=== PATIENT | female | born 1945 | race Caucasian/White ===

== ENCOUNTER 2016-07-25 18:48 | Inpatient (IN) | payer OTHER ==
[~2016-07-25] VITALS: Ht 156.2 cm; Wt 44.5 kg
[~2016-07-25 18:48] MED LIST: ADVAIR DISKU1 INH; ALBUTEROL HFA60 DOSE IN; ATIVAN0.5 MG PO; CARVEDILOL3.125 MG PO; EPIPEN 2-PAK0.3 MG; FERROUS SULFAT324 MG PO; MULTIVITAMIN1 TAB PO; NAPROSYN375 MG PO; PRILOSEC20 MG PO; SLOW-MAG PO
--- NOTE | 2016-07-25 20:15 | DIAGNOSTIC IMAGING REPORT ---
PROCEDURE: XR CHEST 2 VIEW INDICATION: GENERLIZED WEAKNESS AND HYPOXIA, initial encounter TECHNIQUE: PA and lateral view. COMPARISON: None. FINDINGS: Hyperinflation with blunting of the left costophrenic angle. Small left basilar infiltrate. Left mid lung scar. Cardiovascular structures are normal. Bony thorax is unremarkable. IMPRESSION: 1. Small left basilar infiltrate 2. COPD with left mid lung scarring
--- NOTE | 2016-07-25 20:32 | ED CLINICAL REPORT ---
Clinical Report - Physicians/Mid Levels [facility] [address] [place] [address] 07/25/2016 18:49 Patient: ELSY FIELDS Arrived- By private vehicle. Historian- patient. HISTORY OF PRESENT ILLNESS Chief Complaint: COUGH. Generalized weakness. This started pastmonth and is still present and worsening. It was abrupt in onset and has been constant but is not gone now. The illness is described as moderate. The patient has had a cough. She has had sputum production (thick yellow). (patient also having generalized weakness. Patient was recently seen by their doctor and prescribed Levaquin for urinary tract infection. Patient has been taking antibiotic for past several days without improvement Of generalize weakness. Patient reports that the urine has improved in color however.). Additional history - No known contact with a sick individual. Similar symptoms previously: Twice. Recent medical care: The patient was seen recently in a clinic. REVIEW OF SYSTEMS No headache, vomiting, diarrhea, abdominal pain or pedal edema. No calf pain or skin rash. All systems otherwise negative, except as recorded above. PAST HISTORY See nurses notes. SOCIAL HISTORY Smoker- current status unknown. No alcohol use or drug use. No recent travel. Is a local resident. ADDITIONAL NOTES The nursing notes have been reviewed. PHYSICAL EXAM Vital Signs: 07/25/2016 19:03 BP: 146/70. HR: 94. RR: 20. O2 saturation: 87%. Temp: 97.5 F. Hypertensive. Oxygen saturation normal. Appearance: Alert. No acute distress. Eyes: Pupils equal, round and reactive to light. Eyes normal inspection. ENT: Ears normal. Nose normal. Pharynx normal. Uvula midline. Neck: Normal inspection. Neck supple. CVS: Normal heart rate and rhythm. Heart sounds normal. Pulses normal. Respiratory: No respiratory distress. No respiratory distress. Mild rhonchi present in the left lung base posteriorly. No wheezes or stridor. Abdomen: Soft and nontender. No organomegaly. Back: Normal inspection. Skin: Skin warm and dry. Normal skin color. No rash. Normal skin turgor. Extremities: Extremities exhibit normal ROM. No lower extremity edema. Neuro: Oriented X 3. No motor deficit. No sensory deficit. LABS, X-RAYS, AND EKG Chest X-ray: (Acute left lower lobe pneumonia). Views: PA and lateral. The X-rays were independently viewed by me and interpreted contemporaneously by me. A comparison with prior films reveals that the findings are new. Laboratory Tests: CBC w Diff: (JULIO C: 07/28/2016 07:35) ( [facility] 07/28/2016 08:36) Final results Test Result Flag Units (Reference) WHITE BLOOD COUNT 8.4 K/uL (4.5-11.5) RED BLOOD COUNT 3.34 L M/uL (4.00-5.20) HEMOGLOBIN 10.8 L gm/dL (12.0-16.0) HEMATOCRIT 33.2 L % (36.0-46.0) MEAN CELL VOLUME 100 fL (80-100) MEAN CORPUSCULAR HGB 32 pg (26-34) MEAN CORPUSCULAR HGB CONC 32 g/dL (31-37) RED CELL DISTRIBUTION WIDTH 13.2 % (11.6-14.8) PLATELET COUNT 493 H K/uL (150-400) THIS MAY BE INACCURATE DUE TO SOME PLATELET CLUMPS NOTED.CONSISTENT WITH PREVIOUS RESULTS. NEUTROPHIL % 73.5 % (50-75) LYMPH % 8.3 L % (25-40) MONO % 11.7 % (3-14) EOSINOPHIL % 6.1 H % (0-4) BASOPHIL % 0.4 % (0-2) CMP: (JULIO C: 07/28/2016 07:35) ( MsgRcvd 07/28/2016 08:15) Final results Test Result Flag Units (Reference) GLUCOSE 93 mg/dL (70-110) BUN 4 L mg/dL (7-18) CREATININE 0.5 L mg/dL (0.6-1.3) Estimated GFR >60 mL/min Estimated GFR- >60 mL/min Note: Persistent reduction over 3 months in eGFR<60 mL/min/1.73 m2 defines CKD. Patients with eGFR values>=60 mL/min/1.73 m2 may also have CKD if evidence ofpersistent proteinuria. Additional information may be foundat [email or web address]. SODIUM 136 mmol/L (136-145) POTASSIUM 3.9 mmol/L (3.5-5.1) CHLORIDE 104 mmol/L (98-107) CARBON DIOXIDE 25 mmol/L (21-32) CALCIUM 7.9 L mg/dL (8.5-10.1) TOTAL PROTEIN 5.6 L g/dL (6.4-8.2) ALBUMIN 2.5 L g/dL (3.3-5.0) BILIRUBIN, TOTAL 0.1 mg/dL (0.0-1.0) ALKALINE PHOSPHATASE 54 U/L (46-116) AST (SGOT) 15 U/L (15-37) ALT (SGPT) 21 U/L (12-78) MAGNESIUM 1.7 L mg/dL (1.8-2.4) CBC w Diff: (JULIO C: 07/26/2016 04:40) ( MsgRcvd 07/26/2016 05:10) Final results Test Result Flag Units (Reference) WHITE BLOOD COUNT 6.1 K/uL (4.5-11.5) RED BLOOD COUNT 3.28 L M/uL (4.00-5.20) HEMOGLOBIN 10.7 L gm/dL (12.0-16.0) HEMATOCRIT 32.4 L % (36.0-46.0) MEAN CELL VOLUME 99 fL (80-100) MEAN CORPUSCULAR HGB 33 pg (26-34) MEAN CORPUSCULAR HGB CONC 33 g/dL (31-37) RED CELL DISTRIBUTION WIDTH 12.8 % (11.6-14.8) PLATELET COUNT 401 H K/uL (150-400) NEUTROPHIL % 66.5 % (50-75) LYMPH % 13.5 L % (25-40) MONO % 16.2 H % (3-14) EOSINOPHIL % 3.2 % (0-4) BASOPHIL % 0.6 % (0-2) BMP: (JULIO C: 07/26/2016 04:40) ( MsgRcvd 07/26/2016 05:22) Final results Test Result Flag Units (Reference) GLUCOSE 89 mg/dL (70-110) BUN 4 L mg/dL (7-18) CREATININE 0.5 L mg/dL (0.6-1.3) Estimated GFR >60 mL/min Estimated GFR- >60 mL/min Note: Persistent reduction over 3 months in eGFR<60 mL/min/1.73 m2 defines CKD. Patients with eGFR values>=60 mL/min/1.73 m2 may also have CKD if evidence ofpersistent proteinuria. Additional information may be foundat [email or web address]. SODIUM 137 mmol/L (136-145) POTASSIUM 4.4 mmol/L (3.5-5.1) CHLORIDE 104 mmol/L (98-107) CARBON DIOXIDE 23 mmol/L (21-32) CALCIUM 8.1 L mg/dL (8.5-10.1) UA-Culture if indicated: (JULIO C: 07/25/2016 19:20) ( [facility] 07/25/2016 20:04) Final results Test Result Flag Units (Reference) URINE COLOR YELLOW URINE APPEARANCE CLEAR URINE GLUCOSE NEGATIVE (NEGATIVE) URINE BILIRUBIN NEGATIVE (NEGATIVE) URINE KETONE NEGATIVE (NEGATIVE) URINE SPECIFIC GRAVITY 1.010 (1.010-1.030) URINE PH 7.0 (5.0-8.0) URINE PROTEIN NEGATIVE (NEGATIVE) URINE UROBILINOGEN 0.2 EU/dL (0.2-1.0) URINE NITRITE NEGATIVE (NEGATIVE) URINE BLOOD 2+ (NEGATIVE) URINE LEUK ESTERASE NEGATIVE (NEGATIVE) URINE RBC 3-5 rbc/hpf (0-1) URINE WBC 0-1 wbc/hpf (0-1) URINE EPITHELIAL CELLS 0-1 EPI/hpf (0-5) URINE BACTERIA NONE SEEN (NONE SEEN) URINE COMMENT CULT NOT INDICATED URINE CULTURES ARE SET-UP BASED ON THE FOLLOWING CRITERIA:POSITIVE NITRITEPOSITIVE LEUKOCYTE ESTERASEGREATER THAN 10 WHITE BLOOD CELLSMODERATE (2+) OR GREATER BACTERIA CBC w Diff: (JULIO C: 07/25/2016 19:20) ( [facility] 07/25/2016 19:56) Final results Test Result Flag Units (Reference) WHITE BLOOD COUNT 7.2 K/uL (4.5-11.5) RED BLOOD COUNT 3.68 L M/uL (4.00-5.20) HEMOGLOBIN 12.0 gm/dL (12.0-16.0) HEMATOCRIT 35.7 L % (36.0-46.0) MEAN CELL VOLUME 97 fL (80-100) MEAN CORPUSCULAR HGB 33 pg (26-34) MEAN CORPUSCULAR HGB CONC 34 g/dL (31-37) RED CELL DISTRIBUTION WIDTH 12.7 % (11.6-14.8) PLATELET COUNT 459 H K/uL (150-400) NEUTROPHIL % 71.1 % (50-75) LYMPH % 10.1 L % (25-40) MONO % 16.0 H % (3-14) EOSINOPHIL % 1.8 % (0-4) BASOPHIL % 1.0 % (0-2) PT with INR: (JULIO C: 07/25/2016 19:20) ( [facility] 07/25/2016 19:55) Final results Test Result Flag Units (Reference) INR 1.0 (0.8-1.2) Low Intensity Therapy: INR 1.5-2.0 PT range 18.5-23.1Mod.Intensity Therapy: INR 2.0-3.0 PT range 23.1-31.5High Intensity Therapy: INR 2.5-3.5 PT range 27.4-35.5High Intensity Therapy 2: INR 3.0-4.0 PT range 31.5-39.3 Lactate, Serum: (JULIO C: 07/25/2016 19:40) ( [facility] 07/25/2016 20:27) Final results Test Result Flag Units (Reference) LACTIC ACID 0.9 mmol/L (0.4-2.0) CMP: (JULIO C: 07/25/2016 19:20) ( [facility] 07/25/2016 20:07) Final results Test Result Flag Units (Reference) GLUCOSE 136 H mg/dL (70-110) BUN 11 mg/dL (7-18) CREATININE 0.7 mg/dL (0.6-1.3) Estimated GFR >60 mL/min Estimated GFR- >60 mL/min Note: Persistent reduction over 3 months in eGFR<60 mL/min/1.73 m2 defines CKD. Patients with eGFR values>=60 mL/min/1.73 m2 may also have CKD if evidence ofpersistent proteinuria. Additional information may be foundat [email or web address]. SODIUM 130 L mmol/L (136-145) POTASSIUM 4.4 mmol/L (3.5-5.1) CHLORIDE 95 L mmol/L (98-107) CARBON DIOXIDE 25 mmol/L (21-32) CALCIUM 8.5 mg/dL (8.5-10.1) TOTAL PROTEIN 7.0 g/dL (6.4-8.2) ALBUMIN 3.1 L g/dL (3.3-5.0) BILIRUBIN, TOTAL 0.3 mg/dL (0.0-1.0) ALKALINE PHOSPHATASE 71 U/L (46-116) AST (SGOT) 23 U/L (15-37) ALT (SGPT) 33 U/L (12-78) CBC w Diff: (JULIO C: 07/27/2016 05:55) ( MsgRcvd 07/27/2016 06:24) Final results Test Result Flag Units (Reference) WHITE BLOOD COUNT 6.5 K/uL (4.5-11.5) RED BLOOD COUNT 3.24 L M/uL (4.00-5.20) HEMOGLOBIN 10.6 L gm/dL (12.0-16.0) HEMATOCRIT 31.9 L % (36.0-46.0) MEAN CELL VOLUME 98 fL (80-100) MEAN CORPUSCULAR HGB 33 pg (26-34) MEAN CORPUSCULAR HGB CONC 33 g/dL (31-37) RED CELL DISTRIBUTION WIDTH 12.9 % (11.6-14.8) PLATELET COUNT 480 H K/uL (150-400) NEUTROPHIL % 67.8 % (50-75) LYMPH % 10.3 L % (25-40) MONO % 15.7 H % (3-14) EOSINOPHIL % 5.8 H % (0-4) BASOPHIL % 0.4 % (0-2) BMP: (JULIO C: 07/27/2016 05:55) ( [facility] 07/27/2016 06:34) Final results Test Result Flag Units (Reference) GLUCOSE 91 mg/dL (70-110) BUN 4 L mg/dL (7-18) CREATININE 0.5 L mg/dL (0.6-1.3) Estimated GFR >60 mL/min Estimated GFR- >60 mL/min Note: Persistent reduction over 3 months in eGFR<60 mL/min/1.73 m2 defines CKD. Patients with eGFR values>=60 mL/min/1.73 m2 may also have CKD if evidence ofpersistent proteinuria. Additional information may be foundat [email or web address]. SODIUM 138 mmol/L (136-145) POTASSIUM 4.5 mmol/L (3.5-5.1) CHLORIDE 105 mmol/L (98-107) CARBON DIOXIDE 26 mmol/L (21-32) CALCIUM 8.0 L mg/dL (8.5-10.1) MAGNESIUM 1.6 L mg/dL (1.8-2.4) Rapid Influenza Screen: (JULIO C: 07/25/2016 20:35) ( [facility] 07/25/2016 21:59) Final results SPECIMEN DESCRIPTION: Nasopharyngeal Swab Test Result Flag Units (Reference) RAPID INFLUENZA SCREEN DATE: 07/25/16 INFLUENZA A: NEGATIVE SCREEN FOR INFLUENZA A INFLUENZA B: NEGATIVE SCREEN FOR INFLUENZA B Blood Culture: (JULIO C: 07/25/2016 20:35) ( [facility] 07/30/2016 20:42) Final results Is patient on antibiotics? Y If so, list antibiotic: LEVAQUIN Test Result Flag Units (Reference) CULTURE, BLOOD NO GROWTH Blood Culture: (JULIO C: 07/25/2016 19:20) ( [facility] 07/30/2016 20:19) Final results Is patient on antibiotics? Y If so, list antibiotic: LEVAQUIN Test Result Flag Units (Reference) CULTURE, BLOOD NO GROWTH . PROGRESS AND PROCEDURES Course of Care: the patient is a pleasant 71-year-old female with past medical history significant for urinary tract infection, cancer in remission, and COPD presented for evaluation of generalize weakness. Patient has been coughing for the past [facility] blood cell count for evaluation of any metabolicderangements as a result of a possible infectious etiology. Patient is resting in bed and in no acute distress. Patient and family is agreeable to workup. Patient will likely be admitted based on history. Patient is currently not undergoing any chemotherapy at this time. Patient has been in remission for approximately one year or more. Patient's evaluation was significant for pneumonia noted on chest x-ray. Because the patient has been on Levaquin and still had the pneumonia, patient will be treated as an inpatient. Patient will be receiving azithromycin andceftriaxone. Blood cultures are ordered prior to the administration of antibiotics. Spoke with the hospitalist who works at the patient and also recommended patient have a rapid viral swab taken for further evaluation of her pneumonia. Discussed with family and patient workup, diagnosis and plan of care. All questions answered. Vision and family are agreeable with the treatment and plan. Disposition: Admitted to Acute Care. (Electronically signed by Allen Loja Dr. 08/02/2016 21:45)
--- NOTE | 2016-07-25 20:32 | ED CLINICAL REPORT ---
Clinical Report - Physicians/Mid Levels [facility] [address] [place] [address] 07/25/2016 18:49 Patient: ELSY FIELDS Arrived- By private vehicle. Historian- patient. HISTORY OF PRESENT ILLNESS Chief Complaint: COUGH. Generalized weakness. This started pastmonth and is still present and worsening. It was abrupt in onset and has been constant but is not gone now. The illness is described as moderate. The patient has had a cough. She has had sputum production (thick yellow). (patient also having generalized weakness. Patient was recently seen by their doctor and prescribed Levaquin for urinary tract infection. Patient has been taking antibiotic for past several days without improvement Of generalize weakness. Patient reports that the urine has improved in color however.). Additional history - No known contact with a sick individual. Similar symptoms previously: Twice. Recent medical care: The patient was seen recently in a clinic. REVIEW OF SYSTEMS No headache, vomiting, diarrhea, abdominal pain or pedal edema. No calf pain or skin rash. All systems otherwise negative, except as recorded above. PAST HISTORY See nurses notes. SOCIAL HISTORY Smoker- current status unknown. No alcohol use or drug use. No recent travel. Is a local resident. ADDITIONAL NOTES The nursing notes have been reviewed. PHYSICAL EXAM Vital Signs: 07/25/2016 19:03 BP: 146/70. HR: 94. RR: 20. O2 saturation: 87%. Temp: 97.5 F. Hypertensive. Oxygen saturation normal. Appearance: Alert. No acute distress. Eyes: Pupils equal, round and reactive to light. Eyes normal inspection. ENT: Ears normal. Nose normal. Pharynx normal. Uvula midline. Neck: Normal inspection. Neck supple. CVS: Normal heart rate and rhythm. Heart sounds normal. Pulses normal. Respiratory: No respiratory distress. No respiratory distress. Mild rhonchi present in the left lung base posteriorly. No wheezes or stridor. Abdomen: Soft and nontender. No organomegaly. Back: Normal inspection. Skin: Skin warm and dry. Normal skin color. No rash. Normal skin turgor. Extremities: Extremities exhibit normal ROM. No lower extremity edema. Neuro: Oriented X 3. No motor deficit. No sensory deficit. LABS, X-RAYS, AND EKG Chest X-ray: (Acute left lower lobe pneumonia). Views: PA and lateral. The X-rays were independently viewed by me and interpreted contemporaneously by me. A comparison with prior films reveals that the findings are new. Laboratory Tests: CBC w Diff: (JULIO C: 07/28/2016 07:35) ( [facility] 07/28[facility] 08:36) Final results Test Result Flag Units (Reference) WHITE BLOOD COUNT 8.4 K/uL (4.5-11.5) RED BLOOD COUNT 3.34 L M/uL (4.00-5.20) HEMOGLOBIN 10.8 L gm/dL (12.0-16.0) HEMATOCRIT 33.2 L % (36.0-46.0) MEAN CELL VOLUME 100 fL (80-100) MEAN CORPUSCULAR HGB 32 pg (26-34) MEAN CORPUSCULAR HGB CONC 32 g/dL (31-37) RED CELL DISTRIBUTION WIDTH 13.2 % (11.6-14.8) PLATELET COUNT 493 H K/uL (150-400) THIS MAY BE INACCURATE DUE TO SOME PLATELET CLUMPS NOTED.CONSISTENT WITH PREVIOUS RESULTS. NEUTROPHIL % 73.5 % (50-75) LYMPH % 8.3 L % (25-40) MONO % 11.7 % (3-14) EOSINOPHIL % 6.1 H % (0-4) BASOPHIL % 0.4 % (0-2) CMP: (JULIO C: 07/28/2016 07:35) ( MsgRcvd 07/28/2016 08:15) Final results Test Result Flag Units (Reference) GLUCOSE 93 mg/dL (70-110) BUN 4 L mg/dL (7-18) CREATININE 0.5 L mg/dL (0.6-1.3) Estimated GFR >60 mL/min Estimated GFR- >60 mL/min Note: Persistent reduction over 3 months in eGFR<60 mL/min/1.73 m2 defines CKD. Patients with eGFR values>=60 mL/min/1.73 m2 may also have CKD if evidence ofpersistent proteinuria. Additional information may be foundat [email or web address]. SODIUM 136 mmol/L (136-145) POTASSIUM 3.9 mmol/L (3.5-5.1) CHLORIDE 104 mmol/L (98-107) CARBON DIOXIDE 25 mmol/L (21-32) CALCIUM 7.9 L mg/dL (8.5-10.1) TOTAL PROTEIN 5.6 L g/dL (6.4-8.2) ALBUMIN 2.5 L g/dL (3.3-5.0) BILIRUBIN, TOTAL 0.1 mg/dL (0.0-1.0) ALKALINE PHOSPHATASE 54 U/L (46-116) AST (SGOT) 15 U/L (15-37) ALT (SGPT) 21 U/L (12-78) MAGNESIUM 1.7 L mg/dL (1.8-2.4) CBC w Diff: (JULIO C: 07/26/2016 04:40) ( MsgRcvd 07/26/2016 05:10) Final results Test Result Flag Units (Reference) WHITE BLOOD COUNT 6.1 K/uL (4.5-11.5) RED BLOOD COUNT 3.28 L M/uL (4.00-5.20) HEMOGLOBIN 10.7 L gm/dL (12.0-16.0) HEMATOCRIT 32.4 L % (36.0-46.0) MEAN CELL VOLUME 99 fL (80-100) MEAN CORPUSCULAR HGB 33 pg (26-34) MEAN CORPUSCULAR HGB CONC 33 g/dL (31-37) RED CELL DISTRIBUTION WIDTH 12.8 % (11.6-14.8) PLATELET COUNT 401 H K/uL (150-400) NEUTROPHIL % 66.5 % (50-75) LYMPH % 13.5 L % (25-40) MONO % 16.2 H % (3-14) EOSINOPHIL % 3.2 % (0-4) BASOPHIL % 0.6 % (0-2) BMP: (JULIO C: 07/26/2016 04:40) ( MsgRcvd 07/26/2016 05:22) Final results Test Result Flag Units (Reference) GLUCOSE 89 mg/dL (70-110) BUN 4 L mg/dL (7-18) CREATININE 0.5 L mg/dL (0.6-1.3) Estimated GFR >60 mL/min Estimated GFR- >60 mL/min Note: Persistent reduction over 3 months in eGFR<60 mL/min/1.73 m2 defines CKD. Patients with eGFR values>=60 mL/min/1.73 m2 may also have CKD if evidence ofpersistent proteinuria. Additional information may be foundat [email or web address]. SODIUM 137 mmol/L (136-145) POTASSIUM 4.4 mmol/L (3.5-5.1) CHLORIDE 104 mmol/L (98-107) CARBON DIOXIDE 23 mmol/L (21-32) CALCIUM 8.1 L mg/dL (8.5-10.1) UA-Culture if indicated: (JULIO C: 07/25/2016 19:20) ( [facility] 07/25/2016 20:04) Final results Test Result Flag Units (Reference) URINE COLOR YELLOW URINE APPEARANCE CLEAR URINE GLUCOSE NEGATIVE (NEGATIVE) URINE BILIRUBIN NEGATIVE (NEGATIVE) URINE KETONE NEGATIVE (NEGATIVE) URINE SPECIFIC GRAVITY 1.010 (1.010-1.030) URINE PH 7.0 (5.0-8.0) URINE PROTEIN NEGATIVE (NEGATIVE) URINE UROBILINOGEN 0.2 EU/dL (0.2-1.0) URINE NITRITE NEGATIVE (NEGATIVE) URINE BLOOD 2+ (NEGATIVE) URINE LEUK ESTERASE NEGATIVE (NEGATIVE) URINE RBC 3-5 rbc/hpf (0-1) URINE WBC 0-1 wbc/hpf (0-1) URINE EPITHELIAL CELLS 0-1 EPI/hpf (0-5) URINE BACTERIA NONE SEEN (NONE SEEN) URINE COMMENT CULT NOT INDICATED URINE CULTURES ARE SET-UP BASED ON THE FOLLOWING CRITERIA:POSITIVE NITRITEPOSITIVE LEUKOCYTE ESTERASEGREATER THAN 10 WHITE BLOOD CELLSMODERATE (2+) OR GREATER BACTERIA CBC w Diff: (JULIO C: 07/25/2016 19:20) ( [facility] 07/25/2016 19:56) Final results Test Result Flag Units (Reference) WHITE BLOOD COUNT 7.2 K/uL (4.5-11.5) RED BLOOD COUNT 3.68 L M/uL (4.00-5.20) HEMOGLOBIN 12.0 gm/dL (12.0-16.0) HEMATOCRIT 35.7 L % (36.0-46.0) MEAN CELL VOLUME 97 fL (80-100) MEAN CORPUSCULAR HGB 33 pg (26-34) MEAN CORPUSCULAR HGB CONC 34 g/dL (31-37) RED CELL DISTRIBUTION WIDTH 12.7 % (11.6-14.8) PLATELET COUNT 459 H K/uL (150-400) NEUTROPHIL % 71.1 % (50-75) LYMPH % 10.1 L % (25-40) MONO % 16.0 H % (3-14) EOSINOPHIL % 1.8 % (0-4) BASOPHIL % 1.0 % (0-2) PT with INR: (JULIO C: 07/25/2016 19:20) ( [facility] 07/25/2016 19:55) Final results Test Result Flag Units (Reference) INR 1.0 (0.8-1.2) Low Intensity Therapy: INR 1.5-2.0 PT range 18.5-23.1Mod.Intensity Therapy: INR 2.0-3.0 PT range 23.1-31.5High Intensity Therapy: INR 2.5-3.5 PT range 27.4-35.5High Intensity Therapy 2: INR 3.0-4.0 PT range 31.5-39.3 Lactate, Serum: (JULIO C: 07/25/2016 19:40) ( [facility] 07/25/2016 20:27) Final results Test Result Flag Units (Reference) LACTIC ACID 0.9 mmol/L (0.4-2.0) CMP: (JULIO C: 07/25/2016 19:20) ( [facility] 07/25/2016 20:07) Final results Test Result Flag Units (Reference) GLUCOSE 136 H mg/dL (70-110) BUN 11 mg/dL (7-18) CREATININE 0.7 mg/dL (0.6-1.3) Estimated GFR >60 mL/min Estimated GFR- >60 mL/min Note: Persistent reduction over 3 months in eGFR<60 mL/min/1.73 m2 defines CKD. Patients with eGFR values>=60 mL/min/1.73 m2 may also have CKD if evidence ofpersistent proteinuria. Additional information may be foundat [email or web address]. SODIUM 130 L mmol/L (136-145) POTASSIUM 4.4 mmol/L (3.5-5.1) CHLORIDE 95 L mmol/L (98-107) CARBON DIOXIDE 25 mmol/L (21-32) CALCIUM 8.5 mg/dL (8.5-10.1) TOTAL PROTEIN 7.0 g/dL (6.4-8.2) ALBUMIN 3.1 L g/dL (3.3-5.0) BILIRUBIN, TOTAL 0.3 mg/dL (0.0-1.0) ALKALINE PHOSPHATASE 71 U/L (46-116) AST (SGOT) 23 U/L (15-37) ALT (SGPT) 33 U/L (12-78) CBC w Diff: (JULIO C: 07/27/2016 05:55) ( MsgRcvd 07/27/2016 06:24) Final results Test Result Flag Units (Reference) WHITE BLOOD COUNT 6.5 K/uL (4.5-11.5) RED BLOOD COUNT 3.24 L M/uL (4.00-5.20) HEMOGLOBIN 10.6 L gm/dL (12.0-16.0) HEMATOCRIT 31.9 L % (36.0-46.0) MEAN CELL VOLUME 98 fL (80-100) MEAN CORPUSCULAR HGB 33 pg (26-34) MEAN CORPUSCULAR HGB CONC 33 g/dL (31-37) RED CELL DISTRIBUTION WIDTH 12.9 % (11.6-14.8) PLATELET COUNT 480 H K/uL (150-400) NEUTROPHIL % 67.8 % (50-75) LYMPH % 10.3 L % (25-40) MONO % 15.7 H % (3-14) EOSINOPHIL % 5.8 H % (0-4) BASOPHIL % 0.4 % (0-2) BMP: (JULIO C: 07/27/2016 05:55) ( [facility] 07/27/2016 06:34) Final results Test Result Flag Units (Reference) GLUCOSE 91 mg/dL (70-110) BUN 4 L mg/dL (7-18) CREATININE 0.5 L mg/dL (0.6-1.3) Estimated GFR >60 mL/min Estimated GFR- >60 mL/min Note: Persistent reduction over 3 months in eGFR<60 mL/min/1.73 m2 defines CKD. Patients with eGFR values>=60 mL/min/1.73 m2 may also have CKD if evidence ofpersistent proteinuria. Additional information may be foundat [email or web address]. SODIUM 138 mmol/L (136-145) POTASSIUM 4.5 mmol/L (3.5-5.1) CHLORIDE 105 mmol/L (98-107) CARBON DIOXIDE 26 mmol/L (21-32) CALCIUM 8.0 L mg/dL (8.5-10.1) MAGNESIUM 1.6 L mg/dL (1.8-2.4) Rapid Influenza Screen: (JULIO C: 07/25/2016 20:35) ( [facility] 07/25/2016 21:59) Final results SPECIMEN DESCRIPTION: Nasopharyngeal Swab Test Result Flag Units (Reference) RAPID INFLUENZA SCREEN DATE: 07/25/16 INFLUENZA A: NEGATIVE SCREEN FOR INFLUENZA A INFLUENZA B: NEGATIVE SCREEN FOR INFLUENZA B Blood Culture: (JULIO C: 07/25/2016 20:35) ( [facility] [place] 07/30/2016 20:42) Final results Is patient on antibiotics? Y If so, list antibiotic: LEVAQUIN Test Result Flag Units (Reference) CULTURE, BLOOD NO GROWTH Blood Culture: (JULIO C: 07/25/2016 19:20) ( [facility] [place] 07/30/2016 20:19) Final results Is patient on antibiotics? Y If so, list antibiotic: LEVAQUIN Test Result Flag Units (Reference) CULTURE, BLOOD NO GROWTH . PROGRESS AND PROCEDURES Course of Care: the patient is a pleasant 71-year-old female with past medical history significant for urinary tract infection, cancer in remission, and COPD presented for evaluation of generalize weakness. Patient has been [facility] for the [facility] cell count for evaluation of any metabolicderangements as a result of a possible infectious etiology. Patient is resting in bed and in no acute distress. Patient and family is agreeable to workup. Patient will likely be admitted based on history. Patient is currently not undergoing any chemotherapy at this time. Patient has been in remission for approximately one year or more. Patient's evaluation was significant for pneumonia noted on chest x-ray. Because the patient has been on Levaquin and still had the pneumonia, patient will be treated as an inpatient. Patient will be receiving azithromycin andceftriaxone. Blood cultures are ordered prior to the administration of antibiotics. Spoke with the hospitalist who works at the patient and also recommended patient have a rapid viral swab taken for further evaluation of her pneumonia. Discussed with family and patient workup, diagnosis and plan of care. All questions answered. Vision and family are agreeable with the treatment and plan. Disposition: Admitted to Acute Care. (Electronically signed by Allen Loja Dr. 08/02/2016 21:45)
--- NOTE | 2016-07-25 20:32 | ED ORDER SUMMARY ---
..... Patient: ELSY FIELDS OrderSheet [facility] VisitID: [id number] [place] [address] 71y, F Registration Date/Time: 07/25/2016 ORDER SHEET Weight: 43.0 kg Allergies: No Known Drug Allergy, Bee Venom, CONTRAST DYE, Iodine GENERAL ORDERS: Chest 2V Urgent (19:35 07/25/2016 Dianna Natarajan) (Ack 19:40 LTapper) (20:13 LTapper) CBC w Diff Urgent (19:35 07/25/2016 Dianna Natarajan) (Ack 19:40 LTapper) (19:52 DBeyer R.N.) CMP Urgent (19:35 07/25/2016 Dianna Natarajan) (Ack 19:40 LTapper) (19:52 DBeyer R.N.) UA-Culture if indicated Urgent (19:35 07/25/2016 Dianna Natarajan) (Ack 19:40 LTapper) (19:52 DBeyer R.N.) PT with INR Urgent (19:35 07/25/2016 Dianna Natarajan) (Ack 19:40 LTapper) (19:52 DBeyer R.N.) Lactate, Serum Urgent (19:35 07/25/2016 Dianna Natarajan) (Ack 19:40 LTapper) (19:52 DBeyer R.N.) Pulse oximeter (19:35 07/25/2016 Dianna Natarajan) (19:52 DBeyer R.N.) Blood Culture (Yes) (levaquin) Urgent (20:14 07/25/2016 Dianna Natarajan) (Ack 20:17 LTapper) (20:33 DBeyer R.N.) FilMarray Respiratory Panel Urgent (20:19 07/25/2016 Dianna Natarajan) (Ack 20:21 LTapper) (20:33 DBeyer R.N.) MEDICATION ORDERS: IV FLUIDS: IV NS : initial bolus 500 mL (1000 mL/hr), then none - for X1 (NOW) (19:35 07/25/2016 Dianna Natarajan) (19:51 DBeyer R.NHeidy) Ceftriaxone IV 2 gm/50mL (NOW) (20:14 07/25/2016 Dianna Natarajan) (20:38 John R.N.) Azithromycin IV 500 mg/250 mL (NOW) (20:14 07/25/2016 Dianna Natarajan) (Ack 20:42 HSoule) (21:01 John R.N.) Zofran IV 4 mg (NOW) (21:16 07/25/2016 John Chodwhury verbal order read back to Dianna Natarajan) (21:17 DBeytammy R.N.) ORDER SHEET NOTES: [Electronically signed by Kavon Martinez R.N. (22:33 07/27/2016)] [Electronically signed by Allen Loja Dr. (21:45 08/02/2016)] [Electronically locked/signed by Kavon Martinez R.N. (22:33 07/27/2016)]
--- NOTE | 2016-07-25 20:32 | ED ORDER SUMMARY ---
..... Patient: ELSY FIELDS OrderSheet [facility] VisitID: [id number] [place] [address] 71y, F Registration Date/Time: 07/25/2016 ORDER SHEET Weight: 43.0 kg Allergies: No Known Drug Allergy, Bee Venom, CONTRAST DYE, Iodine GENERAL ORDERS: Chest 2V Urgent (19:35 07/25/2016 Dianna Natarajan) (Ack 19:40 LTapper) (20:13 LTapper) CBC w Diff Urgent (19:35 07/25/2016 Dianna Natarajan) (Ack 19:40 LTapper) (19:52 DBeyer R.N.) CMP Urgent (19:35 07/25/2016 Dianna Natarajan) (Ack 19:40 LTapper) (19:52 DBeyer R.N.) UA-Culture if indicated Urgent (19:35 07/25/2016 Dianna Natarajan) (Ack 19:40 LTapper) (19:52 DBeyer R.N.) PT with INR Urgent (19:35 07/25/2016 Dianna Natarajan) (Ack 19:40 LTapper) (19:52 DBeyer R.N.) Lactate, Serum Urgent (19:35 07/25/2016 Dianna Natarajan) (Ack 19:40 LTapper) (19:52 DBeyer R.N.) Pulse oximeter (19:35 07/25/2016 Dianna Natarajan) (19:52 DBeyer R.N.) Blood Culture (Yes) (levaquin) Urgent (20:14 07/25/2016 Dianna Natarajan) (Ack 20:17 LTapper) (20:33 DBeyer R.N.) FilMarray Respiratory Panel Urgent (20:19 07/25/2016 Dianna Natarajan) (Ack 20:21 LTapper) (20:33 DBeyer R.N.) MEDICATION ORDERS: IV FLUIDS: IV NS : initial bolus 500 mL (1000 mL/hr), then none - for X1 (NOW) (19:35 07/25/2016 Dianna Natarajan) (19:51 DBeyer R.NHeidy) Ceftriaxone IV 2 gm/50mL (NOW) (20:14 07/25/2016 Dianna Natarajan) (20:38 John R.N.) Azithromycin IV 500 mg/250 mL (NOW) (20:14 07/25/2016 Dianna Natarajan) (Ack 20:42 HSoule) (21:01 John R.N.) Zofran IV 4 mg (NOW) (21:16 07/25/2016 John Chowdhury verbal order read back to Dianna Natarajan) (21:17 DBeytammy R.N.) ORDER SHEET NOTES: [Electronically signed by Kavon Martinez R.N. (22:33 07/27/2016)] [Electronically signed by Allen Loja Dr. (21:45 08/02/2016)] [Electronically locked/signed by Kavon Martinez R.N. (22:33 07/27/2016)]
--- NOTE | 2016-07-25 20:32 | ED NURSING NOTES ---
Clinical Report - Nurses [facility] [address] [place] [address] 07/25/2016 18:49 Patient: ELSY FIELDS TRIAGE Triage time 19:04 Jul 25 2016. Acuity: LEVEL 3. Chief Complaint: DENTAL PAIN and BACK PAIN. --19:10 Kavon Martinez R.N. 19:03 07/25/16. BP: 146/70. HR: 94. RR: 20. O2 saturation: 87%. Temp: 97.5 F. Pain level now 01/03. --19:10 Kavon Martinez R.N. Weight: 43 kg. Height/Length: 61 inches. BMI: 17.9. --19:09 Kavon Martinez R.N. Medications Advair Diskus Inhalation. Albuterol Sulfate HFA Inhalation. Albuterol-Ipratropium Inhalation. Bactrim DS Oral 1 tablet, 2x a day (Started Today). Calcitonin ([place]) Nasal. Carvedilol Phosphate ER Oral 3.125 mg , bid. Epinephrine Injection, as needed. Ferrous Sulfate Oral. Magnesium Oral. --19:06 Kavon Martinez R.N. OxyCODONE HCl Oral (Tablet 5 mg) 1/2 tablet- 1 tablet, 3x a day as needed. TiZANidine HCl Oral (Tablet 2 mg) 1 tablet, 2x a day. Vitamins/Minerals Oral. --19:06 Kavon Martinez R.N. Amoxicillin Oral. --19:07 Kavon Martinez R.N. Levofloxacin Oral. --19:07 Kavon Martinez R.N. Allergies No Known Drug Allergy. --19:05 Kavon Martinez R.N. Bee Venom. CONTRAST DYE. Iodine. --19:06 Kavon Martinez R.N. History Arrived by private vehicle. Historian: patient. ( Pt reports kidney infection follow by abscessed tooth. Today reports increased pain dizziness and disorientation). SOCIAL HX: Heavy tobacco smoker- less than 1 pack per day. Alcohol use; consumes beer occasionally. --19:10 Kavon Martinez R.N. PROBLEMS: Pyelonephritis. Hypertension. UTI - Urinary Tract Infection. COPD - Chronic Obstructive Pulmonary Disease. Bronchitis. Hernia. 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 Myocardial Infarction. Asthma. --19:07 Kavon Martinez R.N. ADDITIONAL SURGERIES: Appendectomy. . Hysterectomy. Oophorectomy. Salpingectomy. Tonsillectomy & Adenoidectomy. Ureterostomy. --19:08 Kavon Martinez R.N. Interventions ID and allergy band on patient. To treatment room. --19:10 Kavon Martinez R.N. PHYSICAL ASSESSMENT 19:10 07/25/16. GENERAL / NEURO / PSYCH: Alert. Oriented X 4. Appears in no acute distress. HEENT: Pupils equal, round and reactive to light. RESPIRATORY: Respirations not labored. Decreased breath sounds. GI / : Abdomen soft. SKIN: Skin is warm and dry. --19:10 Kavon Martinez R.N. NURSING PROGRESS NOTES 19:11 07/25/16. Monitoring of patient in place. Patient gowned. Two patient identifiers checked. Side rails up x 1. --19:11 Kavon Martinez R.N. 19:36 07/25/2016 Site #1 started via IV wrist with an 20g angiocath, with aseptic technique and good blood return; one attempt. Blood drawn: rainbow set and cultures x1. Labeled in the presence of the patient and sent to the lab. --19:36 Kavon Martinez R.N. 19:51 07/25/2016 Started bag #1 500 mL IV Fluids IV NS (Saline); bolus of 500 mL wide open via site #1. Allergies verified and confirmed 5 rights. IV patency established. IV site checked: no pain, redness, or swelling. IV flushed thoroughly pre- and post-medication administration. --19:51 Kavon Martinez R.N. 20:15 07/25/2016 IV Fluids IV NS Discontinued: bag #1 completed. Total amount infused: 500 mL. IV patency established. IV site checked: no pain, redness, or swelling. IV flushed thoroughly. --21:15 Kavon Martinez R.N. 20:38 07/25/2016 Started 2 gm of Ceftriaxone IVPB in bag #1 50 mL; at 150 mL/hr over 20 minute(s) via site #1 via IV pump. Allergies verified and confirmed 5 rights. IV patency established. IV site checked: no pain, redness, or swelling. IV flushed thoroughly pre- and post-medication administration. --20:38 Kavon Martinez R.N. 20:41 07/25/16. BP: 100/51. HR: 84. O2 saturation: 100%. --20:42 Kavon Martinez R.N. ( Pt resting in bed, resting comfortable in bed. no complaints at this time.). --20:42 Kavon Martinez R.N. 20:58 07/25/2016 Ceftriaxone IVPB Discontinued: bag #1 completed. Total amount infused: 50 mL. IV patency established. IV site checked: no pain, redness, or swelling. IV flushed thoroughly. --20:58 Kavon Martinez R.N. 21:00 07/25/2016 Started 500 mg of Azithromycin IVPB in bag #1 250 mL; at 255 mL/hr via site #1 via IV pump. Allergies verified and confirmed 5 rights. IV patency established. IV site checked: no pain, redness, or swelling. IV flushed thoroughly pre- and post-medication administration. Completed per protocol. --21:01 Kavon Martinez R.N. 21:17 07/25/2016 Zofran (Ondansetron HCl) IVP 4 mg given over 2 minute(s) via site #1. Allergies verified and confirmed 5 rights. IV patency established. IV site checked: no pain, redness, or swelling. IV flushed thoroughly pre- and post-medication administration. IVP given by RN. --21:17 Kavon Martinez R.N. 22:06 07/25/2016 Azithromycin IVPB Discontinued: bag #1 completed. Total amount infused: 250 mL. IV patency established. IV site checked: no pain, redness, or swelling. IV flushed thoroughly. --22:06 Tori Santamaria 22:25 07/25/16. BP: 123/60. HR: 86. O2 saturation: 95%. --22:26 Kavon Martinez R.N. 23:21 07/25/16. BP: 107/56. HR: 95. --23:22 Kavon Martinez R.N. DISPOSITION / DISCHARGE ( unable to give report RN in pt room). --22:10 Kavon Martinez R.N. 22:33 07/25/16. Report was given to a nurse via a phone call. Report included patient's care, treatment, medications, reviewed medication reconcilliation, and condition (including any recent changes or anticipated changes). All questions were answered. Report was acknowledged. ( report called to hui AQUINO questions answered, will call when room is ready.). --22:33 Kavon Martinez R.N. 23:45 07/25/16. BP: 129/68. HR: 79. RR: 18. O2 saturation: 96%. Temp: 98 F. Pain level now 0/10. --23:46 Kavon Martinez R.N. Locked/Released at 07/27/2016 22:33 by Kavon Martinez R.N.
--- NOTE | 2016-07-25 22:22 | History & Physical Report ---
Admission Admit Date 07/25/16 History Chief Complaint Cough, Weakness History of Present Illness Patient is a 71 year old female with a past medical history of COPD, Essential Hypertension, Coronary Artery Disease, Lung Cancer, and Tobacco Use Disorder. She presents to the ER today complaining of "not feeling well". Pt states for the last several days she has been feeling quite ill. Pt states her symptoms started nearly a month ago with a cough and runny nose. Her symptoms seemed to resolve but over the last week, her cough has been worse. She states the cough is productive of clear colored sputum. She also reports mild shortness of breath over the last several days and feeling nauseated. Pt does endorse an intermittent tactile fever and chills. She denies any chest pain, vomiting, or diarrhea. Pt was seen recently by her PCP as an outpatient and has been taking Levaquin for the last several days, without any improvement in her symptoms. Pt has no other complaints or concerns at this time. Patient History 1. COPD (chronic obstructive pulmonary disease) 2. Tobacco use disorder 3. Essential hypertension 4. Coronary artery disease 5. Lung cancer Social History Pt reports chronic tobacco use. She denies consumption of alcohol or use of illicit drugs. Pts daughter is her live-in caregiver. Pt does not require any assitive devices at baseline. Family History Family history was reviewed; no changes noted. Medications and Allergies Medications Current Medications Sig/Marlene Start time Last Medication Dose Route Stop Time Status Admin Azithromycin 500 MG Q24H 07/26 2100 AC Sodium Chloride 250 ML IV 07/28 2199 Ceftriaxone Sodium/ 50 ML Q24H 07/26 2000 AC Dextrose IV Acetaminophen 650 MG Q6H PRN 07/25 2145 AC PO Albuterol/Ipratropium 3 ML Q6H PRN 07/25 2145 AC IN Docusate Sodium 250 MG BID PRN 07/25 2145 AC PO Morphine Sulfate 1 MG Q6H PRN 07/25 214 AC IV Naloxone HCl 0.4 MG PRN PRN 07/25 2145 AC IV Ondansetron HCl 4 MG Q6H PRN 07/25 214 AC IV Sodium Chloride 1,000 ML ASDIRECTED 07/25 2145 AC IV Zolpidem Tartrate 5 MG QHS PRN 07/25 214 AC PO Pts home medications have not yet been reconciled and she is unable to tell me which medications she takes. Allergies Coded Allergies: Bee Venom (Severe, ANAPHYLAXIS 03/28/15) Iodinated Diagnostic Agents (Severe, SHORTNESS OF BREATH 03/29/15) Review of Systems Other All systems reviewed and are negative. Please see HPI for more details. Physical Exam Vital Signs / I&Os TEMP: 99.0 HR: 75 BP: 131/84 RR: 18 SpO2: 93% on room air Other GENERAL: NAD; Pt laying comfortably in bed HEENT: AT/NC; PERRLA, EOMI; MM Moist CARDIAC: RRR, No M/R/G appreciated PULM: Decreased breath sounds over left base, No wheezes appreciated ABD: Soft, NT, ND, Positive BS in all quadrants; No hepatosplenomegaly appreciated EXT: No C/C/E in bilateral upper and lower extremity; No calve tenderness bilaterally SKIN: Warm, dry, pink, and intact NEURO: Alert and oriented x3; Following all commands PSYCH: Normal mood and affect LAB Results Laboratory Tests 07/25 192 Chemistry Plasma Sodium (136 - 145 mmol/L) 130 Plasma Potassium (3.5 - 5.1 mmol/L) 4.4 Plasma Chloride (98 - 107 mmol/L) 95 CO2 (Enzymatic) (21 - 32 mmol/L) 25 BUN (7 - 18 mg/dL) 11 Creatinine (0.6 - 1.3 mg/dL) 0.7 Est GFR ( Amer) (mL/min) >60 Est GFR (Non-Af Amer) (mL/min) >60 Glucose (70 - 110 mg/dL) 136 Lactic Acid (0.4 - 2.0 mmol/L) 0.9 Plasma Calcium (8.5 - 10.1 mg/dL) 8.5 Total Bilirubin (0.0 - 1.0 mg/dL) 0.3 AST (15 - 37 U/L) 23 ALT (12 - 78 U/L) 33 Alkaline Phosphatase (46 - 116 U/L) 71 Total Protein (6.4 - 8.2 g/dL) 7.0 Albumin (3.3 - 5.0 g/dL) 3.1 Coagulation INR (0.8 - 1.2) 1.0 Hematology WBC (4.5 - 11.5 K/uL) 7.2 RBC (4.00 - 5.20 M/uL) 3.68 Hgb (12.0 - 16.0 gm/dL) 12.0 Hct (36.0 - 46.0 %) 35.7 MCV (80 - 100 fL) 97 MCH (26 - 34 pg) 33 RDW (11.6 - 14.8 %) 12.7 Neut % (Auto) (50 - 75 %) 71.1 Lymph % (Auto) (25 - 40 %) 10.1 [place] % (Auto) (3 - 14 %) 16.0 Eos % (Auto) (0 - 4 %) 1.8 Baso % (Auto) (0 - 2 %) 1.0 Plt Count, EDTA (150 - 400 K/uL) 459 PUBS MCHC (31 - 37 g/dL) 34 Urines Urine Color YELLOW Urine Appearance CLEAR Urine pH (5.0 - 8.0) 7.0 Ur Specific [place] (1.010 - 1.030) 1.010 Urine Protein (NEGATIVE) NEGATIVE Urine Ketones (NEGATIVE) NEGATIVE Urine Blood (NEGATIVE) 2+ Urine Nitrite (NEGATIVE) NEGATIVE Urine Bilirubin (NEGATIVE) NEGATIVE Urine Urobilinogen (0.2 - 1.0 EU/dL) 0.2 Ur Leukocyte Esterase (NEGATIVE) NEGATIVE Urine RBC (0 - 1 rbc/hpf) 3-5 Urine WBC (0 - 1 wbc/hpf) 0-1 Ur Epithelial Cells (0 - 5 EPI/hpf) 0-1 Urine Bacteria (NONE SEEN) NONE SEEN Urine Glucose (NEGATIVE) NEGATIVE Urine Comment CULT NOT INDICATED Microbiology Date/Time Procedure - Status Source Growth 07/25 2035 Influenza Screen - COMP NASALPHAR 07/25 2035 Blood Culture - RECD BLOOD 07/25 1920 Blood Culture - RECD BLOOD Imaging XR CHEST 2 VIEW INDICATION: GENERLIZED WEAKNESS AND HYPOXIA, initial encounter TECHNIQUE: PA and lateral view. COMPARISON: None. FINDINGS: Hyperinflation with blunting of the left costophrenic angle. Small left basilar infiltrate. Left mid lung scar. Cardiovascular structures are normal. Bony thorax is unremarkable. IMPRESSION: 1. Small left basilar infiltrate 2. COPD with left mid lung scarring Assessment and Plan Problem List 1. Pneumonia Plan - Present on admission - Pt did not seem to respond to PO Levaquin as an outpatient - Start IV Rocephin and Azithromycin now - Blood cultures x2 taken in the ER - Will order a Repiratory Viral Panel now - Check urine Strep Pneumoniae Ag now - Check urine Legionella Ag now - Supplemental O2 to keep SpO2 greater than 92% - Breathing treatments PRN 2. Hyponatremia Plan - Start IV Normal Saline at 100 mL/hour - Recheck BMP in AM 3. COPD (chronic obstructive pulmonary disease) Plan - Not in acute exacerbation - Start Duo-Neb breathing treatments q 6 hours PRN while in hospital 4. Essential hypertension Plan - Pts home medications have not been reconciled, and pt is unaware of which medications she takes and the doses of those medications; Day team to restart pts home medications in AM if a list of medications can be obtained 5. Coronary artery disease Plan - Pts home medications have not been reconciled, and pt is unaware of which medications she takes and the doses of those medications; Day team to restart pts home medications in AM if a list of medications can be obtained 6. Tobacco use disorder Plan - Pt counseled to quit smoking E&M Codes Admission: Inpt-High/00340
[2016-07-26] VITALS (7 sets, daily range): BP systolic 122–159; BP diastolic 58–86
[2016-07-26] MEDS ORDERED: OXAYDO5 MG PO (00:41)
--- NOTE | 2016-07-26 20:46 | Progress Note ---
Subjective General pT. ADMITTED with pneumonia and COPD and major flare of lower back pain also nausea, anorexia. Underlying COPD and remote Hx of L lung Ca and bladder Ca. She is feeling much better. Breathing is better and nausea is better. Constitutional Weakness, Malaise. Respiratory Cough, SOB w/exertion, Pleuritic Pain. Cardiovascular Light-headedness. Denies: Palpitations, Orthopnea, PND, Edema. Gastrointestinal Nausea. Musculoskeletal Back Pain. Skin Denies: Rash, Lesions, Jaundice. Neurological Weakness, Incoordination, Confusion (these are all improving). Physical Exam Vital Signs / I&Os Vital Signs Date Time Temp Pulse Resp B/P Pulse O2 O2 Flow FiO2 Ox Delivery Rate 07/26 1630 Nasal 2.0 Cannula 07/26 1403 98.1 72 22 136/64 100 Nasal 2.0 Cannula 07/26 1003 97.9 81 24 138/68 100 Nasal 2.0 Cannula 07/26 0830 Nasal 2.0 Cannula 07/26 0800 2.0 07/26 0629 97.2 105 32 159/86 90 Room Air 0.0 07/26 0433 97.5 79 20 136/61 96 Room Air 07/26 0030 Room Air 07/26 0012 97.7 79 18 130/58 96 Room Air General Appearance Alert, Oriented X3, Cooperative, No acute distress, frail appearing, weak voice HEENT Normal exam Lungs Clear to auscultation, decreased breath sounds at bases [place]. L base, no wheezin. A few scatered rhonchi Cardiovascular Regular rate and rhythm, Normal S1 and S2, 1-2/6 SM LSB Abdomen Soft, No tenderness, No guarding, ureterostomy r mid abd. Neurological Normal exam, Normal gait, Normal tone, Sensation intact, Cranial nerves intact, No lateralizing signs, weak voice. Psych/Mental Status Mental status normal, Mood normal Assessment and Plan Problem List 1. Pneumonia Plan improving, continue cefriaxone and azithromycin 2. COPD (chronic obstructive pulmonary disease) Plan Improving. Continue nebulizers. 3. Essential hypertension Plan BP stable, will add usual oral meds. 4. Hyponatremia Plan Improving. Continue to monitor. Avoid diuretics at present time. 5. Lumbar compression fracture Plan continue oxycodone 5 mg tid for pain. E&M Codes Rounding: Inpt-Moderate/[id number]
[2016-07-27] VITALS (8 sets, daily range): BP systolic 119–142; BP diastolic 48–76
--- NOTE | 2016-07-27 13:34 | Progress Note ---
Subjective General 71 year old female with history of COPD, Essential Hypertension, Coronary Artery Disease, Lung Cancer, and Tobacco Use Disorder. Admitted with cough, sob and nausea x several days. Pt was seen recently by her PCP as an outpatient and tyreated with Levaquin without any improvement. Now feeling somewhat improved though still very weak. Tolerating po and tolerating up in chair. Denies nausea. Still coughing and a bit sob. On O2. Physical Exam Vital Signs / I&Os Vital Signs Date Time Temp Pulse Resp B/P Pulse O2 O2 Flow FiO2 Ox Delivery Rate 07/27 1028 98.1 71 18 125/63 100 Nasal 2.0 Cannula 07/27 0953 Nasal 2.0 Cannula 07/27 0900 65 07/27 0632 98.4 18 18 142/65 98 Nasal 2.0 Cannula 07/27 0357 97.9 68 16 139/69 100 Nasal 2.0 Cannula 07/27 0107 97.9 72 22 134/64 99 Nasal 2.0 Cannula 07/26 2350 Nasal 2.0 Cannula 07/26 2059 2.0 07/268 98.1 76 20 146/68 100 Nasal 2.0 Cannula 07/26 1630 Nasal 2.0 Cannula 07/26 1403 98.1 72 22 136/64 100 Nasal 2.0 Cannula I&O 07/26 0800 07/26 1600 07/27 0000 Intake Total 076 191 7345 Output Total 800 400 700 Balance -397 536 988 General Appearance Alert, Oriented X3, Cooperative Lungs Bilateral rhonchi. Cardiovascular Regular rate and rhythm Abdomen Normal bowel sounds, Soft, No tenderness Extremities No edema Skin No Rashes LAB Results Laboratory Tests 07/27 0555 Chemistry Plasma Sodium (136 - 145 mmol/L) 138 Plasma Potassium (3.5 - 5.1 mmol/L) 4.5 Plasma Chloride (98 - 107 mmol/L) 105 CO2 (Enzymatic) (21 - 32 mmol/L) 26 BUN (7 - 18 mg/dL) 4 Creatinine (0.6 - 1.3 mg/dL) 0.5 Est GFR ( Amer) (mL/min) >60 Est GFR (Non-Af Amer) (mL/min) >60 Glucose (70 - 110 mg/dL) 91 Plasma Calcium (8.5 - 10.1 mg/dL) 8.0 Plasma Magnesium (1.8 - 2.4 mg/dL) 1.6 Hematology WBC (4.5 - 11.5 K/uL) 6.5 RBC (4.00 - 5.20 M/uL) 3.24 Hgb (12.0 - 16.0 gm/dL) 10.6 Hct (36.0 - 46.0 %) 31.9 MCV (80 - 100 fL) 98 MCH (26 - 34 pg) 33 RDW (11.6 - 14.8 %) 12.9 Neut % (Auto) (50 - 75 %) 67.8 Lymph % (Auto) (25 - 40 %) 10.3 [place] % (Auto) (3 - 14 %) 15.7 Eos % (Auto) (0 - 4 %) 5.8 Baso % (Auto) (0 - 2 %) 0.4 Plt Count, EDTA (150 - 400 K/uL) 480 PUBS MCHC (31 - 37 g/dL) 33 Assessment and Plan Problem List 1. Hypomagnesemia Status Acute Onset Date 03/29/15 Plan Will supplement IV magnesium 2. COPD (chronic obstructive pulmonary disease) Plan Improving on treatment. 3. Pneumonia Plan Improving on antibiotics.
[2016-07-28 02:03] VITALS: BP 117/61
[2016-07-28 06:23] VITALS: BP 140/69
[2016-07-28 10:31] VITALS: BP 150/81
[2016-07-28] MEDS ORDERED: CEFTIN500 MG PO (13:40)
[2016-07-28] MEDS ORDERED: NICODERM C14 MG/24 H TOP (13:41)
--- NOTE | 2016-07-28 13:43 | Provider's Discharge Care Plan ---
Problem, Goal, Plan Problem List 1. Tobacco use disorder Goals: Improve disease control, Improve function, Improved health/wellness, Prevent disease progress Instructions: Follow up as directed, Take meds as directed, Stop smoking 2. COPD (chronic obstructive pulmonary disease) Goals: Improve disease control, Improve function, Improved health/wellness, Prevent disease progress Instructions: Follow up as directed, Take meds as directed, Stop smoking 3. Pneumonia Goals: Improve disease control, Improve function, Improved health/wellness, Prevent disease progress Instructions: Follow up as directed, Take meds as directed, Stop smoking
--- NOTE | 2016-07-28 13:47 | Discharge Summary ---
Discharge Summary Report Admit Date 07/26/16 Discharge Date 07/28/16 Admission Diagnosis 1. Pneumonia 2. Exacerbation of COPD 3. Hypertension 4. Coronary disease 5. Hyponatremia 6. Tobacco use disorder/nicotine dependence-smoking Discharge Diagnosis 1. Pneumonia 2. Exacerbation of COPD 3. Hypertension 4. Coronary disease 5. Hyponatremia 6. Tobacco use disorder/nicotine dependence-smoking 7. Anemia 8. Hypomagnesemia Brief History Please see admission history and physical and ER visit note regarding indications for admission. Hospital Course The following problems and their management were noted during the patient's hospitalization: 1. Pneumonia The patient was admitted with findings of pneumonia. Admission chest showed small left basilar infiltrate. The patient was treated with IV followed by by mouth antimicrobials and discharged on cefuroxime 500 mg by mouth twice a day. Follow-up with PCP in 3-5 days per discharge instructions. Patient afebrile with normal white count the day of discharge. 2. Exacerbation of COPD Patient presented with findings of exacerbation of COPD. Symptoms are much improved at the time of discharge. She was discharged combination therapy of Advair Diskus 250/50, albuterol HFA 2 inhalations every 4 hours when necessary shortness of breath. She required no supplemental oxygen. She will follow-up with PCP in 3-5 days. 3. Hypertension Well-controlled. Patient discharged on Coreg 3.125 mg by mouth twice a day. Low-salt diet. Outpatient follow up with PCP as noted above 4. Coronary disease Stable. No further evaluation. Outpatient follow-up with PCP. 5. Hyponatremia The patient with history of hyponatremia. This was normal at the time of discharge. Outpatient follow-up with PCP. 6. Tobacco use disorder/nicotine dependence-smoking Patient has a history of tobacco use disorder/nicotine dependence-smoking. She underwent smoking cessation education. NicoDerm patch on discharge. Patient increasing falls smoking abstinence program post discharge 7. Anemia Patient with findings of mild anemia. This was stable to slightly improved. H& H on discharge was 10.8/33.2. Outpatient follow-up with PCP for reevaluation in 3-5 days. 8. Hypomagnesemia The patient had findings of hypomagnesemia. She was treated with Slow-Mag one tablet by mouth twice a day at discharge. Outpatient follow up with PCP. General Appearance Alert, Oriented X3, Cooperative, No acute distress Lungs Decreased air movement bilaterally. Scattered rhonchi Cardiovascular Regular Rate, Normal S1, Normal S2 Abdomen Normal bowel sounds, Soft, No tenderness Neurological Strength at 5/5 X4 ext, Cranial nerves 3-12 NL Psych/Mental Status Mental status NL, Mood NL Lab/Imaging Laboratory Tests 07/28 0735 Chemistry Plasma Sodium (136 - 145 mmol/L) 136 Plasma Potassium (3.5 - 5.1 mmol/L) 3.9 Plasma Chloride (98 - 107 mmol/L) 104 CO2 (Enzymatic) (21 - 32 mmol/L) 25 BUN (7 - 18 mg/dL) 4 Creatinine (0.6 - 1.3 mg/dL) 0.5 Est GFR ( Amer) (mL/min) >60 Est GFR (Non-Af Amer) (mL/min) >60 Glucose (70 - 110 mg/dL) 93 Plasma Calcium (8.5 - 10.1 mg/dL) 7.9 Plasma Magnesium (1.8 - 2.4 mg/dL) 1.7 Total Bilirubin (0.0 - 1.0 mg/dL) 0.1 AST (15 - 37 U/L) 15 ALT (12 - 78 U/L) 21 Alkaline Phosphatase (46 - 116 U/L) 54 Total Protein (6.4 - 8.2 g/dL) 5.6 Albumin (3.3 - 5.0 g/dL) 2.5 Hematology WBC (4.5 - 11.5 K/uL) 8.4 RBC (4.00 - 5.20 M/uL) 3.34 Hgb (12.0 - 16.0 gm/dL) 10.8 Hct (36.0 - 46.0 %) 33.2 MCV (80 - 100 fL) 100 MCH (26 - 34 pg) 32 RDW (11.6 - 14.8 %) 13.2 Neut % (Auto) (50 - 75 %) 73.5 Lymph % (Auto) (25 - 40 %) 8.3 [place] % (Auto) (3 - 14 %) 11.7 Eos % (Auto) (0 - 4 %) 6.1 Baso % (Auto) (0 - 2 %) 0.4 Plt Count, EDTA (150 - 400 K/uL) 493 PUBS MCHC (31 - 37 g/dL) 32 Discharge Instructions/Meds For other recommendations regarding discharge diet, activity, followup, and discharge medications please see the patient's discharge instructions. Discharge condition: Fair, improved Greater than 30 min. was spent in the patient's discharge preparation including discharge interview and physical examination, progress note, discharge instructions, and discharge summary The patient was interviewed and examined on the day of discharge. E&M Codes Discharge: Inpt >30 min spent/[id number]
--- NOTE | 2016-08-02 21:45 | ED MAR SUMMARY ---
..... Medication Administration Record [facility] [address] [place] [address] Patient: ELSY FIELDS Visit ID: [id number] 71y, F Weight: 43.0 kg Height/Length: 61 in BMI: 17.9 ALLERGIES: Bee Venom, CONTRAST DYE, Iodine, No Known Drug Allergy Start 19:51 07/25/2016 Kavon Martinez R.NHeidy, Stop 20:15 07/25/2016 Kavon Martinez R.N. Medication Administered: IV NS (SALINE), Dose: IV Fluids, Bolus: 500 mL wide open, Dispensed: 500 mL bag, Site: #1 wrist. Medication Ordered: IV NS : initial bolus 500 mL (1000 mL/hr), then none - for X1 (NOW). Start 20:38 07/25/2016 Kavon Martinez R.N., Stop 20:58 07/25/2016 Kavon Martinez R.N. Medication Administered: CEFTRIAXONE [IVPB], Dose: 2 gm IVPB over 20 minute(s), Rate: 150 mL/hr, Dispensed: 50 mL bag, Site: #1 wrist. Medication Ordered: Ceftriaxone IV 2 gm/50mL (NOW). Start 21:00 07/25/2016 Kavon Martinez R.N., Stop 22:06 07/25/2016 Tori Santamaria, Medication Administered: AZITHROMYCIN [IVPB], Dose: 500 mg IVPB, Rate: 255 mL/hr, Dispensed: 250 mL bag, Site: #1 wrist. Medication Ordered: Azithromycin IV 500 mg/250 mL (NOW). Given 21:17 07/25/2016 Kavon Martinez R.NeHidy Medication Administered: ZOFRAN [IVP] (ONDANSETRON HCL), Dose: 4 mg IVP over 2 minute(s), Site: #1 wrist. Medication Ordered: Zofran IV 4 mg (NOW).
--- NOTE | 2016-08-02 21:45 | ED MAR SUMMARY ---
..... Medication Administration Record [facility] [address] [place] [address] Patient: ELSY FIELDS Visit ID: [id number] 71y, F Weight: 43.0 kg Height/Length: 61 in BMI: 17.9 ALLERGIES: Bee Venom, CONTRAST DYE, Iodine, No Known Drug Allergy Start 19:51 07/25/2016 Kavon Martinez R.NHeidy, Stop 20:15 07/25/2016 Kavon Martinez R.N. Medication Administered: IV NS (SALINE), Dose: IV Fluids, Bolus: 500 mL wide open, Dispensed: 500 mL bag, Site: #1 wrist. Medication Ordered: IV NS : initial bolus 500 mL (1000 mL/hr), then none - for X1 (NOW). Start 20:38 07/25/2016 Kavon Martinez R.N., Stop 20:58 07/25/2016 Kavon Martinez R.N. Medication Administered: CEFTRIAXONE [IVPB], Dose: 2 gm IVPB over 20 minute(s), Rate: 150 mL/hr, Dispensed: 50 mL bag, Site: #1 wrist. Medication Ordered: Ceftriaxone IV 2 gm/50mL (NOW). Start 21:00 07/25/2016 Kavon Martinez R.N., Stop 22:06 07/25/2016 Tori Santamaria, Medication Administered: AZITHROMYCIN [IVPB], Dose: 500 mg IVPB, Rate: 255 mL/hr, Dispensed: 250 mL bag, Site: #1 wrist. Medication Ordered: Azithromycin IV 500 mg/250 mL (NOW). Given 21:17 07/25/2016 Kavon Martinez R.NHeidy Medication Administered: ZOFRAN [IVP] (ONDANSETRON HCL), Dose: 4 mg IVP over 2 minute(s), Site: #1 wrist. Medication Ordered: Zofran IV 4 mg (NOW).
--- NOTE | 2016-08-02 21:45 | ED MED RECONCILIATION SUMMARY ---
Patient: ELSY FIELDS Medication Reconciliation Report [facility] VisitID: [id number] [address] [place] [address] 71y, F Registration Date/Time: 07/25/2016 Weight: 43.0 kg Height/Length: 61 in. BMI: 17.9 ALLERGIES: Bee Venom, CONTRAST DYE, Iodine, No Known Drug Allergy The patient's Home Medications are listed below: THE FOLLOWING MEDICATIONS NEED TO BE RECONCILED: Advair Diskus Inhalation Albuterol Sulfate HFA Inhalation Albuterol-Ipratropium Inhalation Amoxicillin Oral Bactrim DS Oral 1 tablet, 2x a day, Started Today Calcitonin ([place]) Nasal Carvedilol Phosphate ER Oral 3.125 mg , bid Epinephrine Injection Ferrous Sulfate Oral Levofloxacin Oral Magnesium Oral OxyCODONE HCl Oral (5 mg) 1/2 tablet- 1 tablet, 3x a day TiZANidine HCl Oral (2 mg) 1 tablet, 2x a day Vitamins/Minerals Oral The source(s) of the original Home Medication information: Not obtained. The following Medications were given to the patient in the Emergency Department: IV NS IV Fluids bolus 500 mL wide open, administered: 07/25/2016 7:51:00 PM Ceftriaxone [IVPB] IVPB bolus 0, then 2 gm 150 mL/hr, administered: 07/25/2016 8:38:00 PM Azithromycin [IVPB] IVPB bolus 0, then 500 mg 255 mL/hr, administered: 07/25/2016 9:00:00 PM Zofran [IVP] IVP 4 mg, administered: 07/25/2016 9:17:00 PM The following Medications were prescribed to the patient: None.
--- NOTE | 2016-08-02 21:45 | ED MED RECONCILIATION SUMMARY ---
Patient: ELSY FIELDS Medication Reconciliation Report [facility] VisitID: [id number] [address] [place] [address] 71y, F Registration Date/Time: 07/25/2016 Weight: 43.0 kg Height/Length: 61 in. BMI: 17.9 ALLERGIES: Bee Venom, CONTRAST DYE, Iodine, No Known Drug Allergy The patient's Home Medications are listed below: THE FOLLOWING MEDICATIONS NEED TO BE RECONCILED: Advair Diskus Inhalation Albuterol Sulfate HFA Inhalation Albuterol-Ipratropium Inhalation Amoxicillin Oral Bactrim DS Oral 1 tablet, 2x a day, Started Today Calcitonin ([place]) Nasal Carvedilol Phosphate ER Oral 3.125 mg , bid Epinephrine Injection Ferrous Sulfate Oral Levofloxacin Oral Magnesium Oral OxyCODONE HCl Oral (5 mg) 1/2 tablet- 1 tablet, 3x a day TiZANidine HCl Oral (2 mg) 1 tablet, 2x a day Vitamins/Minerals Oral The source(s) of the original Home Medication information: Not obtained. The following Medications were given to the patient in the Emergency Department: IV NS IV Fluids bolus 500 mL wide open, administered: 07/25/2016 7:51:00 PM Ceftriaxone [IVPB] IVPB bolus 0, then 2 gm 150 mL/hr, administered: 07/25/2016 8:38:00 PM Azithromycin [IVPB] IVPB bolus 0, then 500 mg 255 mL/hr, administered: 07/25/2016 9:00:00 PM Zofran [IVP] IVP 4 mg, administered: 07/25/2016 9:17:00 PM The following Medications were prescribed to the patient: None.
== END 2016-07-28 16:10 | disposition home or self-care (01) | DRG 190 ==
LOC: ED SRH 18:48 → TRANS SRH 20:34 → ACUTE2 SRH 21:37
PROVIDERS: ADMIT Student in an Organized Health Care Education/Training Program
DX: J44.0 Chronic obstructive pulmonary disease with (acute) lower respiratory infection (principal); J18.9 Pneumonia, unspecified organism; E87.1 Hypo-osmolality and hyponatremia; N39.0 Urinary tract infection, site not specified; J44.1 Chronic obstructive pulmonary disease with (acute) exacerbation; E83.42 Hypomagnesemia; D64.9 Anemia, unspecified; I10 Essential (primary) hypertension; F17.210 Nicotine dependence, cigarettes, uncomplicated

== ENCOUNTER 2016-09-19 11:27 | Emergency (ER) | payer OTHER ==
[~2016-09-19 11:27] MED LIST changes: +CEFTIN500 MG PO; +NICODERM C14 MG/24 H TOP; +OXAYDO5 MG PO
--- NOTE | 2016-09-19 13:01 | ED ORDER SUMMARY ---
..... Patient: ELSY FIELDS OrderSheet [facility] VisitID: [id number] [address] [place] [address] 71y, F Registration Date/Time: 09/19/2016 ORDER SHEET Weight: 43.5 kg (stated) Allergies: Bee Venom, CONTRAST DYE, Iodine, No Known Drug Allergy GENERAL ORDERS: UA-Culture if indicated Urgent (11:51 09/19/2016 Christopher OLEARY) (Ack 11:53 Hawk) (11:53 DMazacariasarka R.N.) CBC w Diff Urgent (12:00 09/19/2016 Christopher OLEARY) (Ack 12:02 Hawk) (12:58 DMaziarka R.N.) CMP Urgent (12:00 09/19/2016 Christopher OLEARY) (Ack 12:02 Hawk) (13:17 DMaziarka R.N.) MEDICATION ORDERS: IV FLUIDS: IV NS : initial bolus 500 mL (1000 mL/hr), then 150 mL/hr for 4h (NOW); Routine (12:52 09/19/2016 Christopher OLEARY) (Ack 12:58 DMaziarka R.N.) (13:19 DMaziarka R.N.) Rocephin IV 2 gm/50mL (NOW) (12:52 09/19/2016 Christopher OLEARY) (Ack 12:58 Ebenezerziarka R.N.) (13:20 DMaziarka R.N.) ORDER SHEET NOTES: [Electronically signed by Bernard Tineo MD (13:48 09/19/2016)] [Electronically signed by Chantelle Heard R.N. (15:28 09/19/2016)] [Electronically locked/signed by Chantelle Heard R.N. (15:28 09/19/2016)]
--- NOTE | 2016-09-19 13:01 | ED CLINICAL REPORT ---
Clinical Report - Physicians/Mid Levels [facility] [address] [place] [address] 09/19/2016 11:28 Patient: ELSY FIELDS Time Seen: 11:51 Sep 19 2016. Arrived- By private vehicle. Historian- patient. CPT: ER phys charges level 4 (#[id number]). HISTORY OF PRESENT ILLNESS Chief Complaint: DYSURIA. RIGHT FLANK PAIN. 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 and still present (worse). The symptoms are described as moderate. Modifying factors. Not worsened by anything. Not relieved by anything. The patient has had abdominal pain. She has had moderate, constant right-sided flank pain. No vaginal discharge, pain with urination, urinary frequency or urgency of urination. The patient has had hematuria. Similar symptoms previously: As bad. Diagnosis: (pyelonephritis). Recent medical care: Not recently seen/assessed. REVIEW OF SYSTEMS No nausea, vomiting, diarrhea, headache or fever. No chills, sore throat, cough, difficulty breathing or chest pain. No skin rash, enlarged lymph nodes or joint pain. All systems otherwise negative, except as recorded above. PAST HISTORY See nurses notes. ( Pyelonephritis. Hypertension. UTI - Urinary Tract Infection. COPD - Chronic Obstructive Pulmonary Disease. Bronchitis. Hernia. 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 Myocardial Infarction. Asthma. --11:42 Chantelle Heard RDamaris. ADDITIONAL SURGERIES: Appendectomy. . Hysterectomy. Oophorectomy. Salpingectomy. Tonsillectomy & Adenoidectomy. Ureterostomy.). Medications: Advair Diskus Inhalation. Albuterol Sulfate HFA Inhalation. Albuterol-Ipratropium Inhalation. Calcitonin ([place]) Nasal. Carvedilol Phosphate ER Oral 3.125 mg , bid. Epinephrine Injection, as needed. Ferrous Sulfate Oral. OxyCODONE HCl Oral (Tablet 5 mg) 1/2 tablet- 1 tablet, 3x a day as needed. TiZANidine HCl Oral (Tablet 2 mg) 1 tablet, 2x a day. Vitamins/Minerals Oral. Allergies: Bee Venom. CONTRAST DYE. Iodine. No Known Drug Allergy. SOCIAL HISTORY Heavy tobacco smoker (cigarette)- less than 1 pack per day. Heavy alcohol use. No drug use. ADDITIONAL NOTES The nursing notes have been reviewed. PHYSICAL EXAM Vital Signs: 09/19/2016 11:44 BP: 142/75. HR: 78. RR: 16. O2 saturation: 93%. Temp: 98.2 F. Appearance: Alert. No acute distress. HEENT: Normal external inspection. ENT: Pharynx normal. Neck: Neck supple. CVS: Heart sounds normal. Respiratory: No respiratory distress. Breath sounds normal. Chest nontender. Abdomen: Soft and nontender. Bowel sounds normal. (ureterostomy site intact. no palpation tenderness.). Back: Moderate CVA tenderness on the right. Skin: Skin warm. Normal skin color. Extremities: Extremities nontender. No lower extremity edema. Neuro: Oriented X 3. Mood/affect normal. No motor deficit. No sensory deficit. LABS, X-RAYS, AND EKG Laboratory Tests: UA-Culture if indicated: (JULIO C: 09/19/2016 11:53) ( [place] 09/19/2016 12:40) Final results Test Result Flag Units (Reference) URINE COLOR YELLOW URINE APPEARANCE CLEAR URINE GLUCOSE NEGATIVE (NEGATIVE) URINE BILIRUBIN NEGATIVE (NEGATIVE) URINE KETONE NEGATIVE (NEGATIVE) URINE SPECIFIC GRAVITY 1.010 (1.010-1.030) URINE PH 7.0 (5.0-8.0) URINE PROTEIN TRACE (NEGATIVE) URINE UROBILINOGEN 0.2 EU/dL (0.2-1.0) URINE NITRITE NEGATIVE (NEGATIVE) URINE BLOOD 3+ (NEGATIVE) URINE LEUK ESTERASE POSITIVE (NEGATIVE) URINE RBC 50-75 rbc/hpf (0-1) URINE WBC 25-50 wbc/hpf (0-1) URINE EPITHELIAL CELLS 0-1 EPI/hpf (0-5) URINE BACTERIA MODERATE (2+ TO 3+) (NONE SEEN) URINE COMMENT CULTURE INDICATED URINE CULTURES ARE SET-UP BASED ON THE FOLLOWING CRITERIA:POSITIVE NITRITEPOSITIVE LEUKOCYTE ESTERASEGREATER THAN 10 WHITE BLOOD CELLSMODERATE (2+) OR GREATER BACTERIA CBC w Diff: (JULIO C: 09/19/2016 12:14) ( Mscvd 09/19/2016 12:24) Final results Test Result Flag Units (Reference) WHITE BLOOD COUNT 7.9 K/uL (4.5-11.5) RED BLOOD COUNT 4.19 M/uL (4.00-5.20) HEMOGLOBIN 13.5 gm/dL (12.0-16.0) HEMATOCRIT 39.5 % (36.0-46.0) MEAN CELL VOLUME 94 fL (80-100) MEAN CORPUSCULAR HGB 32 pg (26-34) MEAN CORPUSCULAR HGB CONC 34 g/dL (31-37) RED CELL DISTRIBUTION WIDTH 13.7 % (11.6-14.8) PLATELET COUNT 437 H K/uL (150-400) NEUTROPHIL % 74.0 % (50-75) LYMPH % 9.5 L % (25-40) MONO % 8.6 % (3-14) EOSINOPHIL % 7.9 H % (0-4) BASOPHIL % 0 % (0-2) CMP: (JULIO C: 09/19/2016 12:14) ( MsgRcvd 09/19/2016 12:47) Final results Test Result Flag Units (Reference) GLUCOSE 124 H mg/dL (70-110) BUN 10 mg/dL (7-18) CREATININE 0.8 mg/dL (0.6-1.3) Estimated GFR >60 mL/min Estimated GFR- >60 mL/min Note: Persistent reduction over 3 months in eGFR<60 mL/min/1.73 m2 defines CKD. Patients with eGFR values>=60 mL/min/1.73 m2 may also have CKD if evidence ofpersistent proteinuria. Additional information may be foundat www.kidney.org. SODIUM 134 L mmol/L (136-145) POTASSIUM 4.9 mmol/L (3.5-5.1) CHLORIDE 98 mmol/L (98-107) CARBON DIOXIDE 28 mmol/L (21-32) CALCIUM 9.6 mg/dL (8.5-10.1) TOTAL PROTEIN 7.3 g/dL (6.4-8.2) ALBUMIN 4.1 g/dL (3.3-5.0) BILIRUBIN, TOTAL 0.6 mg/dL (0.0-1.0) ALKALINE PHOSPHATASE 75 U/L (46-116) AST (SGOT) 23 U/L (15-37) ALT (SGPT) 25 U/L (12-78) . PROGRESS AND PROCEDURES Course of Care: IV NS Rocephin 2g IV Patient is stable. Patient/family counseled. Disposition: Discharged. Condition: stable. CLINICAL IMPRESSION Early right sided pyelonephritis. INSTRUCTIONS Drink plenty of fluids. Warnings: Further evaluation is necessary. GENERAL WARNINGS: Return or contact your physician immediately if your condition worsens or changes unexpectedly, if not improving as expected, or if other problems arise. Your Current Medications: CONTINUE TAKING THE FOLLOWING MEDICATIONS: Advair Diskus Inhalation. Albuterol Sulfate HFA Inhalation. Albuterol-Ipratropium Inhalation. Calcitonin ([place]) Nasal. Carvedilol Phosphate ER Oral : 3.125 mg bid. Epinephrine Injection : prn. Ferrous Sulfate Oral. OxyCODONE HCl Oral : Tablet 5 mg, 1/2 tablet- 1 tablet 3x a day, prn. TiZANidine HCl Oral : Tablet 2 mg, 1 tablet 2x a day. Vitamins/Minerals Oral. Prescription Medications: Ceftin 500 mg: take 1 tab orally every 12 hours for 10 days. No refills. Substitution is permissible. Follow-up: Follow up with your doctor in one week. Call for an appointment. Understanding of the discharge instructions verbalized by patient. Discharge instructions reviewed (Daughter). (Electronically signed by Bernard Tineo MD 09/19/2016 13:48)
--- NOTE | 2016-09-19 13:01 | ED NURSING NOTES ---
Clinical Report - Nurses [facility] [address] [place] [address] 09/19/2016 11:28 Patient: ELSY FIELDS TRIAGE Triage time 11:38. Acuity: LEVEL 3. Chief Complaint: BLOOD IN URINE. Alert. --11:43 Chantelle Heard R.N. 11:44 09/19/16. BP: 142/75. HR: 78. RR: 16. O2 saturation: 93%. Temp: 98.2 F. Pain level now 0/10. --11:46 Chantelle Heard R.N. Weight: 43.5 kg stated. Height/Length: 61 inches Per Patient. BMI: 18.1. --11:42 Chantelle Heard R.N. Medications Advair Diskus Inhalation. Albuterol Sulfate HFA Inhalation. Albuterol-Ipratropium Inhalation. Calcitonin ([place]) Nasal. Carvedilol Phosphate ER Oral 3.125 mg , bid. Epinephrine Injection, as needed. Ferrous Sulfate Oral. OxyCODONE HCl Oral (Tablet 5 mg) 1/2 tablet- 1 tablet, 3x a day as needed. TiZANidine HCl Oral (Tablet 2 mg) 1 tablet, 2x a day. Vitamins/Minerals Oral. --11:42 Chantelle Heard R.N. Allergies Bee Venom. --11:42 Chantelle Heard R.N. CONTRAST DYE. Iodine. No Known Drug Allergy. --11:42 Chantelle Heard R.N. History Arrived by private vehicle, and accompanied by family. Primary physician (Donaldo). This started yesterday. ( Pt has a urostomy tube). 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 SOCIAL HX: Current every day heavy tobacco smoker (cigarette)- less than 1 pack per day (patch). Alcohol use; consumes beer occasionally. No drug use. --11:43 Chantelle Heard R.N. SOCIAL HX: Heavy alcohol use; consumes liquor. --11:54 Chantelle Heard R.N. PROBLEMS: Pyelonephritis. Hypertension. UTI - Urinary Tract Infection. COPD - Chronic Obstructive Pulmonary Disease. Bronchitis. Hernia. 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 Myocardial Infarction. Asthma. --11:42 Chantelle Heard R.N. ADDITIONAL SURGERIES: Appendectomy. . Hysterectomy. Oophorectomy. Salpingectomy. Tonsillectomy & Adenoidectomy. Ureterostomy. --11:42 Chantelle Heard R.N. PHYSICAL ASSESSMENT Ambulatory to room. Patient gowned. GENERAL / NEURO / PSYCH: Alert. Oriented X 4. RESPIRATORY: Respirations not labored. --11:47 Chantelle Heard R.N. NURSING PROGRESS NOTES Patient gowned. Patient identifiers checked. Call light placed in reach. Patient ready for evaluation- chart flagged and ED physician notified. --11:47 Chantelle Heard R.N. Checked patient name and birthdate: patient confirmed. Blood samples drawn from the right antecubital space with syringe and 23g butterfly by tech per protocol ; labeled in presence of the patient and sent to lab: rainbow set: cardiac enzymes (1st set). --12:21 Zechariah Mortensen 13:18 09/19/2016 Site #1 started via IV in the right with an 18g angiocath using 1% intra-dermal lidocaine; one attempt. Saline lock flushed with saline. --13:18 Chantelle Heard R.N. 13:19 09/19/2016 Started bag #1 1000 mL IV Fluids IV NS (Saline); at 500 mL/hr over 1 hour(s) via site #1 via IV pump. Allergies verified and confirmed 5 rights. --13:19 Chantelle Heard R.N. 13:20 09/19/2016 Started 2 gm of Rocephin (CefTRIAXone Sodium) IVPB in bag #1 50 mL; at 100 mL/hr over 30 minute(s) via site #1 via IV pump. --13:20 Chantelle Heard R.N. The patient is resting quietly. --13:21 Chantelle Heard R.N. 13:41 09/19/2016 Site #1 removed upon discharge. Bandage applied. --13:41 Chantelle Heard R.N. DISPOSITION / DISCHARGE Departure time: 13:40. Condition at departure: unchanged. No learning barriers present. Discharge instructions provided and reviewed with the patient and family. Patient and family verbalized understanding. Written instructions provided in [place]. The patient was discharged home and accompanied by family. She left the Emergency Department ambulatory and via private vehicle. Family member driving. --13:40 Chantelle Heard R.N. 13:39 09/19/16. BP: 150/80. HR: 72. RR: 20. O2 saturation: 97%. Pain level now 0/10. --13:40 Chantelle Heard R.N. Locked/Released at 09/19/2016 15:28 by Chantelle Heard R.N.
--- NOTE | 2016-09-19 13:01 | ED NURSING NOTES ---
Clinical Report - Nurses [facility] [address] [place] [address] 09/19/2016 11:28 Patient: ELSY FIELDS TRIAGE Triage time 11:38. Acuity: LEVEL 3. Chief Complaint: BLOOD IN URINE. Alert. --11:43 Chantelle Heard R.N. 11:44 09/19/16. BP: 142/75. HR: 78. RR: 16. O2 saturation: 93%. Temp: 98.2 F. Pain level now 0/10. --11:46 Chantelle Heard R.N. Weight: 43.5 kg stated. Height/Length: 61 inches Per Patient. BMI: 18.1. --11:42 Chantelle Heard R.N. Medications Advair Diskus Inhalation. Albuterol Sulfate HFA Inhalation. Albuterol-Ipratropium Inhalation. Calcitonin ([place]) Nasal. Carvedilol Phosphate ER Oral 3.125 mg , bid. Epinephrine Injection, as needed. Ferrous Sulfate Oral. OxyCODONE HCl Oral (Tablet 5 mg) 1/2 tablet- 1 tablet, 3x a day as needed. TiZANidine HCl Oral (Tablet 2 mg) 1 tablet, 2x a day. Vitamins/Minerals Oral. --11:42 Chantelle Heard R.N. Allergies Bee Venom. --11:42 Chantelle Heard R.N. CONTRAST DYE. Iodine. No Known Drug Allergy. --11:42 Chantelle Heard R.N. History Arrived by private vehicle, and accompanied by family. Primary physician (Donaldo). This started yesterday. ( Pt has a urostomy tube). 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 SOCIAL HX: Current every day heavy tobacco smoker (cigarette)- less than 1 pack per day (patch). Alcohol use; consumes beer occasionally. No drug use. --11:43 Chantelle Heard R.N. SOCIAL HX: Heavy alcohol use; consumes liquor. --11:54 Chantelle Heard R.N. PROBLEMS: Pyelonephritis. Hypertension. UTI - Urinary Tract Infection. COPD - Chronic Obstructive Pulmonary Disease. Bronchitis. Hernia. 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 Myocardial Infarction. Asthma. --11:42 Chantelle Heard R.N. ADDITIONAL SURGERIES: Appendectomy. . Hysterectomy. Oophorectomy. Salpingectomy. Tonsillectomy & Adenoidectomy. Ureterostomy. --11:42 Chantelle Heard R.N. PHYSICAL ASSESSMENT Ambulatory to room. Patient gowned. GENERAL / NEURO / PSYCH: Alert. Oriented X 4. RESPIRATORY: Respirations not labored. --11:47 Chantelle Heard R.N. NURSING PROGRESS NOTES Patient gowned. Patient identifiers checked. Call light placed in reach. Patient ready for evaluation- chart flagged and ED physician notified. --11:47 Chantelle Heard R.N. Checked patient name and birthdate: patient confirmed. Blood samples drawn from the right antecubital space with syringe and 23g butterfly by tech per protocol ; labeled in presence of the patient and sent to lab: rainbow set: cardiac enzymes (1st set). --12:21 Zechariah Mortensen 13:18 09/19/2016 Site #1 started via IV in the right with an 18g angiocath using 1% intra-dermal lidocaine; one attempt. Saline lock flushed with saline. --13:18 Chantelle Heard R.N. 13:19 09/19/2016 Started bag #1 1000 mL IV Fluids IV NS (Saline); at 500 mL/hr over 1 hour(s) via site #1 via IV pump. Allergies verified and confirmed 5 rights. --13:19 Chantelle Heard R.N. 13:20 09/19/2016 Started 2 gm of Rocephin (CefTRIAXone Sodium) IVPB in bag #1 50 mL; at 100 mL/hr over 30 minute(s) via site #1 via IV pump. --13:20 Chantelle Heard R.N. The patient is resting quietly. --13:21 Chantelle Heard R.N. 13:41 09/19/2016 Site #1 removed upon discharge. Bandage applied. --13:41 Chantelle Heard R.N. DISPOSITION / DISCHARGE Departure time: 13:40. Condition at departure: unchanged. No learning barriers present. Discharge instructions provided and reviewed with the patient and family. Patient and family verbalized understanding. Written instructions provided in Nauruan. The patient was discharged home and accompanied by family. She left the Emergency Department ambulatory and via private vehicle. Family member driving. --13:40 Chantelle Heard R.N. 13:39 09/19/16. BP: 150/80. HR: 72. RR: 20. O2 saturation: 97%. Pain level now 0/10. --13:40 Chantelle Heard R.N. Locked/Released at 09/19/2016 15:28 by Chantelle Heard R.N.
--- NOTE | 2016-09-19 13:01 | ED CLINICAL REPORT ---
Clinical Report - Physicians/Mid Levels [facility] [address] [place] [address] 09/19/2016 11:28 Patient: ELSY FIELDS Time Seen: 11:51 Sep 19 2016. Arrived- By private vehicle. Historian- patient. CPT: ER phys charges level 4 (#[id number]). HISTORY OF PRESENT ILLNESS Chief Complaint: DYSURIA. RIGHT FLANK PAIN. 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 and still present (worse). The symptoms are described as moderate. Modifying factors. Not worsened by anything. Not relieved by anything. The patient has had abdominal pain. She has had moderate, constant right-sided flank pain. No vaginal discharge, pain with urination, urinary frequency or urgency of urination. The patient has had hematuria. Similar symptoms previously: As bad. Diagnosis: (pyelonephritis). Recent medical care: Not recently seen/assessed. REVIEW OF SYSTEMS No nausea, vomiting, diarrhea, headache or fever. No chills, sore throat, cough, difficulty breathing or chest pain. No skin rash, enlarged lymph nodes or joint pain. All systems otherwise negative, except as recorded above. PAST HISTORY See nurses notes. ( Pyelonephritis. Hypertension. UTI - Urinary Tract Infection. COPD - Chronic Obstructive Pulmonary Disease. Bronchitis. Hernia. 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 Myocardial Infarction. Asthma. --11:42 Chantelle Heard RDamaris. ADDITIONAL SURGERIES: Appendectomy. . Hysterectomy. Oophorectomy. Salpingectomy. Tonsillectomy & Adenoidectomy. Ureterostomy.). Medications: Advair Diskus Inhalation. Albuterol Sulfate HFA Inhalation. Albuterol-Ipratropium Inhalation. Calcitonin ([place]) Nasal. Carvedilol Phosphate ER Oral 3.125 mg , bid. Epinephrine Injection, as needed. Ferrous Sulfate Oral. OxyCODONE HCl Oral (Tablet 5 mg) 1/2 tablet- 1 tablet, 3x a day as needed. TiZANidine HCl Oral (Tablet 2 mg) 1 tablet, 2x a day. Vitamins/Minerals Oral. Allergies: Bee Venom. CONTRAST DYE. Iodine. No Known Drug Allergy. SOCIAL HISTORY Heavy tobacco smoker (cigarette)- less than 1 pack per day. Heavy alcohol use. No drug use. ADDITIONAL NOTES The nursing notes have been reviewed. PHYSICAL EXAM Vital Signs: 09/19/2016 11:44 BP: 142/75. HR: 78. RR: 16. O2 saturation: 93%. Temp: 98.2 F. Appearance: Alert. No acute distress. HEENT: Normal external inspection. ENT: Pharynx normal. Neck: Neck supple. CVS: Heart sounds normal. Respiratory: No respiratory distress. Breath sounds normal. Chest nontender. Abdomen: Soft and nontender. Bowel sounds normal. (ureterostomy site intact. no palpation tenderness.). Back: Moderate CVA tenderness on the right. Skin: Skin warm. Normal skin color. Extremities: Extremities nontender. No lower extremity edema. Neuro: Oriented X 3. Mood/affect normal. No motor deficit. No sensory deficit. LABS, X-RAYS, AND EKG Laboratory Tests: UA-Culture if indicated: (JULIO C: 09/19/2016 11:53) ( [facility] 09/19/2016 12:40) Final results Test Result Flag Units (Reference) URINE COLOR YELLOW URINE APPEARANCE CLEAR URINE GLUCOSE NEGATIVE (NEGATIVE) URINE BILIRUBIN NEGATIVE (NEGATIVE) URINE KETONE NEGATIVE (NEGATIVE) URINE SPECIFIC GRAVITY 1.010 (1.010-1.030) URINE PH 7.0 (5.0-8.0) URINE PROTEIN TRACE (NEGATIVE) URINE UROBILINOGEN 0.2 EU/dL (0.2-1.0) URINE NITRITE NEGATIVE (NEGATIVE) URINE BLOOD 3+ (NEGATIVE) URINE LEUK ESTERASE POSITIVE (NEGATIVE) URINE RBC 50-75 rbc/hpf (0-1) URINE WBC 25-50 wbc/hpf (0-1) URINE EPITHELIAL CELLS 0-1 EPI/hpf (0-5) URINE BACTERIA MODERATE (2+ TO 3+) (NONE SEEN) URINE COMMENT CULTURE INDICATED URINE CULTURES ARE SET-UP BASED ON THE FOLLOWING CRITERIA:POSITIVE NITRITEPOSITIVE LEUKOCYTE ESTERASEGREATER THAN 10 WHITE BLOOD CELLSMODERATE (2+) OR GREATER BACTERIA CBC w Diff: (JULIO C: 09/19/2016 12:14) ( [facility] 09/19/2016 12:24) Final results Test Result Flag Units (Reference) WHITE BLOOD COUNT 7.9 K/uL (4.5-11.5) RED BLOOD COUNT 4.19 M/uL (4.00-5.20) HEMOGLOBIN 13.5 gm/dL (12.0-16.0) HEMATOCRIT 39.5 % (36.0-46.0) MEAN CELL VOLUME 94 fL (80-100) MEAN CORPUSCULAR HGB 32 pg (26-34) MEAN CORPUSCULAR HGB CONC 34 g/dL (31-37) RED CELL DISTRIBUTION WIDTH 13.7 % (11.6-14.8) PLATELET COUNT 437 H K/uL (150-400) NEUTROPHIL % 74.0 % (50-75) LYMPH % 9.5 L % (25-40) MONO % 8.6 % (3-14) EOSINOPHIL % 7.9 H % (0-4) BASOPHIL % 0 % (0-2) CMP: (JULIO C: 09/19/2016 12:14) ( MsgRcvd 09/19/2016 12:47) Final results Test Result Flag Units (Reference) GLUCOSE 124 H mg/dL (70-110) BUN 10 mg/dL (7-18) CREATININE 0.8 mg/dL (0.6-1.3) Estimated GFR >60 mL/min Estimated GFR- >60 mL/min Note: Persistent reduction over 3 months in eGFR<60 mL/min/1.73 m2 defines CKD. Patients with eGFR values>=60 mL/min/1.73 m2 may also have CKD if evidence ofpersistent proteinuria. Additional information may be foundat www.kidney.org. SODIUM 134 L mmol/L (136-145) POTASSIUM 4.9 mmol/L (3.5-5.1) CHLORIDE 98 mmol/L (98-107) CARBON DIOXIDE 28 mmol/L (21-32) CALCIUM 9.6 mg/dL (8.5-10.1) TOTAL PROTEIN 7.3 g/dL (6.4-8.2) ALBUMIN 4.1 g/dL (3.3-5.0) BILIRUBIN, TOTAL 0.6 mg/dL (0.0-1.0) ALKALINE PHOSPHATASE 75 U/L (46-116) AST (SGOT) 23 U/L (15-37) ALT (SGPT) 25 U/L (12-78) . PROGRESS AND PROCEDURES Course of Care: IV NS Rocephin 2g IV Patient is stable. Patient/family counseled. Disposition: Discharged. Condition: stable. CLINICAL IMPRESSION Early right sided pyelonephritis. INSTRUCTIONS Drink plenty of fluids. Warnings: Further evaluation is necessary. GENERAL WARNINGS: Return or contact your physician immediately if your condition worsens or changes unexpectedly, if not improving as expected, or if other problems arise. Your Current Medications: CONTINUE TAKING THE FOLLOWING MEDICATIONS: Advair Diskus Inhalation. Albuterol Sulfate HFA Inhalation. Albuterol-Ipratropium Inhalation. Calcitonin ([place]) Nasal. Carvedilol Phosphate ER Oral : 3.125 mg bid. Epinephrine Injection : prn. Ferrous Sulfate Oral. OxyCODONE HCl Oral : Tablet 5 mg, 1/2 tablet- 1 tablet 3x a day, prn. TiZANidine HCl Oral : Tablet 2 mg, 1 tablet 2x a day. Vitamins/Minerals Oral. Prescription Medications: Ceftin 500 mg: take 1 tab orally every 12 hours for 10 days. No refills. Substitution is permissible. Follow-up: Follow up with your doctor in one week. Call for an appointment. Understanding of the discharge instructions verbalized by patient. Discharge instructions reviewed (Daughter). (Electronically signed by Bernard Tineo MD 09/19/2016 13:48)
--- NOTE | 2016-09-19 13:01 | ED ORDER SUMMARY ---
..... Patient: ELSY FIELDS OrderSheet [facility] VisitID: [id number] [address] [place] [address] 71y, F Registration Date/Time: 09/19/2016 ORDER SHEET Weight: 43.5 kg (stated) Allergies: Bee Venom, CONTRAST DYE, Iodine, No Known Drug Allergy GENERAL ORDERS: UA-Culture if indicated Urgent (11:51 09/19/2016 Christopher OLEARY) (Ack 11:53 Hawk) (11:53 DMazacariasarka R.N.) CBC w Diff Urgent (12:00 09/19/2016 Christopher OLEARY) (Ack 12:02 Hawk) (12:58 DMaziarka R.N.) CMP Urgent (12:00 09/19/2016 Christopher OLEARY) (Ack 12:02 Hawk) (13:17 DMaziarka R.N.) MEDICATION ORDERS: IV FLUIDS: IV NS : initial bolus 500 mL (1000 mL/hr), then 150 mL/hr for 4h (NOW); Routine (12:52 09/19/2016 Christopher OLEARY) (Ack 12:58 DMaziarka R.N.) (13:19 DMaziarka R.N.) Rocephin IV 2 gm/50mL (NOW) (12:52 09/19/2016 Christopher OLEARY) (Ack 12:58 Ebenezerziarka R.N.) (13:20 DMaziarka R.N.) ORDER SHEET NOTES: [Electronically signed by Bernard Tineo MD (13:48 09/19/2016)] [Electronically signed by Chantelle Heard R.N. (15:28 09/19/2016)] [Electronically locked/signed by Chantelle Heard R.N. (15:28 09/19/2016)]
--- NOTE | 2016-09-19 15:29 | ED DISCHARGE INSTRUCTIONS ---
Patient: ELSY FIELDS General Instructions [facility] VisitID: [id number] [address] [place] [address] 71y, F Registration Date/Time: 09/19/2016 Early right sided pyelonephritis. INSTRUCTIONS Drink plenty of fluids. Warnings: Further evaluation is necessary. GENERAL WARNINGS: Return or contact your physician immediately if your condition worsens or changes unexpectedly, if not improving as expected, or if other problems arise. Your Current Medications: CONTINUE TAKING THE FOLLOWING MEDICATIONS: Advair Diskus Inhalation. Albuterol Sulfate HFA Inhalation. Albuterol-Ipratropium Inhalation. Calcitonin ([place]) Nasal. Carvedilol Phosphate ER Oral : 3.125 mg bid. Epinephrine Injection : prn. Ferrous Sulfate Oral. OxyCODONE HCl Oral : Tablet 5 mg, 1/2 tablet- 1 tablet 3x a day, prn. TiZANidine HCl Oral : Tablet 2 mg, 1 tablet 2x a day. Vitamins/Minerals Oral. Prescription Medications: Ceftin 500 mg: take 1 tab orally every 12 hours for 10 days. No refills. Substitution is permissible. Follow-up: Follow up with your doctor in one week. Call for an appointment. Understanding of the discharge instructions verbalized by patient. Discharge instructions reviewed (Daughter). (Electronically signed by Bernard Tineo MD 09/19/2016 13:48)
--- NOTE | 2016-09-19 15:29 | ED DISCHARGE INSTRUCTIONS ---
Patient: ELSY FIELDS General Instructions [facility] VisitID: [id number] [address] [place] [address] 71y, F Registration Date/Time: 09/19/2016 Early right sided pyelonephritis. INSTRUCTIONS Drink plenty of fluids. Warnings: Further evaluation is necessary. GENERAL WARNINGS: Return or contact your physician immediately if your condition worsens or changes unexpectedly, if not improving as expected, or if other problems arise. Your Current Medications: CONTINUE TAKING THE FOLLOWING MEDICATIONS: Advair Diskus Inhalation. Albuterol Sulfate HFA Inhalation. Albuterol-Ipratropium Inhalation. Calcitonin ([place]) Nasal. Carvedilol Phosphate ER Oral : 3.125 mg bid. Epinephrine Injection : prn. Ferrous Sulfate Oral. OxyCODONE HCl Oral : Tablet 5 mg, 1/2 tablet- 1 tablet 3x a day, prn. TiZANidine HCl Oral : Tablet 2 mg, 1 tablet 2x a day. Vitamins/Minerals Oral. Prescription Medications: Ceftin 500 mg: take 1 tab orally every 12 hours for 10 days. No refills. Substitution is permissible. Follow-up: Follow up with your doctor in one week. Call for an appointment. Understanding of the discharge instructions verbalized by patient. Discharge instructions reviewed (Daughter). (Electronically signed by Bernard Tineo MD 09/19/2016 13:48)
--- NOTE | 2016-09-19 15:29 | ED MED RECONCILIATION SUMMARY ---
Patient: ELSY FIELDS Medication Reconciliation Report [facility] VisitID: [id number] [address] [place] [address] 71y, F Registration Date/Time: 09/19/2016 Weight: 43.5 kg Height/Length: 61 in. BMI: 18.1 ALLERGIES: Bee Venom, CONTRAST DYE, Iodine, No Known Drug Allergy The patient's Home Medications are listed below: CONTINUE TAKING THE FOLLOWING MEDICATIONS: Advair Diskus Inhalation Albuterol Sulfate HFA Inhalation Albuterol-Ipratropium Inhalation Calcitonin ([place]) Nasal Carvedilol Phosphate ER Oral 3.125 mg , bid Epinephrine Injection Ferrous Sulfate Oral OxyCODONE HCl Oral (5 mg) 1/2 tablet- 1 tablet, 3x a day TiZANidine HCl Oral (2 mg) 1 tablet, 2x a day Vitamins/Minerals Oral The source(s) of the original Home Medication information: Not obtained. The following Medications were given to the patient in the Emergency Department: IV NS IV Fluids bolus 0, then 500 mL/hr, administered: 09/19/2016 1:19:00 PM Rocephin [IVPB] IVPB bolus 0, then 2 gm 100 mL/hr, administered: 09/19/2016 1:20:00 PM The following Medications were prescribed to the patient: Ceftin 500 mg: take 1 tab orally every 12 hours for 10 days. No refills. Substitution is permissible. -- Bernard Tineo MD
--- NOTE | 2016-09-19 15:29 | ED MED RECONCILIATION SUMMARY ---
Patient: ELSY FIELDS Medication Reconciliation Report [facility] VisitID: [id number] [address] [place] [address] 71y, F Registration Date/Time: 09/19/2016 Weight: 43.5 kg Height/Length: 61 in. BMI: 18.1 ALLERGIES: Bee Venom, CONTRAST DYE, Iodine, No Known Drug Allergy The patient's Home Medications are listed below: CONTINUE TAKING THE FOLLOWING MEDICATIONS: Advair Diskus Inhalation Albuterol Sulfate HFA Inhalation Albuterol-Ipratropium Inhalation Calcitonin ([place]) Nasal Carvedilol Phosphate ER Oral 3.125 mg , bid Epinephrine Injection Ferrous Sulfate Oral OxyCODONE HCl Oral (5 mg) 1/2 tablet- 1 tablet, 3x a day TiZANidine HCl Oral (2 mg) 1 tablet, 2x a day Vitamins/Minerals Oral The source(s) of the original Home Medication information: Not obtained. The following Medications were given to the patient in the Emergency Department: IV NS IV Fluids bolus 0, then 500 mL/hr, administered: 09/19/2016 1:19:00 PM Rocephin [IVPB] IVPB bolus 0, then 2 gm 100 mL/hr, administered: 09/19/2016 1:20:00 PM The following Medications were prescribed to the patient: Ceftin 500 mg: take 1 tab orally every 12 hours for 10 days. No refills. Substitution is permissible. -- Bernard Tineo MD
--- NOTE | 2016-09-19 15:29 | ED MAR SUMMARY ---
..... Medication Administration Record [facility] [address] [place] [address] Patient: ELSY FIELDS Visit ID: [id number] 71y, F Weight: 43.5 kg Height/Length: 61 in BMI: 18.1 ALLERGIES: Bee Venom, CONTRAST DYE, Iodine, No Known Drug Allergy Start 13:19 09/19/2016 Chantelle Heard R.N. Medication Administered: IV NS (SALINE), Dose: IV Fluids over 1 hour(s), Rate: 500 mL/hr, Dispensed: 1000 mL bag, Site: #1 right. Medication Ordered: IV NS : initial bolus 500 mL (1000 mL/hr), then 150 mL/hr for 4h (NOW); Routine. Start 13:20 09/19/2016 Chantelle Heard R.N. Medication Administered: ROCEPHIN [IVPB] (CEFTRIAXONE SODIUM), Dose: 2 gm IVPB over 30 minute(s), Rate: 100 mL/hr, Dispensed: 50 mL bag, Site: #1 right. Medication Ordered: Rocephin IV 2 gm/50mL (NOW).
--- NOTE | 2016-09-19 15:29 | ED MAR SUMMARY ---
..... Medication Administration Record [facility] [address] [place] [address] Patient: ELSY FIELDS Visit ID: [id number] 71y, F Weight: 43.5 kg Height/Length: 61 in BMI: 18.1 ALLERGIES: Bee Venom, CONTRAST DYE, Iodine, No Known Drug Allergy Start 13:19 09/19/2016 Chantelle Heard R.N. Medication Administered: IV NS (SALINE), Dose: IV Fluids over 1 hour(s), Rate: 500 mL/hr, Dispensed: 1000 mL bag, Site: #1 right. Medication Ordered: IV NS : initial bolus 500 mL (1000 mL/hr), then 150 mL/hr for 4h (NOW); Routine. Start 13:20 09/19/2016 Chantelle Heard R.N. Medication Administered: ROCEPHIN [IVPB] (CEFTRIAXONE SODIUM), Dose: 2 gm IVPB over 30 minute(s), Rate: 100 mL/hr, Dispensed: 50 mL bag, Site: #1 right. Medication Ordered: Rocephin IV 2 gm/50mL (NOW).
== END 2016-09-19 13:40 | disposition home or self-care (01) ==
LOC: ED SRH 11:27
DX: N12 Tubulo-interstitial nephritis, not specified as acute or chronic (principal); I10 Essential (primary) hypertension; J44.9 Chronic obstructive pulmonary disease, unspecified; F17.210 Nicotine dependence, cigarettes, uncomplicated; Z88.3 Allergy status to other anti-infective agents; Z85.118 Personal history of other malignant neoplasm of bronchus and lung
CPT/HCPCS: 90004; 90070; 90100; 90469; 95059

== ENCOUNTER 2016-10-26 13:12 | Inpatient (IN) | payer OTHER ==
[~2016-10-26] VITALS: Ht 154.9 cm; Wt 41.5 kg
--- NOTE | 2016-10-26 14:10 | DIAGNOSTIC IMAGING REPORT ---
PROCEDURE: XR CHEST 2 VIEW INDICATION: FEVER TECHNIQUE: PA and lateral views. COMPARISON: Compared to chest x-ray and 07/25/2016. FINDINGS: Allowing for overlying wires and electrodes, lungs are clear (although hyperexpanded). Interval resolution of left basilar pneumonia. Heart and mediastinum are normal. Thorax is normal. IMPRESSION: 1. Chronic obstructive pulmonary disease. 2. Otherwise negative chest.
--- NOTE | 2016-10-26 14:12 | DIAGNOSTIC IMAGING REPORT ---
PROCEDURE: XR ABDOMEN 1 VIEW UPRIGHT INDICATION: ABDOMINAL PAIN TECHNIQUE: AP upright view. COMPARISON: None. FINDINGS: There are moderately distended central bowel loops with fluid levels. There is a right lower quadrant ostomy and there are surgical clips overlying the lower pelvis. No evidence of free air. Soft tissues are normal. Mild dextroscoliosis and moderate degenerative changes of the lumbar spine. IMPRESSION: 1. Moderately distended central bowel loops consistent with small bowel obstruction. 2. Postoperative changes of right lower quadrant ostomy.
--- NOTE | 2016-10-26 16:00 | ED CLINICAL REPORT ---
Clinical Report - Physicians/Mid Levels [facility] [address] [place] [address] 10/26/2016 13:12 Patient: ELSY FIELDS Time Seen: 14:01 Oct 26 2016. Arrived- By private vehicle. Historian- patient and family. HISTORY OF PRESENT ILLNESS Chief Complaint: weakness. (patient reports feeling weakness over the last few weeks, recently with bladder infection, and status post was seen at urgent care clinic, as she had oral thrush. Patient reports over last 5 days, increase in her cough and shortness of breath, had a breathing treatment prior to arrival. Reports decrease in output from her stool. Patient otherwise denies any nausea or vomiting. Reports a lump in her abdomen has been present, possible hernia. Patient lives alone, here with HER-2 daughters. She has had primarily abdominal pain, nausea and vomiting, and only small output of stool. Pt uses her advair/ spiriva/ duoneb regularly at home.). REVIEW OF SYSTEMS No sore throat or sinus drainage. She has had a cough and chills. All systems otherwise negative, except as recorded above. PAST HISTORY CA in remission for 4-5 years, no chemo/ radiation. Problems: Pyelonephritis. Hypertension. UTI - Urinary Tract Infection. COPD - Chronic Obstructive Pulmonary Disease. Bronchitis. Hernia. 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 Myocardial Infarction. Asthma. Additional Surgeries: Appendectomy. . Hysterectomy. Oophorectomy. Salpingectomy. Tonsillectomy & Adenoidectomy. Ureterostomy. Medications: Advair Diskus Inhalation. Albuterol Sulfate HFA Inhalation. Albuterol-Ipratropium Inhalation. Calcitonin ([place]) Nasal. Carvedilol Phosphate ER Oral 3.125 mg , bid. Epinephrine Injection, as needed. Ferrous Sulfate Oral. OxyCODONE HCl Oral (Tablet 5 mg) 1/2 tablet- 1 tablet, 3x a day as needed. TiZANidine HCl Oral (Tablet 2 mg) 1 tablet, 2x a day. Vitamins/Minerals Oral. Allergies: Bee Venom. CONTRAST DYE. Iodine. SOCIAL HISTORY Smoker- current status unknown (continues to smoke a few cigs every now and again). ADDITIONAL NOTES The nursing notes have been reviewed. PHYSICAL EXAM Vital Signs: 10/26/2016 13:37 BP: 131/78. HR: 84. RR: 22. O2 saturation: 94%. Temp: 98.4 F. Pain level now: 11/03. Appearance: Alert. No apparent distress. Does not appear to be anxious. Eyes: Eyes normal inspection. ENT: Ears normal. CVS: Normal heart rate and rhythm. Heart sounds normal. Respiratory: No respiratory distress. Wheezing present. No decreased air movement. Abdomen: Tenderness. (Right urostomy, medial to such small reducible hernia. slight surrounding tenderness. No rash.). Back: Normal inspection. No CVA tenderness. Skin: Skin warm. Normal skin color. Neuro: Oriented X 3. LABS, X-RAYS, AND EKG EKG: EKG time: (1413). No acute process. No acute ischemia. Rate: 83. Normal QRS complex. Normal axis. no change from mar 28, 2015. Chest X-ray: (IMPRESSION: 1. Chronic obstructive pulmonary disease. 2. Otherwise negative chest. Electronically Final signed by:Ebenezer Bell MD 10/26/2016 2:07:17 PM). KUB: (IMPRESSION: 1. Moderately distended central bowel loops consistent with small bowel obstruction. 2. Postoperative changes of right lower quadrant ostomy. Electronically Final signed by:Ebenezer Bell MD 10/26/2016 2:09:18 PM). Laboratory Tests: UA-Culture if indicated: (JULIO C: 10/26/2016 14:40) ( MsgRcvd 10/26/2016 15:43) Final results Test Result Flag Units (Reference) URINE COLOR YELLOW URINE APPEARANCE SL CLOUDY URINE GLUCOSE NEGATIVE (NEGATIVE) URINE BILIRUBIN NEGATIVE (NEGATIVE) URINE KETONE NEGATIVE (NEGATIVE) URINE SPECIFIC GRAVITY <= 1.005 L (1.010-1.030) URINE PH 6.0 (5.0-8.0) URINE PROTEIN NEGATIVE (NEGATIVE) URINE UROBILINOGEN 0.2 EU/dL (0.2-1.0) URINE NITRITE NEGATIVE (NEGATIVE) URINE BLOOD TRACE-INTACT (NEGATIVE) URINE LEUK ESTERASE TRACE (NEGATIVE) URINE RBC 1-3 rbc/hpf (0-1) URINE WBC 10-15 wbc/hpf (0-1) URINE EPITHELIAL CELLS NONE SEEN EPI/hpf (0-5) URINE BACTERIA MODERATE (2+ TO 3+) (NONE SEEN) URINE COMMENT CULTURE INDICATED RARE HYALINE CASTURINE CULTURES ARE SET-UP BASED ON THE FOLLOWING CRITERIA:POSITIVE NITRITEPOSITIVE LEUKOCYTE ESTERASEGREATER THAN 10 WHITE BLOOD CELLSMODERATE (2+) OR GREATER BACTERIA CBC w Diff: (JULIO C: 10/26/2016 14:35) ( [facility] [place] 10/26/2016 14:44) Final results Test Result Flag Units (Reference) WHITE BLOOD COUNT 9.8 K/uL (4.5-11.5) RED BLOOD COUNT 4.24 M/uL (4.00-5.20) HEMOGLOBIN 13.4 gm/dL (12.0-16.0) HEMATOCRIT 39.8 % (36.0-46.0) MEAN CELL VOLUME 94 fL (80-100) MEAN CORPUSCULAR HGB 32 pg (26-34) MEAN CORPUSCULAR HGB CONC 34 g/dL (31-37) RED CELL DISTRIBUTION WIDTH 14.1 % (11.6-14.8) PLATELET COUNT 361 K/uL (150-400) NEUTROPHIL % 81.3 H % (50-75) LYMPH % 8.2 L % (25-40) MONO % 9.4 % (3-14) EOSINOPHIL % 0.8 % (0-4) BASOPHIL % 0.3 % (0-2) PT with INR: (JULIO C: 10/26/2016 14:35) ( [facility] [place] 10/26/2016 15:39) Final results Test Result Flag Units (Reference) INR 0.9 (0.8-1.2) Low Intensity Therapy: INR 1.5-2.0 PT range 18.5-23.1Mod.Intensity Therapy: INR 2.0-3.0 PT range 23.1-31.5High Intensity Therapy: INR 2.5-3.5 PT range 27.4-35.5High Intensity Therapy 2: INR 3.0-4.0 PT range 31.5-39.3 APTT 45 H SECONDS (24-34) CHEM 13 PANEL: (JULIO C: 10/26/2016 14:35) ( MsgRcvd 10/26/2016 15:52) Final results Test Result Flag Units (Reference) GLUCOSE 105 mg/dL (70-110) BUN 16 mg/dL (7-18) CREATININE 0.8 mg/dL (0.6-1.3) Estimated GFR >60 mL/min Estimated GFR- >60 mL/min Note: Persistent reduction over 3 months in eGFR<60 mL/min/1.73 m2 defines CKD. Patients with eGFR values>=60 mL/min/1.73 m2 may also have CKD if evidence ofpersistent proteinuria. Additional information may be foundat www.[email or web address].org. SODIUM 133 L mmol/L (136-145) POTASSIUM 4.9 mmol/L (3.5-5.1) CHLORIDE 98 mmol/L (98-107) CARBON DIOXIDE 25 mmol/L (21-32) CALCIUM 9.0 mg/dL (8.5-10.1) TOTAL PROTEIN 7.1 g/dL (6.4-8.2) ALBUMIN 3.5 g/dL (3.3-5.0) BILIRUBIN, TOTAL 0.3 mg/dL (0.0-1.0) ALKALINE PHOSPHATASE 67 U/L (46-116) AST (SGOT) 22 U/L (15-37) ALT (SGPT) 21 U/L (12-78) CPK 29 U/L (24-260) MAGNESIUM 1.9 mg/dL (1.8-2.4) TROPONIN I <0.05 L ng/mL (0.00-1.5) TROPONIN REFERENCE RANGE:<0.1 NEGATIVE0.1-1.5 INDETERMINANT>1.5 POSITIVE . PROGRESS AND PROCEDURES Course of Care: patient wasn't wheezing, otherwise no respiratory distress, no fevers, no signs of leukocytosis, chest x-ray unremarkable, no obvious signs of pneumonia, and a negative pro-calcitonin, . Patient is with signs of small bowel obstruction, discussed the case with Dr. Stone, who would prefer to have the case also discussed with Specialist, surgeon Dr. Angelo, will admit. Discussed with DR. Williamson, requesting ct /abd, and NG tube. Will initiate such for patient. Admit to hospital. NG in place. Patient is stable. Symptoms better. Discussed case with health care provider (Jarvis). Patient/family counseled. Disposition: Admitted. CLINICAL IMPRESSION Essential hypertension. SBO COPD exacerbation. (Electronically signed by Swapna Tavarez P.A.-C 10/26/2016 18:59)
--- NOTE | 2016-10-26 16:00 | ED NURSING NOTES ---
Clinical Report - Nurses [facility] [address] [place] [address] 10/26/2016 13:12 Patient: ELSY FIELDS TRIAGE Triage time 13:27 Oct 26 2016. Acuity: LEVEL 3. Chief Complaint: ABDOMINAL PAIN, NAUSEA and VOMITING and (This morning normal stool after laxative but has been constipated "like pellets", body aches, lower abd pain all over). SEPSIS SCREEN: Sepsis Screen. Negative (no infection suspected/documented). [place]PER COMA SCORE: [place] Coma Scale: 15- eyes open spontaneously (4); best verbal response- oriented x 4 (5); best motor response- obeys commands (6). --13:34 Doretha Padron R.N. 13:37 10/26/16. BP: 131/78 (regular adult cuff) taken on the left arm, while sitting. HR: 84. RR: 22 (regular). O2 saturation: 94% on room air. Temp: 98.4 F (oral). Pain level now: 4/10. Additional comments: Lumbar back and abd. --13:39 Doretha Padron R.N. Weight: 39.9 kg stated. Height/Length: 61 inches Per Patient. BMI: 16.6. --13:34 Doretha Padron R.N. Medications Advair Diskus Inhalation. Albuterol Sulfate HFA Inhalation. Albuterol-Ipratropium Inhalation. Calcitonin ([place]) Nasal. Carvedilol Phosphate ER Oral 3.125 mg , bid. Epinephrine Injection, as needed. Ferrous Sulfate Oral. OxyCODONE HCl Oral (Tablet 5 mg) 1/2 tablet- 1 tablet, 3x a day as needed. TiZANidine HCl Oral (Tablet 2 mg) 1 tablet, 2x a day. Vitamins/Minerals Oral. --13:30 Doretha Padron R.N. Allergies Bee Venom. CONTRAST DYE. Iodine. --13:30 Doretha Padron R.N. History Arrived by private vehicle. Historian: patient and family. Accompanied by family. Primary physician (ALEJANDRA BOURGEOIS). Onset. (1 week ago). ( Has been on a lot of ABX for kidney infections, has had thrush and has been on medication for the thrush for several days. SOB as well, hx COPD). She has had nausea, vomiting and abdominal pain. Last oral intake by patient was breakfast (ensure). 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 PAST MEDICAL HX: The patient is post-menopausal. SOCIAL HX: Light tobacco smoker- less than 1/2 a pack per day. No alcohol use or drug use. No recent travel. No infectious disease exposure. No known contact with a sick individual. ABUSE ASSESSMENT: No report of abuse. --13:34 Doretha Padron R.N. PROBLEMS: Pyelonephritis. Hypertension. UTI - Urinary Tract Infection. COPD - Chronic Obstructive Pulmonary Disease. Bronchitis. Hernia. 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 Myocardial Infarction. Asthma. --13:31 Doretha Padron R.N. ADDITIONAL SURGERIES: Appendectomy. . Hysterectomy. Oophorectomy. Salpingectomy. Tonsillectomy & Adenoidectomy. Ureterostomy. --13:31 Doretha Padron R.N. Interventions ID band on patient. To treatment room. --13:34 Doretha Padron R.N. PHYSICAL ASSESSMENT 13:37 10/26/16. To room via wheelchair. GENERAL / NEURO / PSYCH: Alert. Oriented X 4. Appears anxious. HEENT: Mucous membranes are pink. RESPIRATORY: Expiratory and inspiratory wheezes present. ( Albuterol tx prior to coming in). CVS: Capillary refill less than 2 seconds. GI / : Abdomen soft and nontender. Diminished bowel sounds in all quadrants. Stool color normal. SKIN: Skin is warm. --13:37 Doretha Padron R.N. GI / : ( Patient has a urostomy in place RLQ). --13:50 Doretha Padron R.N. NURSING PROGRESS NOTES The plan of care for this patient has been created. Monitoring of patient in place. Patient gowned. Head of bed elevated. Reassurance given. Two patient identifiers checked. Call light placed in reach. Side rails up x 1. Bed placed in lowest position. Brakes of bed on. Patient ready for evaluation- chart flagged and ED physician notified. --13:37 Doretha Padron R.N. Patient transported to radiology by stretcher with tech. (13:56 Oct 26 2017). --13:56 Doretha Padron R.N. 14:15 10/26/2016 Albuterol Neb TX Nebulizer 1 unit dose given. --14:15 Bernard Edwards 14:17 10/26/16. EKG time: (1413). EKG was performed by a tech and shown to the PA. --14:17 Shanique Sung 14:37 10/26/2016 Site #1 started via IV in the left antecubital space with an 20g angiocath, with aseptic technique and good blood return; two attempts. Blood drawn: rainbow set. Labeled in the presence of the patient and sent to the lab. Saline lock flushed with 10 mL saline. --14:37 Doretha Padron R.N. 15:18 10/26/2016 Zofran (Ondansetron HCl) IVP 4 mg given over 1 minute(s) via site #1. Allergies verified and confirmed 5 rights. IV patency established. IV site checked: no pain, redness, or swelling. IV flushed thoroughly pre- and post-medication administration. IVP given by RN. --15:20 Doretha Padron R.N. 14:00 10/26/16. HR: 85. RR: 18 (regular). O2 saturation: 95% on room air. Pain level now: 0/10. --15:35 Doretha Padron R.N. 15:44 10/26/2016 Zofran (Ondansetron HCl) IVP 4 mg given over 1 minute(s) via site #1. Allergies verified and confirmed 5 rights. IV patency established. IV site checked: no pain, redness, or swelling. IV flushed thoroughly pre- and post-medication administration. IVP given by RN. --15:44 Doretha Padron R.N. 15:44 10/26/2016 Zofran IVP Response: no adverse reaction pain is improving. Symptoms are the same. The patient feels the same. --15:44 Doretha Padron R.N. 15:45 10/26/16. BP: 107/63 (regular adult cuff) taken on the left arm, while sitting. HR: 87. RR: 18 (regular). O2 saturation: 98% on room air. Pain level now: 11/03. Additional comments: LOW BACK. --15:46 Doretha Padron R.N. ( Daughters sitting at bedside). --15:46 Doretha Padron R.N. 16:10 10/26/2016 Started bag #1 1000 mL IV Fluids IV NS (Saline); bolus of 250 mL over 15 minute(s) then at 1000 mL/hr over 1 hour(s) via site #1 via IV pump. Allergies verified and confirmed 5 rights. IV patency established. IV site checked: no pain, redness, or swelling. IV flushed thoroughly pre- and post-medication administration. --16:10 Doretha Padron R.N. 16:10 10/26/16. BP: 110/63 (regular adult cuff) taken on the left arm, while sitting. HR: 78. RR: 18 (regular). O2 saturation: 96% on room air. Pain level now: 11/03. --16:11 Doretha Padron R.N. 16:27 10/26/2016 Zofran IVP Response: no adverse reaction pain is gone now. Symptoms have improved the patient feels better. --16:27 Doretha Padron R.N. 16:28 10/26/2016 PROTONIX 40MG (Pantoprazole Sodium) IVP 40 mg given over 2 minute(s) via site #1. Allergies verified and confirmed 5 rights. IV patency established. IV site checked: no pain, redness, or swelling. IV flushed thoroughly pre- and post-medication administration. IVP given by RN (40mg mixed into 10mL NS and pushed over 2 minutes). --16:28 Doretha Padron R.N. 16:29 10/26/2016 IV Fluids IV NS via IV site #1 Rate Changed: bag #1 decreased to 100 mL/hr via IV pump. IV patency established. IV site checked: no pain, redness, or swelling. IV flushed thoroughly. Confirmed 5 Rights. --16:29 Doretha Padron R.N. Patient transported to CT by stretcher with tech. (16:29 Oct 26 2016). --16:29 Doretha Padron R.N. 16:41 10/26/16. Patient returned from CT by stretcher with tech. --16:41 Fatou Steiner R.N. 16:56 10/26/16. BP: 154/73 (regular adult cuff) taken on the left arm, while sitting. HR: 85. RR: 18. O2 saturation: 94% on room air. Pain level now: 12/03. Additional comments: low back pain. --16:58 Doretha Padron R.N. 17:07 10/26/2016 PROTONIX 40MG IVP Response: no adverse reaction pain is gone now. Symptoms have improved the patient feels better. --17:07 Doretha Padron R.N. 17:26 10/26/16. BP: 95/67. HR: 81. RR: 18. O2 saturation: 92% on room air. Pain level now: 12/03. --17:27 Doretha Padron R.N. 17:48 10/26/2016 Dilaudid (HYDROmorphone HCl PF) IVP 0.5 mg given over 1 minute(s) via site #1. Allergies verified, confirmed 5 rights and sedative warning given to the patient. IV patency established. IV site checked: no pain, redness, or swelling. IV flushed thoroughly pre- and post-medication administration. IVP given by RN. --17:48 Doretha Padron R.N. 17:49 10/26/16. BP: 157/78 (regular adult cuff) taken on the left arm, while sitting. HR: 92. RR: 18 (regular). O2 saturation: 92% on room air. Pain level now: 11/03. --17:51 Doretha Padron R.N. 17:56 10/26/2016 Nicoderm Topical 21 mg (NOW) was refused by patient because of concern over the side effects (Patient only takes 7mg). Doretha Padron --17:56 Doretha Padron R.N. ( Patients daughters back in room. No one needs anything at this time. Patients pain is much better). --18:17 Doretha Padron R.N. 18:15 10/26/16. BP: 115/62 (regular adult cuff) taken on the left arm, while sitting. HR: 87. RR: 18. O2 saturation: 93% on room air. Pain level now: 08/05. --18:17 Doretha Padron R.N. <<STRICKEN ENTRY-- late entry - 17:37 10/26/16. GASTRIC LAVAGE: Gastric lavage performed by nurse (Doretha). Assisted by one nurse (Hal). Preparation: gastric lavage tray at bedside, patient placed on pulse oximeter and applications engineering manager and IV established. Patient positioned with head of bed elevated. Procedure: gag reflex checked and is present. Topical anesthetic applied to pharynx .16 fr nasogastric tube inserted. Initial return consisted of bilious drainage. Post-procedure: tube attached to suction. Patient's head of bed elevated. Drainage is bilious in appearance. Patient status is improved. Patient tolerated procedure well. Total time of assist / procedure: 30 minutes. --18:37 Doretha Padron R.N. --END STRIKE>> charted wrong --19:03 Doretha Padron R.N. 18:20 10/26/2016 Dilaudid IVP Response: no adverse reaction pain is gone now. Symptoms have improved the patient feels better. --18:20 Doretha Padron R.N. 18:32 10/26/16. BP: 116/69. HR: 79. RR: 18 (regular). O2 saturation: 91% on room air. Temp: 98.4 F (oral). Pain level now: 08/05. --18:34 Doretha Padron R.N. ( Patient is doing well, throat still sore from NG tube placement, one granddaughter still sitting at bedside, they are anxious to get a room and for patient to get in a more comfortable bed). --18:34 Doretha Padron R.N. ( gastric contents pumping intermittent greenish yellow fluid 50cc). --18:35 Doretha Padron R.N. 18:55 10/26/16. BP: 134/60 (regular adult cuff) taken on the left arm, while sitting. HR: 78. RR: 18. O2 saturation: 93% on room air. Pain level now: 08/05. --18:55 Droetha Padron R.N. 16 fr NG tube inserted in right nostril with no difficulty. Placement confirmed by auscultation. Return: green fluid. Tube secured. Attached to low and intermittent suction. (50 mL 17:37 Oct 26 2016). --19:05 Doretha Padron R.N. Care transferred and report given (Andra WALLACE). --19:08 Doretha Padron R.N. DISPOSITION / DISCHARGE 19:44 10/26/2016 Site #[address] upon admission; patent. --19:44 Andra Cox R.N. 19:44 10/26/2016 IV Fluids IV NS Continued: at the rate of 100 mL/hr. 400 mL remaining bag #1. IV patency established. IV site checked: no pain, redness, or swelling. IV flushed thoroughly. --19:44 Andra Cox R.N. 19:45 10/26/16. Cardiac rhythm: normal sinus rhythm. Condition at departure: improved and stable. The goals identified in the patient's plan of care were met. Admitted to Acute Care. Transported via stretcher by [employer] with IV. Report was given to a nurse via a phone call. Report included patient's care, treatment, medications, reviewed medication reconcilliation, and condition (including any recent changes or anticipated changes). All questions were answered. (RODRIGO Trinh). Patient's personal items; items were placed in belongings bag. --19:45 Andra Cox R.N. 19:27 10/26/16. BP: 115/66. HR: 76. RR: 18. O2 saturation: 93%. Pain level now: 11/03. 18:55 10/26/16. BP: 134/60 (regular adult cuff) taken on the left arm, while sitting. HR: 78. RR: 18. O2 saturation: 93% on room air. Pain level now: 08/05. 18:32 10/26/16. BP: 116/69. HR: 79. RR: 18 (regular). O2 saturation: 91% on room air. Temp: 98.4 F (oral). Pain level now: 08/05. 18:15 10/26/16. BP: 115/62 (regular adult cuff) taken on the left arm, while sitting. HR: 87. RR: 18. O2 saturation: 93% on room air. Pain level now: 08/05. 17:49 10/26/16. BP: 157/78 (regular adult cuff) taken on the left arm, while sitting. HR: 92. RR: 18 (regular). O2 saturation: 92% on room air. Pain level now: 11/03. 17:26 10/26/16. BP: 95/67. HR: 81. RR: 18. O2 saturation: 92% on room air. Pain level now: 12/03. 16:56 10/26/16. BP: 154/73 (regular adult cuff) taken on the left arm, while sitting. HR: 85. RR: 18. O2 saturation: 94% on room air. Pain level now: 12/03. Additional comments: low back pain. 16:10 10/26/16. BP: 110/63 (regular adult cuff) taken on the left arm, while sitting. HR: 78. RR: 18 (regular). O2 saturation: 96% on room air. Pain level now: 11/03. 15:45 10/26/16. BP: 107/63 (regular adult cuff) taken on the left arm, while sitting. HR: 87. RR: 18 (regular). O2 saturation: 98% on room air. Pain level now: 11/03. Additional comments: LOW BACK. 14:00 10/26/16. HR: 85. RR: 18 (regular). O2 saturation: 95% on room air. Pain level now: . 13:37 10/26/16. BP: 131/78 (regular adult cuff) taken on the left arm, while sitting. HR: 84. RR: 22 (regular). O2 saturation: 94% on room air. Temp: 98.4 F (oral). Pain level now: 11/03. Additional comments: Lumbar back and abd. --19:45 Andra Cox R.N. Locked/Released at 10/26/2016 20:55 by Andra Cox R.N.
--- NOTE | 2016-10-26 16:00 | ED ORDER SUMMARY ---
..... Patient: ELSY FIELDS OrderSheet [facility] VisitID: [id number] [place] [address] 71y, F Registration Date/Time: 10/26/2016 ORDER SHEET Weight: 39.9 kg (stated) Allergies: Bee Venom, CONTRAST DYE, Iodine GENERAL ORDERS: Chest 2V Urgent (13:49 10/26/2016 EKoroleva P.A.-C) (Ack 13:53 KHoerner) (14:03 Vinod) Cardiac Panel Stat (13:50 10/26/2016 EKoroleva P.A.-C) (Ack 13:53 KHoerner) (14:37 JSanders R.N.) Technical Support Assistant (Continuous) (13:50 10/26/2016 EKoroleva P.A.-C) (13:51 JSanders R.N.) (Ack 13:53 KHoerner) UA-Culture if indicated Urgent (13:50 10/26/2016 EKoroleva P.A.-C) (Ack 13:53 KHoerner) (14:58 JSanders R.N.) EKG - ER Stat (13:50 10/26/2016 EKoroleva P.A.-C) (Ack 13:53 KHoerner) (14:17 KHoerner) PCT (Procalcitonin) Urgent (13:53 10/26/2016 EKoroleva P.A.-C) (Ack 13:53 KHoerner) (14:37 JSanders R.N.) Abdomen 1V Upright Urgent (13:58 10/26/2016 EKoroleva P.A.-C) (Ack 13:59 KHoerner) (14:03 Vinod) PT with INR Urgent (14:08 10/26/2016 EKoroleva P.A.-C) (Ack 14:16 KHoerner) (14:37 JSanders R.N.) PTT Urgent (14:08 10/26/2016 EKoroleva P.A.-C) (Ack 14:16 KHoerner) (14:37 JSanders R.N.) Magnesium Urgent (14:40 10/26/2016 EKoroleva P.A.-C) (Ack 14:41 Crescencio) (14:57 JSanders R.N.) Vitals (BP) (15:38 10/26/2016 EKoroleva P.A.-C) (15:39 JSanders R.N.) CT Abd/Pel wo Cont Urgent (16:24 10/26/2016 EKoroleva P.A.-C) (16:37 Vinod) NG Tube (to intermittent suction) (16:53 10/26/2016 EKoroleva P.A.-C) (17:36 JSanders R.N.) MEDICATION ORDERS: Albuterol Neb Tx 2.5 mg (NOW) (13:49 10/26/2016 EKoroleva P.A.-C) (14:15 MNance) Nicoderm Topical 21 mg (NOW) (17:37 10/26/2016 EKoroleva P.A.-C) (17:56 JSanders R.N.) IV FLUIDS: IV Saline Lock (13:50 10/26/2016 EKoroleva P.A.-C) (Ack 13:55 JSanders R.N.) (14:37 JSanders R.N.) Zofran IV 8 mg (NOW) (15:14 10/26/2016 EKoroleva P.A.-C) (15:20 JSanders R.N.) IV NS : initial bolus 250 mL (1000 mL/hr), then 100 mL/hr for X1 (NOW); Yosef (15:59 10/26/2016 EKoroleva P.A.-C) (16:10 JSanders R.N.) Protonix IVP 40mg 40 mg (Mix in NS 10ml over 2min) (16:14 10/26/2016 EKoroleva P.A.-C) (16:28 JSanders R.N.) Dilaudid IV 0.5 mg (HIGH ALERT MEDICATION, NOW) (17:37 10/26/2016 EKoroleva P.A.-C) (17:48 JSanders R.N.) ORDER SHEET NOTES: [Electronically signed by Swapna Tavarez P.A.-C (18:59 10/26/2016)] [Electronically signed by Andra Cox R.N. (20:55 10/26/2016)] [Electronically locked/signed by Andra Cox R.N. (20:55 10/26/2016)]
--- NOTE | 2016-10-26 16:00 | ED ORDER SUMMARY ---
..... Patient: ELSY FIELDS OrderSheet [facility] VisitID: [id number] [place] [address] 71y, F Registration Date/Time: 10/26/2016 ORDER SHEET Weight: 39.9 kg (stated) Allergies: Bee Venom, CONTRAST DYE, Iodine GENERAL ORDERS: Chest 2V Urgent (13:49 10/26/2016 EKoroleva P.A.-C) (Ack 13:53 KHoerner) (14:03 Vinod) Cardiac Panel Stat (13:50 10/26/2016 EKoroleva P.A.-C) (Ack 13:53 KHoerner) (14:37 JSanders R.N.) Electrical Tech/Project Manager (Continuous) (13:50 10/26/2016 EKoroleva P.A.-C) (13:51 JSanders R.N.) (Ack 13:53 KHoerner) UA-Culture if indicated Urgent (13:50 10/26/2016 EKoroleva P.A.-C) (Ack 13:53 KHoerner) (14:58 JSanders R.N.) EKG - ER Stat (13:50 10/26/2016 EKoroleva P.A.-C) (Ack 13:53 KHoerner) (14:17 KHoerner) PCT (Procalcitonin) Urgent (13:53 10/26/2016 EKoroleva P.A.-C) (Ack 13:53 KHoerner) (14:37 JSanders R.N.) Abdomen 1V Upright Urgent (13:58 10/26/2016 EKoroleva P.A.-C) (Ack 13:59 KHoerner) (14:03 Vinod) PT with INR Urgent (14:08 10/26/2016 EKoroleva P.A.-C) (Ack 14:16 KHoerner) (14:37 JSanders R.N.) PTT Urgent (14:08 10/26/2016 EKoroleva P.A.-C) (Ack 14:16 KHoerner) (14:37 JSanders R.N.) Magnesium Urgent (14:40 10/26/2016 EKoroleva P.A.-C) (Ack 14:41 Crescencio) (14:57 JSanders R.N.) Vitals (BP) (15:38 10/26/2016 EKoroleva P.A.-C) (15:39 JSanders R.N.) CT Abd/Pel wo Cont Urgent (16:24 10/26/2016 EKoroleva P.A.-C) (16:37 Vinod) NG Tube (to intermittent suction) (16:53 10/26/2016 EKoroleva P.A.-C) (17:36 JSanders R.N.) MEDICATION ORDERS: Albuterol Neb Tx 2.5 mg (NOW) (13:49 10/26/2016 EKoroleva P.A.-C) (14:15 MNance) Nicoderm Topical 21 mg (NOW) (17:37 10/26/2016 EKoroleva P.A.-C) (17:56 JSanders R.N.) IV FLUIDS: IV Saline Lock (13:50 10/26/2016 EKoroleva P.A.-C) (Ack 13:55 JSanders R.N.) (14:37 JSanders R.N.) Zofran IV 8 mg (NOW) (15:14 10/26/2016 EKoroleva P.A.-C) (15:20 JSanders R.N.) IV NS : initial bolus 250 mL (1000 mL/hr), then 100 mL/hr for X1 (NOW); Yosef (15:59 10/26/2016 EKoroleva P.A.-C) (16:10 JSanders R.N.) Protonix IVP 40mg 40 mg (Mix in NS 10ml over 2min) (16:14 10/26/2016 EKoroleva P.A.-C) (16:28 JSanders R.N.) Dilaudid IV 0.5 mg (HIGH ALERT MEDICATION, NOW) (17:37 10/26/2016 EKoroleva P.A.-C) (17:48 JSanders R.N.) ORDER SHEET NOTES: [Electronically signed by Swapna Tavarez P.A.-C (18:59 10/26/2016)] [Electronically signed by Andra Cox R.N. (20:55 10/26/2016)] [Electronically locked/signed by Andra Cox R.N. (20:55 10/26/2016)]
--- NOTE | 2016-10-26 17:27 | DIAGNOSTIC IMAGING REPORT ---
PROCEDURE: CT ABDOMEN/PELVIS W/O CONTRAST INDICATION: Abdominal pain. Possible bowel obstruction. Status post ureteral ileal loop diversion an ostomy. TECHNIQUE: Noncontrast axial images were obtained of the entire abdomen and pelvis with sagittal and coronal reformations. Intravenous contrast was not utilized (reported contrast allergy). COMPARISON: Comparison is made to abdominal radiograph earlier today. FINDINGS: ABDOMEN: Moderately to marked fluid distention of disc small bowel loops. No evidence of fluid collection or abscess. Large bowel pattern is normal. Appendix is not identified with surgical clips in right lower quadrant (reported appendectomy). Status post ileal loop urinary diversion with right lower quadrant ostomy. Kidneys are normal and there is no evidence of hydronephrosis. Gallbladder, liver, spleen, pancreas are normal. Bernard calcified atheromatous changes aorta and mesenteric vessels, but no evidence of aneurysm. There is a 20% old compression fracture of the L1 vertebral body. Mild dextroscoliosis and moderate degenerative changes of the lumbar spine. PELVIS: Status post cystectomy and probable hysterectomy. Surgical clips overlying the pelvis. IMPRESSION: 1. Moderate to marked distention of distal small bowel loops consistent with bowel obstruction. 2. Status post right lower quadrant ileal loop diversion. No evidence of urinary tract obstruction. 3. Status post urinary cystectomy hysterectomy, and appendectomy (reportedly). 4. Marked calcified atheromatous change of the aorta. 5. Findings discussed with KOBI Pro. All CT scans at this facility use dose modulation, iterative reconstruction, and/or weight-based dosing when appropriate to reduce radiation dose to as low as reasonably achievable.
--- NOTE | 2016-10-26 18:36 | Progress Note ---
E&M Codes Admission: Inpt-High/38890 Patient Name: Susie Reynolds Admission Date: October 26, 2016 Primary Care Provider: Roman Fulton D.O. Attending Physician: Gordo Conley M.D. Admitting Physician: Gordo Conley M.D. Code Status: No Code Room: [Room] SUBJECTIVE Historian: Patient Reliability: Fair Chief Complaint: Abdominal pain, nausea, vomiting, shortness of breath History of Present Illness: The patient is a 71-year-old white female with a significant past medical history of COPD, bladder carcinoma status post cystectomy/ileostomy, lung CA, hypertension, coronary artery disease, who presented to [facility] emergency department on the day of admission secondary to complaints of abdominal pain, nausea, vomiting, and shortness of breath. [facility] ER evaluation was consistent with small bowel obstruction and minor exacerbation of COPD. Secondary to the above, the patient was admitted by Gordo Conley M.D. for further evaluation and treatment. PAST MEDICAL HISTORY Illnesses: 1. COPD 2. Hypertension 3. Recurrent UTI 4. Lung CA-DEANNA 5. Bladder CA-status post cystectomy/urostomy-DEANNA 6. Coronary disease Allergies: 1. Iodinated contrast material Medications: 1. [Meds] Surgery: 1. Appendectomy 2. NICHLO-BSO 3. Urostomy 4. Tonsils and adenoidectomy 5. Injuries: 1. No significant Hospitalizations: 1. For above surgery and medical problems FAMILY HISTORY Parents: 1. Father, [status], 2. Mother, [status] Siblings: 1. [sibs] Children: 1. [children] Other significant family history: [other] SOCIAL HISTORY 1. Marital Status: [] 2. Yazdanism: [hinduism] 3. Education: [ed] 4. Employment History: [work] 5. Occupational health exposures: [occupation] HABITS 1. Tobacco: [tobacco] 2. Drugs: [drugs] 3. Alcohol: [alcohol] 4. Caffeine: [caffeine] HEALTH SUPERVISION Item/Test 1. Vision screen: [vision] 2. Cholesterol Profile: [chol] 3. PSA: [PSA] 4. CHERELLE: [CHERELLE] 5. FOBT: [FOBT] 6. Blood Glucose: [GLU] 7. Colonoscopy: [colonoscopy] 8. History and physical exam: [H&P] 9. Audiogram: [Audiogram] 10. Mammogram: [Mammogram] 11. Pap/pelvic exam: [Pap/pelvic] IMMUNIZATIONS: 1. Pneumococcal: [pneumonia] 2. Influenza: [flu] 3. Tetanus: [tet] ADVANCED DIRECTIVES: 1. Living well: [Living well] 2. POLST: [POLST] 3. Code Status: [CODE STATUS] 4. Durable Power [address] Police Officer Health care: [DPOA] 5. Donor card: [Donor card] REVIEW OF SYSTEMS Remarkable for those things stated in the history of present illness and past medical history. Seventeen point review of system completed with the following notable findings: [ROS] Physical Exam Vital Signs / I&Os Blood pressure: 131/78 mmHg Respiratory rate: 22 Heart rate: 84 Temperature: 98.4 Fahrenheit orally Pulse oximetry: 94% room air LAB Results Laboratory Tests 10/26 10/26 10/26 1440 1435 1435 Chemistry Plasma Sodium (136 - 145 mmol/L) 133 Plasma Potassium (3.5 - 5.1 mmol/L) 4.9 Plasma Chloride (98 - 107 mmol/L) 98 CO2 (Enzymatic) (21 - 32 mmol/L) 25 BUN (7 - 18 mg/dL) 16 Creatinine (0.6 - 1.3 mg/dL) 0.8 Est GFR ( Amer) (mL/min) >60 Est GFR (Non-Af Amer) (mL/min) >60 Glucose (70 - 110 mg/dL) 105 Plasma Calcium (8.5 - 10.1 mg/dL) 9.0 Plasma Magnesium (1.8 - 2.4 mg/dL) Cancelled 1.9 Total Bilirubin (0.0 - 1.0 mg/dL) 0.3 AST (15 - 37 U/L) 22 ALT (12 - 78 U/L) 21 Alkaline Phosphatase (46 - 116 U/L) 67 Creatine Kinase (24 - 260 U/L) 29 Troponin (0.00 - 1.5 ng/mL) <0.05 Total Protein (6.4 - 8.2 g/dL) 7.1 Albumin (3.3 - 5.0 g/dL) 3.5 Procalcitonin (0 - 0.5 ng/mL) < 0.05 Coagulation INR (0.8 - 1.2) 0.9 APTT (24 - 34 SECONDS) 45 Hematology WBC (4.5 - 11.5 K/uL) 9.8 RBC (4.00 - 5.20 M/uL) 4.24 Hgb (12.0 - 16.0 gm/dL) 13.4 Hct (36.0 - 46.0 %) 39.8 MCV (80 - 100 fL) 94 MCH (26 - 34 pg) 32 RDW (11.6 - 14.8 %) 14.1 Neut % (Auto) (50 - 75 %) 81.3 Lymph % (Auto) (25 - 40 %) 8.2 [place] % (Auto) (3 - 14 %) 9.4 Eos % (Auto) (0 - 4 %) 0.8 Baso % (Auto) (0 - 2 %) 0.3 Plt Count, EDTA (150 - 400 K/uL) 361 PUBS MCHC (31 - 37 g/dL) 34 Urines Urine Color YELLOW Urine Appearance SL CLOUDY Urine pH (5.0 - 8.0) 6.0 Ur Specific [place] (1.010 - 1.030) <= 1.005 Urine Protein (NEGATIVE) NEGATIVE Urine Ketones (NEGATIVE) NEGATIVE Urine Blood (NEGATIVE) TRACE-INTACT Urine Nitrite (NEGATIVE) NEGATIVE Urine Bilirubin (NEGATIVE) NEGATIVE Urine Urobilinogen (0.2 - 1.0 EU/dL) 0.2 Ur Leukocyte Esterase (NEGATIVE) TRACE Urine RBC (0 - 1 rbc/hpf) 1-3 Urine WBC (0 - 1 wbc/hpf) 10-15 Ur Epithelial Cells (0 - 5 EPI/hpf) NONE SEEN Urine Bacteria (NONE SEEN) MODERATE (2+ TO 3+) Urine Glucose (NEGATIVE) NEGATIVE Urine Comment CULTURE INDICATED Microbiology Date/Time Procedure - Status Source Growth 10/26 1440 Urine Culture - RECD URINE CC Imaging Abdomen/pelvis CT IMPRESSION: 1. Moderate to marked distention of distal small bowel loops consistent with bowel obstruction. 2. Status post right lower quadrant ileal loop diversion. No evidence of urinary tract obstruction. 3. Status post urinary cystectomy hysterectomy, and appendectomy (reportedly). 4. Marked calcified atheromatous change of the aorta. 5. Findings discussed with KOBI Pro. Dictated by: EMMY ANDINO MD D: SHOAIB;10/26/16 1726 Chest X-Ray IMPRESSION: 1. Chronic obstructive pulmonary disease. 2. Otherwise negative chest. Dictated by: EMMY ANDINO MD D: SHOAIB;10/26/16 1410 Assessment and Plan Problem List 1. Small bowel obstruction Status Acute Onset Date Unknown 2. Coronary artery disease 3. Essential hypertension 4. Tobacco use disorder 5. COPD (chronic obstructive pulmonary disease) Plan Current status: Fair, unstable Anticipated discharge date: Anticipated discharge 2-3 days Anticipated discharge placement: Home Patient care time: Time spent in chart review, patient interview, physical exam, CPOE, and care documentation: 70 minutes Visit to patient today: 1 Complexity of care: High E&M Codes Admission: Inpt-High/37277
--- NOTE | 2016-10-26 18:36 | Progress Note ---
E&M Codes Admission: Inpt-High/08117 Patient Name: Susie Reynolds Admission Date: October 26, 2016 Primary Care Provider: Roman Fulton D.O. Attending Physician: Gordo Conley M.D. Admitting Physician: Gordo Conley M.D. Code Status: No Code Room: [Room] SUBJECTIVE Historian: Patient Reliability: Fair Chief Complaint: Abdominal pain, nausea, vomiting, shortness of breath History of Present Illness: The patient is a 71-year-old white female with a significant past medical history of COPD, bladder carcinoma status post cystectomy/ileostomy, lung CA, hypertension, coronary artery disease, who presented to [facility] emergency department on the day of admission secondary to complaints of abdominal pain, nausea, vomiting, and shortness of breath. [facility] ER evaluation was consistent with small bowel obstruction and minor exacerbation of COPD. Secondary to the above, the patient was admitted by Gordo Conley M.D. for further evaluation and treatment. PAST MEDICAL HISTORY Illnesses: 1. COPD 2. Hypertension 3. Recurrent UTI 4. Lung CA-DEANNA 5. Bladder CA-status post cystectomy/urostomy-DEANNA 6. Coronary disease Allergies: 1. Iodinated contrast material Medications: 1. [Meds] Surgery: 1. Appendectomy 2. NICHOL-BSO 3. Urostomy 4. Tonsils and adenoidectomy 5. Injuries: 1. No significant Hospitalizations: 1. For above surgery and medical problems FAMILY HISTORY Parents: 1. Father, [status], 2. Mother, [status] Siblings: 1. [sibs] Children: 1. [children] Other significant family history: [other] SOCIAL HISTORY 1. Marital Status: [] 2. Sikhism: [pentecostalism] 3. Education: [ed] 4. Employment History: [work] 5. Occupational health exposures: [occupation] HABITS 1. Tobacco: [tobacco] 2. Drugs: [drugs] 3. Alcohol: [alcohol] 4. Caffeine: [caffeine] HEALTH SUPERVISION Item/Test 1. Vision screen: [vision] 2. Cholesterol Profile: [chol] 3. PSA: [PSA] 4. CHERELLE: [CHERELLE] 5. FOBT: [FOBT] 6. Blood Glucose: [GLU] 7. Colonoscopy: [colonoscopy] 8. History and physical exam: [H&P] 9. Audiogram: [Audiogram] 10. Mammogram: [Mammogram] 11. Pap/pelvic exam: [Pap/pelvic] IMMUNIZATIONS: 1. Pneumococcal: [pneumonia] 2. Influenza: [flu] 3. Tetanus: [tet] ADVANCED DIRECTIVES: 1. Living well: [Living well] 2. POLST: [POLST] 3. Code Status: [CODE STATUS] 4. Durable Power Window/Distribution Clerk Health care: [DPOA] 5. Donor card: [Donor card] REVIEW OF SYSTEMS Remarkable for those things stated in the history of present illness and past medical history. Seventeen point review of system completed with the following notable findings: [ROS] Physical Exam Vital Signs / I&Os Blood pressure: 131/78 mmHg Respiratory rate: 22 Heart rate: 84 Temperature: 98.4 Fahrenheit orally Pulse oximetry: 94% room air LAB Results Laboratory Tests 10/26 10/26 10/26 1440 1435 1435 Chemistry Plasma Sodium (136 - 145 mmol/L) 133 Plasma Potassium (3.5 - 5.1 mmol/L) 4.9 Plasma Chloride (98 - 107 mmol/L) 98 CO2 (Enzymatic) (21 - 32 mmol/L) 25 BUN (7 - 18 mg/dL) 16 Creatinine (0.6 - 1.3 mg/dL) 0.8 Est GFR ( Amer) (mL/min) >60 Est GFR (Non-Af Amer) (mL/min) >60 Glucose (70 - 110 mg/dL) 105 Plasma Calcium (8.5 - 10.1 mg/dL) 9.0 Plasma Magnesium (1.8 - 2.4 mg/dL) Cancelled 1.9 Total Bilirubin (0.0 - 1.0 mg/dL) 0.3 AST (15 - 37 U/L) 22 ALT (12 - 78 U/L) 21 Alkaline Phosphatase (46 - 116 U/L) 67 Creatine Kinase (24 - 260 U/L) 29 Troponin (0.00 - 1.5 ng/mL) <0.05 Total Protein (6.4 - 8.2 g/dL) 7.1 Albumin (3.3 - 5.0 g/dL) 3.5 Procalcitonin (0 - 0.5 ng/mL) < 0.05 Coagulation INR (0.8 - 1.2) 0.9 APTT (24 - 34 SECONDS) 45 Hematology WBC (4.5 - 11.5 K/uL) 9.8 RBC (4.00 - 5.20 M/uL) 4.24 Hgb (12.0 - 16.0 gm/dL) 13.4 Hct (36.0 - 46.0 %) 39.8 MCV (80 - 100 fL) 94 MCH (26 - 34 pg) 32 RDW (11.6 - 14.8 %) 14.1 Neut % (Auto) (50 - 75 %) 81.3 Lymph % (Auto) (25 - 40 %) 8.2 [place] % (Auto) (3 - 14 %) 9.4 Eos % (Auto) (0 - 4 %) 0.8 Baso % (Auto) (0 - 2 %) 0.3 Plt Count, EDTA (150 - 400 K/uL) 361 PUBS MCHC (31 - 37 g/dL) 34 Urines Urine Color YELLOW Urine Appearance SL CLOUDY Urine pH (5.0 - 8.0) 6.0 Ur Specific [place] (1.010 - 1.030) <= 1.005 Urine Protein (NEGATIVE) NEGATIVE Urine Ketones (NEGATIVE) NEGATIVE Urine Blood (NEGATIVE) TRACE-INTACT Urine Nitrite (NEGATIVE) NEGATIVE Urine Bilirubin (NEGATIVE) NEGATIVE Urine Urobilinogen (0.2 - 1.0 EU/dL) 0.2 Ur Leukocyte Esterase (NEGATIVE) TRACE Urine RBC (0 - 1 rbc/hpf) 1-3 Urine WBC (0 - 1 wbc/hpf) 10-15 Ur Epithelial Cells (0 - 5 EPI/hpf) NONE SEEN Urine Bacteria (NONE SEEN) MODERATE (2+ TO 3+) Urine Glucose (NEGATIVE) NEGATIVE Urine Comment CULTURE INDICATED Microbiology Date/Time Procedure - Status Source Growth 10/26 1440 Urine Culture - RECD URINE CC Imaging Abdomen/pelvis CT IMPRESSION: 1. Moderate to marked distention of distal small bowel loops consistent with bowel obstruction. 2. Status post right lower quadrant ileal loop diversion. No evidence of urinary tract obstruction. 3. Status post urinary cystectomy hysterectomy, and appendectomy (reportedly). 4. Marked calcified atheromatous change of the aorta. 5. Findings discussed with KOBI Pro. Dictated by: EMMY ANDINO MD D: SHOAIB;10/26/16 1726 Chest X-Ray IMPRESSION: 1. Chronic obstructive pulmonary disease. 2. Otherwise negative chest. Dictated by: EMMY ANDINO MD D: SHOAIB;10/26/16 1410 Assessment and Plan Problem List 1. Small bowel obstruction Status Acute Onset Date Unknown 2. Coronary artery disease 3. Essential hypertension 4. Tobacco use disorder 5. COPD (chronic obstructive pulmonary disease) Plan Current status: Fair, unstable Anticipated discharge date: Anticipated discharge 2-3 days Anticipated discharge placement: Home Patient care time: Time spent in chart review, patient interview, physical exam, CPOE, and care documentation: 70 minutes Visit to patient today: 1 Complexity of care: High E&M Codes Admission: Inpt-High/36876
[2016-10-26 20:52] VITALS: BP 131/79
--- NOTE | 2016-10-26 20:56 | ED MAR SUMMARY ---
..... Medication Administration Record [facility] [address] [place] [address] Patient: ELSY FIELDS Visit ID: [id number] 71y, F Weight: 39.9 kg Height/Length: 61 in BMI: 16.6 ALLERGIES: Bee Venom, CONTRAST DYE, Iodine Given 14:15 10/26/2016 Bernard Edwards, Medication Administered: ALBUTEROL [NEB TX], Dose: 1 unit dose Nebulizer Neb TX. Medication Ordered: Albuterol Neb Tx 2.5 mg (NOW). Given 15:18 10/26/2016 Doretha Padron R.N. Medication Administered: ZOFRAN [IVP] (ONDANSETRON HCL), Dose: 4 mg IVP over 1 minute(s), Site: #1 left AC. Medication Ordered: Zofran IV 8 mg (NOW). Given 15:44 10/26/2016 Doretha Padron R.N. Medication Administered: ZOFRAN [IVP] (ONDANSETRON HCL), Dose: 4 mg IVP over 1 minute(s), Site: #1 left AC. Medication Ordered: Zofran IV 8 mg (NOW). Start 16:10 10/26/2016 Doretha Padron R.N., Continued Upon Disposition 19:44 10/26/2016 Andra Cox R.N. Medication Administered: IV NS (SALINE), Dose: IV Fluids over 1 hour(s), Rate: 1000 mL/hr, Bolus: 250 mL over 15 minute(s), Dispensed: 1000 mL bag, Site: #1 left AC. Medication Ordered: IV NS : initial bolus 250 mL (1000 mL/hr), then 100 mL/hr for X1 (NOW); Yosef. Given 16:28 10/26/2016 Doretha Padron R.N. Medication Administered: PROTONIX 40MG [IVP] (PANTOPRAZOLE SODIUM), Dose: 40 mg IVP over 2 minute(s), Site: #1 left AC. Medication Ordered: Protonix IVP 40mg 40 mg (Mix in NS 10ml over 2min). Given 17:48 10/26/2016 Padron, Doretha, R.N. Medication Administered: DILAUDID [IVP] (HYDROMORPHONE HCL PF), Dose: 0.5 mg IVP over 1 minute(s), Site: #1 left AC. Medication Ordered: Dilaudid IV 0.5 mg (HIGH ALERT MEDICATION, NOW).
--- NOTE | 2016-10-26 20:56 | ED MED RECONCILIATION SUMMARY ---
Patient: ELSY FIELDS Medication Reconciliation Report [facility] VisitID: [id number] [address] [place] [address] 71y, F Registration Date/Time: 10/26/2016 Weight: 39.9 kg Height/Length: 61 in. BMI: 16.6 ALLERGIES: Bee Venom, CONTRAST DYE, Iodine The patient's Home Medications are listed below: THE FOLLOWING MEDICATIONS NEED TO BE RECONCILED: Advair Diskus Inhalation Albuterol Sulfate HFA Inhalation Albuterol-Ipratropium Inhalation Calcitonin ([place]) Nasal Carvedilol Phosphate ER Oral 3.125 mg , bid Epinephrine Injection Ferrous Sulfate Oral OxyCODONE HCl Oral (5 mg) 1/2 tablet- 1 tablet, 3x a day TiZANidine HCl Oral (2 mg) 1 tablet, 2x a day Vitamins/Minerals Oral The source(s) of the original Home Medication information: Not obtained. The following Medications were given to the patient in the Emergency Department: Albuterol [Neb Tx] Neb TX 1 unit dose, administered: 10/26/2016 2:15:00 PM Zofran [IVP] IVP 4 mg, administered: 10/26/2016 3:18:00 PM Zofran [IVP] IVP 4 mg, administered: 10/26/2016 3:44:00 PM IV NS IV Fluids bolus 250 mL over 15 minute(s), then 1000 mL/hr, administered: 10/26/2016 4:10:00 PM PROTONIX 40MG [IVP] IVP 40 mg, administered: 10/26/2016 4:28:00 PM Dilaudid [IVP] IVP 0.5 mg, administered: 10/26/2016 5:48:00 PM The following Medications were prescribed to the patient: None.
--- NOTE | 2016-10-26 20:56 | ED DISCHARGE INSTRUCTIONS ---
Patient: ELSY FIELDS General Instructions [facility] VisitID: [id number] [address] [place] [address] 71y, F Registration Date/Time: 10/26/2016 Essential hypertension. SBO COPD exacerbation. (Electronically signed by Swapna Tavarez P.A.-C 10/26/2016 18:59)
--- NOTE | 2016-10-26 20:56 | ED DISCHARGE INSTRUCTIONS ---
Patient: ELSY FIELDS General Instructions [facility] VisitID: [id number] [address] [place] [address] 71y, F Registration Date/Time: 10/26/2016 Essential hypertension. SBO COPD exacerbation. (Electronically signed by Swapna Tavarez P.A.-C 10/26/2016 18:59)
--- NOTE | 2016-10-26 20:56 | ED MED RECONCILIATION SUMMARY ---
Patient: ELSY FIELDS Medication Reconciliation Report [facility] VisitID: [id number] [address] [place] [address] 71y, F Registration Date/Time: 10/26/2016 Weight: 39.9 kg Height/Length: 61 in. BMI: 16.6 ALLERGIES: Bee Venom, CONTRAST DYE, Iodine The patient's Home Medications are listed below: THE FOLLOWING MEDICATIONS NEED TO BE RECONCILED: Advair Diskus Inhalation Albuterol Sulfate HFA Inhalation Albuterol-Ipratropium Inhalation Calcitonin ([place]) Nasal Carvedilol Phosphate ER Oral 3.125 mg , bid Epinephrine Injection Ferrous Sulfate Oral OxyCODONE HCl Oral (5 mg) 1/2 tablet- 1 tablet, 3x a day TiZANidine HCl Oral (2 mg) 1 tablet, 2x a day Vitamins/Minerals Oral The source(s) of the original Home Medication information: Not obtained. The following Medications were given to the patient in the Emergency Department: Albuterol [Neb Tx] Neb TX 1 unit dose, administered: 10/26/2016 2:15:00 PM Zofran [IVP] IVP 4 mg, administered: 10/26/2016 3:18:00 PM Zofran [IVP] IVP 4 mg, administered: 10/26/2016 3:44:00 PM IV NS IV Fluids bolus 250 mL over 15 minute(s), then 1000 mL/hr, administered: 10/26/2016 4:10:00 PM PROTONIX 40MG [IVP] IVP 40 mg, administered: 10/26/2016 4:28:00 PM Dilaudid [IVP] IVP 0.5 mg, administered: 10/26/2016 5:48:00 PM The following Medications were prescribed to the patient: None.
--- NOTE | 2016-10-26 20:56 | ED MAR SUMMARY ---
..... Medication Administration Record [facility] [address] [place] [address] Patient: ELSY FIELDS Visit ID: [id number] 71y, F Weight: 39.9 kg Height/Length: 61 in BMI: 16.6 ALLERGIES: Bee Venom, CONTRAST DYE, Iodine Given 14:15 10/26/2016 Bernard Edwards, Medication Administered: ALBUTEROL [NEB TX], Dose: 1 unit dose Nebulizer Neb TX. Medication Ordered: Albuterol Neb Tx 2.5 mg (NOW). Given 15:18 10/26/2016 Doretha Padron R.N. Medication Administered: ZOFRAN [IVP] (ONDANSETRON HCL), Dose: 4 mg IVP over 1 minute(s), Site: #1 left AC. Medication Ordered: Zofran IV 8 mg (NOW). Given 15:44 10/26/2016 Doretha Padron R.N. Medication Administered: ZOFRAN [IVP] (ONDANSETRON HCL), Dose: 4 mg IVP over 1 minute(s), Site: #1 left AC. Medication Ordered: Zofran IV 8 mg (NOW). Start 16:10 10/26/2016 Doretha Padron R.N., Continued Upon Disposition 19:44 10/26/2016 Andra Cox R.N. Medication Administered: IV NS (SALINE), Dose: IV Fluids over 1 hour(s), Rate: 1000 mL/hr, Bolus: 250 mL over 15 minute(s), Dispensed: 1000 mL bag, Site: #1 left AC. Medication Ordered: IV NS : initial bolus 250 mL (1000 mL/hr), then 100 mL/hr for X1 (NOW); Yosef. Given 16:28 10/26/2016 Doretha Padron R.N. Medication Administered: PROTONIX 40MG [IVP] (PANTOPRAZOLE SODIUM), Dose: 40 mg IVP over 2 minute(s), Site: #1 left AC. Medication Ordered: Protonix IVP 40mg 40 mg (Mix in NS 10ml over 2min). Given 17:48 10/26/2016 Padron, Doretha, R.N. Medication Administered: DILAUDID [IVP] (HYDROMORPHONE HCL PF), Dose: 0.5 mg IVP over 1 minute(s), Site: #1 left AC. Medication Ordered: Dilaudid IV 0.5 mg (HIGH ALERT MEDICATION, NOW).
--- NOTE | 2016-10-26 22:32 | HISTORY AND PHYSICAL ---
ADMITTED: 10/26/2016 CHIEF COMPLAINT: 1. The patient is a 71-year-old female with a chief complaint of nausea, vomiting, and abdominal pain. HISTORY OF PRESENT ILLNESS: The patient reports some nausea and dry heaving for the past 24 hours. She also has been having episodes of intermittent constipation for which she takes laxatives. She had a small bowel movement this morning, but stools were very small and pellet-like in size. She also reported some epigastric discomfort associated with her episodes of nausea. The patient was seen in the emergency department where CT of the abdomen showed evidence of bowel obstruction. An NG tube was inserted and the patient was advised admission for further treatment. MEDICAL/SURGICAL HISTORY: Past medical history is pertinent for history of prior lung cancer diagnosed in 2013, which was treated with radiation and chemotherapy. She also had bladder cancer diagnosed in 2011, for which she underwent a radical cystectomy with ileal conduit. She also had a total abdominal hysterectomy with bilateral salpingo- oophorectomy and bilateral node dissection. She has a history of COPD, history of hypertension, history of previous ID and coronary artery disease, history of prior urinary tract infections, history of oral thrush. Past surgeries include the appendectomy, hysterectomy, tonsillectomy, radical cystectomy with ileal conduit. MEDICATIONS: Her current medications include the followin. Advair 250/50 one puff twice daily. 2. DuoNeb inhalers. 3. Calcitonin nasal spray. 4. Carvedilol 3.125 b.i.d. 5. Oxycodone 5 mg 1/2 to 1 tablet 3 times daily. 6. Tizanidine 2 mg 1 tablet twice daily. ALLERGIES: INCLUDE: 1. IV CONTRAST. 2. IODINE. 3. BEES/BEE VENOM. 4. PREVIOUS CHARTS INDICATES A HISTORY OF ALLERGY TO ERYTHROMYCIN, BUT THE PATIENT CURRENTLY DENIES HISTORY TO ERYTHROMYCIN. SOCIAL HISTORY: She is single. She lives in her own home, but her daughter lives nearby. She is a [employer]. She completed high school. She smoked about 50 years, 1/4 to 1/2 pack per day. She still occasionally has a puff of a cigarette once or twice a week. Alcohol intake is rare on a social basis. She has used marijuana in the past, but no other recreational drugs. She drinks 1 cup of coffee a day. CODE STATUS IS A DNR. FAMILY HISTORY: Includes a history of heart attack in the father. Mother of old age. Cirrhosis of the liver in brother. Cancer of the lung in another brother. PRIMARY CARE PHYSICIAN: Dr. Fulton in [facility], [place]. REVIEW OF SYSTEMS: She denies having any chest pain. No palpitations. No PND or orthopnea. She has an intermittent cough, intermittent shortness of breath from her COPD. She denies having any hematemesis, melena, or hematochezia. She has had decreased p.o. intake the past 6 weeks ever since some of her teeth were pulled. She denies having any leg edema. No joint pains. No fever or chills. PHYSICAL EXAMINATION: GENERAL: Shows a well-developed, fairly nourished female who is not in any form of cardiopulmonary distress. VITAL SIGNS: Current blood pressure is 132/88, heart rate 85, respirations 18, O2 saturations 95% on room air. Her weight is 39.9 kg. HEENT: She is normocephalic with pink conjunctivae. Anicteric. Pupils are reactive. Moist oral mucosa. No JVD. No bruits. No evidence of thrush, but the patient has been treated for her oral thrush for a few days with nystatin. She has an NG tube in place. No cervical adenopathy. LUNGS: Good air entry bilaterally without any rales, wheezes, or rhonchi. She has prolonged expirations. CARDIOVASCULAR: Regular rate and rhythm. S1, S2 normal. No S3, no S4. No gallops or murmurs. ABDOMEN: Soft. There is tenderness in the epigastric area. She has a urostomy in the right lower quadrant. She has a small ventral hernia around the scar. Hypoactive bowel sounds noted. BACK: No CVA tenderness. No cervical or inguinal adenopathy. EXTREMITIES: No edema or cyanosis. Full peripheral pulses. NEUROLOGIC: No lateralizing signs. LAB/IMAGING: Her labs include an INR of 0.9. Hemoglobin is 13.4, hematocrit 39.8 , MCV of 94, WBC of 9.8, neutrophils of 81.3, lymphocytes 8.2. Sodium is 133, potassium 4.9, chloride 98, CO2 25, BUN of 16, creatinine 0.8, glucose 105, calcium 9, total bilirubin 0.3. LFTs normal. CPK 29, troponin less than 0.05. Total protein 7.1, albumin 3.5. Procalcitonin is less than 0.05. INR is 0.9. UA: Urine color is yellow, specific gravity is 1.005 , WBC 10-15 with +2 to 3 bacteria, glucose is negative. Imaging studies included CT of the abdomen that showed moderate to marked distention of the distal small bowel loops consistent with bowel obstruction. No evidence of urinary tract obstruction. She has a right lower quadrant ileal loop diversion, marked calcification of the aorta. Chest x-ray is consistent with COPD; otherwise, negative chest. EKG shows normal sinus rhythm, possible left atrial enlargement, old anterior septal infarct. IMPRESSION: 1. Small-bowel obstruction. 2. Possible urinary tract infection. 3. History of oral thrush, currently treated. 4. History of hypertension. 5. History of coronary artery disease. 6. History of chronic obstructive pulmonary disease. PLAN: Will admit to observation. Will hydrate the patient and continue the NG tube attached to low intermittent suction. Check TSH level in am. We will consult Surgery. I will empirically place the patient on Rocephin 1 g daily while awaiting urine culture results. We will resume her nebulizers and inhalers. I will also continue nystatin for oral thrush. Hold coreg while patient is NPO. Will monitor blood pressure and give PRN nitroglycerin paste for sbp > 180. Will give sq heparin for dvt prophylaxis. Plan of care discussed with the patient. She agreed and verbalized understanding.
--- NOTE | 2016-10-26 23:19 | DIAGNOSTIC IMAGING REPORT ---
PROCEDURE: XR CHEST 1 VIEW INDICATION: Follow-up NG tube placement. TECHNIQUE: Portable AP view (2240 hours). COMPARISON: Compared to chest x-ray earlier in the day (11/05/2016, 1500 hours). FINDINGS: Placement of NG tube which ends in the distal stomach. Chronic obstructive pulmonary disease. Lungs are clear. Heart and mediastinum are normal. Thorax is normal. IMPRESSION: 1. Placement of NG tube in satisfactory position (distal stomach). 2. Chronic obstructive pulmonary disease.
[2016-10-27 04:28] VITALS: BP 142/83
[2016-10-27 06:12] VITALS: BP 149/88
--- NOTE | 2016-10-27 07:40 | Progress Note ---
Subjective General Note Date: October 27, 2016 Admission Date: October 26, 2016 Hospital Day: 2 PCP: Roman Fulton D.O. Status: Inpatient Advanced Directive: No Code Room: 203-B Brief History: The patient is a 71-year-old white female with a significant past make a history of COPD, lung cancer, bladder cancer status post cystectomy, hypertension who presented to [facility] emergency room on the day of admission secondary to complaints of abdominal pain nausea and vomiting. Evaluation at that time was consistent with small bowel obstruction. Secondary to the above, the patient was admitted by Yossi Page M.D. for further evaluation and treatment For other history present illness, past medical history, family history, social history, review of systems, and admission physical examination please see the patient's history and physical examination and ER visit note in the patient's medical record. Subjective: The patient states she has persistent abdominal discomfort essentially unchanged from chest. Nausea control. No vomiting. NG remains in place Patient requests: None Medications and Allergies Medications Current Medications Sig/Marlene Start time Last Medication Dose Route Stop Time Status Admin Clotrimazole 10 MG 5XD 10/27 1000 UNV PO Heparin Sodium 5,000 UNITS BID 10/27 0900 AC (Porcine) SC Nicotine 7 MG QAM 10/26 2330 AC 10/26 TOP 2322 Ceftriaxone Sodium/ 50 ML Q24H 10/26 2100 AC 10/26 Dextrose IV 2135 Lidocaine 15 ML Q4H PRN 10/26 204 AC 10/27 PO 0440 Nitroglycerin 0.5 GM Q6HR PRN 10/26 204 AC TOP Fluticasone/ See Dose RTBID 10/26 2028 AC Salmeterol Insts (1) IN Albuterol/Ipratropium 3 ML RTQ6H PRN 10/26 2014 AC 10/26 IN 2145 Sodium Chloride 1,000 ML ASDIRECTED 10/26 2014 AC 10/27 IV 0126 Morphine Sulfate See Dose Q4H PRN 10/26 1730 AC 10/27 Insts (2) IV 0439 Ondansetron HCl 4 MG Q8H PRN 10/26 1730 AC 10/26 IV 2255 Dose Instructions: (1)Fluticasone/Salmeterol: 1 CLICK (2)Morphine Sulfate: 2 - 4 MG Allergies Coded Allergies: Bee Venom (Severe, ANAPHYLAXIS 10/27/16) Iodinated Diagnostic Agents (Severe, SHORTNESS OF BREATH 10/27/16) Physical Exam Vital Signs / I&Os Vital Signs Date Time Temp Pulse Resp B/P Pulse O2 O2 Flow FiO2 Ox Delivery Rate 10/28 611 98.6 74 18 149/88 100 Nasal 2.0 Cannula 10/27 0428 98.2 86 18 142/83 96 Nasal 2.0 Cannula 10/26 2206 2.0 10/27 2051 98.2 88 20 131/79 95 Nasal 2.0 Cannula 10/26 2044 Nasal 2.0 Cannula I&O 10/27 0000 10/26 1600 10/26 0800 Intake Total 0 Output Total 100 Balance -100 General Appearance Alert, Oriented X3, Cooperative, No acute distress Lungs Decreased air movement bilaterally. Scattered rhonchi. Minimal expiratory wheezes Cardiovascular Regular rate and rhythm, Normal S1 and S2 Abdomen Normal bowel sounds, Soft, mild diffuse tenderness. Ileal conduit present Extremities No cyanosis, No clubbing, No edema Neurological Cranial nerves intact, No lateralizing signs Psych/Mental Status Mental status normal, Mood normal LAB Results Laboratory Tests 10/27 10/26 10/26 0520 1440 1435 Chemistry Plasma Sodium (136 - 145 mmol/L) 139 Plasma Potassium (3.5 - 5.1 mmol/L) 4.4 Plasma Chloride (98 - 107 mmol/L) 106 CO2 (Enzymatic) (21 - 32 mmol/L) 24 BUN (7 - 18 mg/dL) 11 Creatinine (0.6 - 1.3 mg/dL) 0.7 Est GFR ( Amer) (mL/min) >60 Est GFR (Non-Af Amer) (mL/min) >60 Glucose (70 - 110 mg/dL) 91 Plasma Calcium (8.5 - 10.1 mg/dL) 8.3 Plasma Magnesium (1.8 - 2.4 mg/dL) 1.8 Cancelled Procalcitonin (0 - 0.5 ng/mL) < 0.05 TSH 3rd Generation (0.30 - 3.74 uIU/mL) 1.888 Hematology WBC (4.5 - 11.5 K/uL) 4.4 RBC (4.00 - 5.20 M/uL) 3.64 Hgb (12.0 - 16.0 gm/dL) 11.3 Hct (36.0 - 46.0 %) 34.2 MCV (80 - 100 fL) 94 MCH (26 - 34 pg) 31 RDW (11.6 - 14.8 %) 13.8 Neut % (Auto) (50 - 75 %) 62.0 Lymph % (Auto) (25 - 40 %) 19.2 [place] % (Auto) (3 - 14 %) 17.2 Eos % (Auto) (0 - 4 %) 1.3 Baso % (Auto) (0 - 2 %) 0.3 Plt Count, EDTA (150 - 400 K/uL) 314 PUBS MCHC (31 - 37 g/dL) 33 Urines Urine Color YELLOW Urine Appearance SL CLOUDY Urine pH (5.0 - 8.0) 6.0 Ur Specific [place] (1.010 - 1.030) <= 1.005 Urine Protein (NEGATIVE) NEGATIVE Urine Ketones (NEGATIVE) NEGATIVE Urine Blood (NEGATIVE) TRACE-INTACT Urine Nitrite (NEGATIVE) NEGATIVE Urine Bilirubin (NEGATIVE) NEGATIVE Urine Urobilinogen (0.2 - 1.0 EU/dL) 0.2 Ur Leukocyte Esterase (NEGATIVE) TRACE Urine RBC (0 - 1 rbc/hpf) 1-3 Urine WBC (0 - 1 wbc/hpf) 10-15 Ur Epithelial Cells (0 - 5 EPI/hpf) NONE SEEN Urine Bacteria (NONE SEEN) MODERATE (2+ TO 3+) Urine Glucose (NEGATIVE) NEGATIVE Urine Comment CULTURE INDICATED 10/26 1435 Chemistry Plasma Sodium (136 - 145 mmol/L) 133 Plasma Potassium (3.5 - 5.1 mmol/L) 4.9 Plasma Chloride (98 - 107 mmol/L) 98 CO2 (Enzymatic) (21 - 32 mmol/L) 25 BUN (7 - 18 mg/dL) 16 Creatinine (0.6 - 1.3 mg/dL) 0.8 Est GFR ( Amer) (mL/min) >60 Est GFR (Non-Af Amer) (mL/min) >60 Glucose (70 - 110 mg/dL) 105 Plasma Calcium (8.5 - 10.1 mg/dL) 9.0 Plasma Magnesium (1.8 - 2.4 mg/dL) 1.9 Total Bilirubin (0.0 - 1.0 mg/dL) 0.3 AST (15 - 37 U/L) 22 ALT (12 - 78 U/L) 21 Alkaline Phosphatase (46 - 116 U/L) 67 Creatine Kinase (24 - 260 U/L) 29 Troponin (0.00 - 1.5 ng/mL) <0.05 Total Protein (6.4 - 8.2 g/dL) 7.1 Albumin (3.3 - 5.0 g/dL) 3.5 Coagulation INR (0.8 - 1.2) 0.9 APTT (24 - 34 SECONDS) 45 Hematology WBC (4.5 - 11.5 K/uL) 9.8 RBC (4.00 - 5.20 M/uL) 4.24 Hgb (12.0 - 16.0 gm/dL) 13.4 Hct (36.0 - 46.0 %) 39.8 MCV (80 - 100 fL) 94 MCH (26 - 34 pg) 32 RDW (11.6 - 14.8 %) 14.1 Neut % (Auto) (50 - 75 %) 81.3 Lymph % (Auto) (25 - 40 %) 8.2 [place] % (Auto) (3 - 14 %) 9.4 Eos % (Auto) (0 - 4 %) 0.8 Baso % (Auto) (0 - 2 %) 0.3 Plt Count, EDTA (150 - 400 K/uL) 361 PUBS MCHC (31 - 37 g/dL) 34 Microbiology Date/Time Procedure - Status Source Growth 10/26 1440 Urine Culture - RECD URINE CC Assessment and Plan Problem List 1. Small bowel obstruction Status Acute Onset Date Unknown Plan -Patient presents with findings of small bowel obstruction -Decompression with NG drainage -Surgical consultation-Dr. Williamson -IV fluid therapy, pain meds, antiemetics -Monitor 2. Essential hypertension Plan -Blood pressure adequately controlled -BP 142/83 mmHg -Monitor 3. Tobacco use disorder Plan -Patient with history of tobacco use disorder/nicotine dependence -NicoDerm patch as needed -Smoking cessation education -Encourage smoking abstinence post discharge -Monitor 4. COPD (chronic obstructive pulmonary disease) Plan -Patient with history of O2 dependent COPD -Continue DuoNeb, albuterol, Advair Diskus -Supplemental oxygen as necessary -Consider corticosteroids for persistent bronchospasm -Monitor 5. UTI (urinary tract infection) Plan -Patient with urinary sediment suggestive of UTI -Patient started by admitting physician on Rocephin -Urinary sediment most likely related to ileal conduit, no evidence of significant UTI at this time -Monitor Current status: Fair, unchanged Anticipated discharge date: Anticipated discharge 2-3 days Anticipated discharge placement: Home Patient care time: Time spent in chart review, patient interview, physical exam, CPOE, and care documentation: 25 minutes Visit to patient today: 1 Complexity of care: Moderate E&M Codes Rounding: Inpt-Moderate/[id number]
[2016-10-27] MEDS ORDERED: IPRATROPIUM BROMIDE/ IN (07:41)
[2016-10-27] MEDS ORDERED: SPIRIVA18 MCG INH (07:42)
[2016-10-27] MEDS ORDERED: ALBUTEROL HFA60 DOSE IN (07:43)
[2016-10-27] MEDS ORDERED: CLOTRIMAZOLE10 MG PO (07:44)
[2016-10-27] MEDS ORDERED: NICOTINE T7 MG/24 HR TOP (07:46)
[2016-10-27 10:46] VITALS: BP 138/73
[2016-10-27 14:30] VITALS: BP 150/84
[2016-10-27 18:15] VITALS: BP 141/81
[2016-10-27 23:17] VITALS: BP 141/96
[2016-10-28 02:31] VITALS: BP 121/72
--- NOTE | 2016-10-28 02:34 | CONSULTATION REPORT ---
DATE OF CONSULTATION: 10/27/2016 CHIEF COMPLAINT: 1. Nausea, vomiting, abdominal pain HISTORY OF PRESENT ILLNESS: The patient is a 71-year-old woman who presents to the hospital with a 1-day history of recurrent nausea, vomiting and dry heaves. She reports having had intermittent constipation and has been taking laxatives and had some hard bowel movements leading into this. The patient also reports that she had a bladder cancer removed with a radical cystectomy in 2011 with ileal conduit. She reports that following this, she had ongoing nausea and vomiting and was told she had a bowel obstruction for about a month after the procedure. She reports nonsurgical management used and eventually she was able to pass bowel movements and go home. The patient additionally had treatment of lung cancer in 2013 with radiation and chemotherapy. None of the radiation involved her abdominal cavity that she knows of. MEDICAL/SURGICAL HISTORY: Medical history includes COPD, hypertension, myocardial infarction, coronary artery disease, recurrent urinary tract infections and oral thrush. Additional surgery in the past is a total abdominal hysterectomy/bilateral salpingo-oophorectomy with bilateral lymph node dissection. Additional surgeries include appendectomy, tonsillectomy. MEDICATIONS: 1. Advair 250/50 one puff every day. 2. DuoNeb inhalers. 3. Calcitonin nasal spray. 4. Carvedilol 3.125 mg b.i.d. 5. Oxycodone 2.5-5 mg p.o. t.i.d. 6. Tizanidine 2 mg p.o. b.i.d. ALLERGIES: 1. IV CONTRAST. 2. BEE STINGS. 3. POSSIBLY ERYTHROMYCIN. SOCIAL HISTORY: The patient is single and lives near the hospital. She has smoked for about 50 years, 1/4-1/2 pack per day, and occasionally has a puff of a cigarette now days only once or twice a week. She rarely takes alcohol. CODE STATUS: SHE IS CURRENTLY LISTED A DO NOT RESUSCITATE. FAMILY HISTORY: Heart attack in her father. Mother at an advanced age. Her brother had cirrhosis of liver. Another brother had cancer of the lung. REVIEW OF SYSTEMS: A multipoint review of systems was obtained on 10/26/[address] Page during admission and was reviewed at this time. PHYSICAL EXAMINATION: VITAL SIGNS: Her most recent temperature is 97.9, pulse 74, respirations 18, blood pressure 150/84, and 97% O2 saturation. GENERAL: The patient is slender. She is alert and cooperative. She has some difficulty hearing, requiring louder speech. HEENT: Her ears and nose did not demonstrate external lesions. Eyes are equal. There is no icterus. Neck is without palpable masses or thyromegaly. There is no bruit. She has a nasogastric tube in place, which produced 60 mL the first day and 0 mL so far today. There is a biliary tinge to the secretions in the suction container. CHEST: Clear to auscultation. HEART: Regular, without murmur or gallop. ABDOMEN: Reveals mild tympany but no obvious gross distention. There are no areas of localized tenderness. She has a right paramedian ileal conduit with flow of urine coming from it. I did not detect any large hernia, but she does have a small ventral hernia near the scar which is nontender and without strangulated bowel. Bowel sounds are active. LAB/IMAGING: Lab tests demonstrated a white count of 9.8 with a repeat today of 4.4, hemoglobin and hematocrit today of 11.3 and 34.2. Her chemistries are normal electrolytes. Chest x-ray shows chronic obstructive pulmonary disease. Her abdominal and pelvic CT shows fluid distention of small bowel consistent with small-bowel obstruction. IMPRESSION: 1. Small-bowel obstruction, most likely secondary to postoperative adhesions. 2. History of bladder cancer, ileal conduit, and multiple abdominal operations. 3. Chronic obstructive pulmonary disease. 4. History of lung cancer. PLAN: I recommended we give a Fleets enema to ensure that she clears any remaining stool in her colon. She vented with a nasogastric tube and at some point in the near future, we may choose to do a Gastrografin study to determine the nature of her obstruction. This patient has numerous reasons to avoid surgery due to comorbidities and numerous surgeries; however, if a persistent complete mechanical bowel obstruction winds up being the problem, then surgery may be the only option for her at that point.
[2016-10-28 06:18] VITALS: BP 159/97
[2016-10-28 10:35] VITALS: BP 133/69
--- NOTE | 2016-10-28 12:18 | Progress Note ---
Subjective General No complaints, feels like she will pass gas but hasn't. No pain. Physical Exam Vital Signs / I&Os Vital Signs Date Time Temp Pulse Resp B/P Pulse O2 O2 Flow FiO2 Ox Delivery Rate 10/28 1035 98.1 80 16 133/69 95 Nasal 2.0 Cannula 10/28 0618 97.9 80 18 159/97 99 Nasal 2.0 Cannula 10/28 0259 2.0 10/28 0231 98.2 83 18 121/72 95 Nasal 2.0 Cannula 10/27 2317 97.9 104 18 141/96 94 Nasal 2.0 Cannula 10/27 2048 2.0 10/27 1815 98.4 83 18 141/81 97 Nasal 2.0 Cannula 10/27 1652 2.0 10/27 1430 97.9 74 18 150/84 97 Nasal 2.0 Cannula I&O 10/27 0800 10/27 1600 10/28 0000 Intake Total 932 786 0 Output Total 318 703 4015 Balance 547 486 -1100 General Appearance Alert, Oriented X3, Cooperative, No acute distress Abdomen Normal bowel sounds, Soft, No tenderness Assessment and Plan Problem List 1. Small bowel obstruction Status Acute Onset Date Unknown Plan Hope to get small bowel follow through but she reports and Iodine allergy. I will ask the radiologist to give an opinion, maybe we can pre treat with prednisone and benadryl.
--- NOTE | 2016-10-28 12:18 | Progress Note ---
Subjective General No complaints, feels like she will pass gas but hasn't. No pain. Physical Exam Vital Signs / I&Os Vital Signs Date Time Temp Pulse Resp B/P Pulse O2 O2 Flow FiO2 Ox Delivery Rate 10/28 1035 98.1 80 16 133/69 95 Nasal 2.0 Cannula 10/28 0618 97.9 80 18 159/97 99 Nasal 2.0 Cannula 10/28 0259 2.0 10/28 0231 98.2 83 18 121/72 95 Nasal 2.0 Cannula 10/27 2317 97.9 104 18 141/96 94 Nasal 2.0 Cannula 10/27 2048 2.0 10/27 1815 98.4 83 18 141/81 97 Nasal 2.0 Cannula 10/27 1652 2.0 10/27 1430 97.9 74 18 150/84 97 Nasal 2.0 Cannula I&O 10/27 0800 10/27 1600 10/28 0000 Intake Total 932 786 0 Output Total 552 677 9851 Balance 547 486 -1100 General Appearance Alert, Oriented X3, Cooperative, No acute distress Abdomen Normal bowel sounds, Soft, No tenderness Assessment and Plan Problem List 1. Small bowel obstruction Status Acute Onset Date Unknown Plan Hope to get small bowel follow through but she reports and Iodine allergy. I will ask the radiologist to give an opinion, maybe we can pre treat with prednisone and benadryl.
--- NOTE | 2016-10-28 14:25 | DIAGNOSTIC IMAGING REPORT ---
PROCEDURE: XR ABDOMEN 2 VIEWS INDICATION: sbo, check position of nasogastric tube. TECHNIQUE: Two views of the abdomen were acquired COMPARISON: 10/26/2016 FINDINGS: There is a nasogastric tube now in position. The tip and side-hole are in the left upper quadrant. The tip is directed towards the right. No free intraperitoneal air. There are dilated small bowel loops in the left and the low midline abdomen. Air fluid levels are present. Trace air and air fluid level in the descending colon. There is a right lower quadrant ostomy appliance. Surgical clips scattered over the pelvis. Right low pelvis staple ring of bowel anastomoses. Hyperinflated lung bases. Demineralized, but grossly intact osseous structures. IMPRESSION: 1. Nasogastric tube within the stomach with the tip directed towards the gastric outlet. 2. Dilated small bowel loops with air fluid levels with similar caliber compared to the prior study. Bowel obstruction. 3. Surgical as described.
--- NOTE | 2016-10-28 16:46 | Progress Note ---
Subjective General Pt seen and examined. Patient has no complaints at the moment except for the irritiation coming from the ng tube. Patient is otherwise stable. Constitutional Denies: Fever, Chills, Sweats, Weakness, Malaise, Other. Eyes Denies: Pain, Vision Change, Conjunctival Inflammation, Eyelid Inflammation, Redness, Other. ENT Other (hearing loss ). Respiratory Denies: Cough, Dry, SOB w/exertion, Wheezing, Hemoptysis, Pleuritic Pain, Sputum , Other. Cardiovascular Denies: Chest Pain, Palpitations, Orthopnea, PND, Edema, Light-headedness, Other. Gastrointestinal Denies: Nausea, Vomiting, Abdominal Pain, Diarrhea, Constipation, Melena, Hematochezia, Other. Genitourinary Denies: Dysuria, Frequency, Incontinence, Hematuria, Retention, Other. Musculoskeletal Denies: Neck Pain, Shoulder Pain, Arm Pain, Back Pain, Hand Pain, Leg Pain, Foot Pain, Other. Skin Denies: Rash, Lesions, Jaundice, Bruising, Other. Neurological Denies: Weakness, Numbness, Incoordination, Change in speech, Confusion, Seizures, Other. Physical Exam Vital Signs / I&Os Vital Signs Date Time Temp Pulse Resp B/P Pulse O2 O2 Flow FiO2 Ox Delivery Rate 10/28 1035 98.1 80 16 133/69 95 Nasal 2.0 Cannula 04/ 0618 97.9 80 18 159/97 99 Nasal 2.0 Cannula / 0259 2.0 04 0231 98.2 83 18 121/72 95 Nasal 2.0 Cannula 04/ 2317 97.9 104 18 141/96 94 Nasal 2.0 Cannula / 2048 2.0 04/ 1815 98.4 83 18 141/81 97 Nasal 2.0 Cannula 04/03 1652 2.0 I&O 04/ 0800 04/03 1600 04/04 0000 Intake Total 932 786 0 Output Total 319 752 6628 Balance 547 486 -1100 General Appearance Alert, Oriented X3, No acute distress HEENT Normal exam, Atraumatic, EOMI, Moist mucous membranes Lungs Clear to auscultation, Normal air movement Neck Supple, No JVD, No thyromegaly Cardiovascular Normal S1 and S2, No murmurs, gallops, rubs Abdomen Soft, No tenderness, No guarding, No rebound, No masses, No hepatosplenomegaly Extremities No cyanosis, No clubbing, No edema, Normal pulses Skin No Breakdown, No Significant Lesions Neurological Normal speech, Normal tone, Sensation intact, Cranial nerves intact , Strength 5/5 x4 ext's, No lateralizing signs LAB Results Laboratory Tests 10/28 0540 Chemistry Plasma Sodium (136 - 145 mmol/L) 139 Plasma Potassium (3.5 - 5.1 mmol/L) 4.5 Plasma Chloride (98 - 107 mmol/L) 104 CO2 (Enzymatic) (21 - 32 mmol/L) 23 BUN (7 - 18 mg/dL) 7 Creatinine (0.6 - 1.3 mg/dL) 0.5 Est GFR ( Amer) (mL/min) >60 Est GFR (Non-Af Amer) (mL/min) >60 Glucose (70 - 110 mg/dL) 61 Plasma Calcium (8.5 - 10.1 mg/dL) 8.1 Hematology WBC (4.5 - 11.5 K/uL) 5.4 RBC (4.00 - 5.20 M/uL) 3.55 Hgb (12.0 - 16.0 gm/dL) 10.9 Hct (36.0 - 46.0 %) 33.1 MCV (80 - 100 fL) 93 MCH (26 - 34 pg) 31 RDW (11.6 - 14.8 %) 14.4 Neut % (Auto) (50 - 75 %) 73.3 Lymph % (Auto) (25 - 40 %) 10.3 [place] % (Auto) (3 - 14 %) 13.6 Eos % (Auto) (0 - 4 %) 2.7 Baso % (Auto) (0 - 2 %) 0.1 Plt Count, EDTA (150 - 400 K/uL) 312 PUBS MCHC (31 - 37 g/dL) 33 Assessment and Plan Problem List 1. Small bowel obstruction Status Acute Onset Date Unknown Plan - small bowel follow through was attempted today - due to patients anxiety and hearing difficulty pt was unable to complete the test - pt is refusing to have another one performed - will await return of bowel function - if patient does not have any return of bowel function in the next 2 days will reconvene with surgery 2. COPD (chronic obstructive pulmonary disease) Plan - currently stable - no breathing difficulties noted - will c/w advair, and duonebs - will monitor daily 3. UTI (urinary tract infection) Plan - pt has a urostomy bag - pt may be colonized currently - will complete course of ceftriaxone
[2016-10-28 17:52] VITALS: BP 140/75
[2016-10-28 23:12] VITALS: BP 147/83
[2016-10-29 03:19] VITALS: BP 152/83
[2016-10-29 06:56] VITALS: BP 146/73
--- NOTE | 2016-10-29 07:34 | Progress Note ---
Subjective General Pt. feels fine, no pain, she has been passing gas now. Physical Exam Vital Signs / I&Os Vital Signs Date Time Temp Pulse Resp B/P Pulse O2 O2 Flow FiO2 Ox Delivery Rate 10/29 0656 98.2 77 16 146/73 100 Nasal 2.0 Cannula 10/29 0319 98.1 81 16 152/83 96 Nasal 2.0 Cannula 10/28 2312 98.1 83 16 147/83 95 Nasal 2.0 Cannula 10/28 2051 2.0 10/28 1752 98.6 95 16 140/75 94 Nasal 2.0 Cannula 10/28 1035 98.1 80 16 133/69 95 Nasal 2.0 Cannula I&O 10/28 0800 10/28 1600 10/29 0000 Intake Total 1293 0 1100 Output Total 1200 1100 Balance 1293 -1200 0 General Appearance Alert, Oriented X3, Cooperative Lungs Normal exam Abdomen Normal exam, Normal bowel sounds, Soft, No tenderness Assessment and Plan Problem List 1. Small bowel obstruction Status Acute Onset Date Unknown Plan Pt. seems to be resolving. could not do sbft due to iodine allergy. Dr. Bell suggested a mag citrate trial instead.
[2016-10-29 11:37] VITALS: BP 140/73
[2016-10-29 15:01] VITALS: BP 121/64
--- NOTE | 2016-10-29 16:40 | Progress Note ---
Subjective General Pt seen and examined. Patient has had return of bowel function last night. Patient was started on a clear liquid diet and is able to tolerate it. Will continue to monitor. Constitutional Denies: Fever, Chills, Sweats, Weakness, Malaise, Other. Eyes Denies: Pain, Vision Change, Conjunctival Inflammation, Eyelid Inflammation, Redness, Other. Respiratory Cough, Wheezing. Denies: Dry, SOB w/exertion, Hemoptysis, Pleuritic Pain, Sputum, Other. Cardiovascular Denies: Chest Pain, Palpitations, Orthopnea, PND, Edema, Light-headedness, Other. Gastrointestinal Denies: Nausea, Vomiting, Abdominal Pain, Diarrhea, Constipation, Melena, Hematochezia, Other. Genitourinary Denies: Dysuria, Frequency, Incontinence, Hematuria, Retention, Other. Musculoskeletal Denies: Neck Pain, Shoulder Pain, Arm Pain, Back Pain, Hand Pain, Leg Pain, Foot Pain, Other. Skin Denies: Rash, Lesions, Jaundice, Bruising, Other. Neurological Denies: Weakness, Numbness, Incoordination, Change in speech, Confusion, Seizures, Other. Physical Exam Vital Signs / I&Os Vital Signs Date Time Temp Pulse Resp B/P Pulse O2 O2 Flow FiO2 Ox Delivery Rate 10/29 1501 98.1 85 16 121/64 96 Room Air 10/29 1137 98.2 80 16 140/73 98 Room Air 10/29 0933 95 Room Air 10/29 0836 1.0 10/29 0818 Nasal 1.0 Cannula 10/29 0656 98.2 77 16 146/73 100 Nasal 2.0 Cannula 10/29 0319 98.1 81 16 152/83 96 Nasal 2.0 Cannula 10/28 2312 98.1 83 16 147/83 95 Nasal 2.0 Cannula 10/28 2051 2.0 10/28 1752 98.6 95 16 140/75 94 Nasal 2.0 Cannula I&O 10/28 0800 04/04 1600 04/05 0000 Intake Total 1293 0 1100 Output Total 1200 1100 Balance 1293 -1200 0 General Appearance Alert, Oriented X3, No acute distress HEENT Atraumatic, PERRLA, Moist mucous membranes Lungs - bilatera ronchi and wheezes present Cardiovascular Normal S1 and S2, - irregularly irregular rate Abdomen Normal bowel sounds, No tenderness, No guarding, No masses Extremities No cyanosis, No edema, Normal pulses, Tanika's sign negative Skin No Breakdown, No Significant Lesions Neurological Normal gait, Normal speech, Sensation intact, Cranial nerves intact , Strength 5/5 x4 ext's Psych/Mental Status Mood normal Assessment and Plan Problem List 1. Small bowel obstruction Status Acute Onset Date Unknown Plan - pt has return of bowel function - pt additionally is able to tolerate a diet - will advance diet slowly as tolerated - pt will most likely be discharged tomorrow 2. COPD (chronic obstructive pulmonary disease) Plan - c/w duonebs and steroid regimen - will monitor for improvement - no role for antibioitics at the moment 3. UTI (urinary tract infection) Plan - UA complicated by the fact the sample was obtained from urostomy bag - despite micobiology findings will complete course of ceftriaxone - no signs of urinary tract infection on blood work
[2016-10-29 18:06] VITALS: BP 149/78
[2016-10-29 22:39] VITALS: BP 132/80
[2016-10-30 02:36] VITALS: BP 147/71
[2016-10-30 06:35] VITALS: BP 155/78
--- NOTE | 2016-10-30 11:13 | Provider's Discharge Care Plan ---
Problem, Goal, Plan Problem List 1. Small bowel obstruction Instructions: - advance diet slowly 2. Essential hypertension Instructions: Take meds as directed 3. COPD (chronic obstructive pulmonary disease) Instructions: - take medications as prescribed - no antibiotics warranted at this time
--- NOTE | 2016-11-07 15:32 | Discharge Summary ---
Discharge Summary Report Admit Date 10/27/16 Discharge Date 10/30/16 Admission Diagnosis small bowel obstruction and uti Discharge Diagnosis small bowel obstruction and UTI Brief History please refer to admission H&P Hospital Course Patient was admitted for small bowel obstruction and had an NG tube placed. Patient had fairly large volume of bowel fluid that was suctioned out of her system. Patient General Appearance Alert, Oriented X3, No acute distress Lungs Normal air movement Cardiovascular Regular Rate Abdomen Soft, No tenderness Discharge Instructions/Meds - follow up with primary care provider
== END 2016-10-30 14:30 | disposition home or self-care (01) | DRG 389 ==
LOC: ED SRH 13:12 → ACUTE2 SRH 16:07 → TRANS SRH 16:07 → ACUTE2 SRH 20:25 → TRANS SRH 20:25 → ACUTE2 SRH 20:25 → TRANS SRH 10-27 07:00 → ED SRH 10-27 16:07 → ACUTE2 SRH 10-27 18:58
PROVIDERS: ADMIT Internal Medicine
PROC: 0D9670Z Drainage of Stomach with Drainage Device, Via Natural or Artificial Opening (ICD-10-PCS; principal; 2016-10-28)
DX: K56.5 Intestinal adhesions [bands] with obstruction (postinfection) (principal); N39.0 Urinary tract infection, site not specified; I10 Essential (primary) hypertension; J44.9 Chronic obstructive pulmonary disease, unspecified; I25.10 Atherosclerotic heart disease of native coronary artery without angina pectoris; Z90.6 Acquired absence of other parts of urinary tract; Z85.51 Personal history of malignant neoplasm of bladder
CPT/HCPCS: 29230; 81523; 85241; 90004; 90047; 90074; 90100; 90148; 90469; 90616; 92610; 92720; 93004; 93140; 94001; 94060; 95059